=== PATIENT | female | born 1940 | race Caucasian/White ===

== ENCOUNTER 2017-01-02 08:35 | Emergency (ER) | payer MEDICARE, OTHER, BC ==
[~2017-01-02] VITALS: Ht 154.9 cm; Wt 72.0 kg
[~2017-01-02 08:35] MED LIST: CYCL1PAK PO; HYDR-3129 PO; HYDR-3580 PO; LETR2.5T PO; MIRA25TA PO; PRAV40TA PO
[2017-01-02 08:36] VITALS: BP 166/81; PULSE 115; RESP 18; TEMP 99.5; O2SAT 95
[2017-01-02] MEDS ORDERED: NORC5TAB PO ×2 (09:41→09:44)
[2017-01-02] MEDS ORDERED: CYCL1TAB29 PO ×2 (09:41→09:44)
--- NOTE | 2017-01-02 09:42 | PD ---
HPI Chief Complaint: Pain: Acute or Chronic Time Seen by Provider: 09:27 Travel History International Travel<30 days: No Contact w/Intl Traveler<30days: No Traveled to known affect area: No History of Present Illness HPI Patient is a 76-year-old female with history of breast cancer who presents emergency Department with complaint of neck pain. Patient states that for the last 2 days she has had pain in her left shoulder blade region that radiates up into the posterior neck. This is throbbing, achy and made worse with movement, lifting above the head. She takes Clayton chronically for chronic back pain. Took 3 of these yesterday with some improvement. This morning, patient ran out of her Flexeril, which also typically helps, prompting her ER visit. She has not had any chest pain, shortness of breath, palpitations and denies any history of cardiac disease. No pleuritic symptoms, history of DVT or PE. PFSH Past Medical History Arthritis: No Asthma: No Autoimmune Disease: No Blood Disorders: No Anxiety: No Depression: No Heart Rhythm Problems: No Cancer: Yes (right breast) Cardiovascular Problems: No High Cholesterol: Yes Chemotherapy: Yes Chest Pain: No Congestive Heart Failure: No COPD: No Cerebrovascular Accident: No Diabetes: No Diminished Hearing: No Endocrine: No GERD: No Genitourinary: No Hepatitis: No Hiatal Hernia: No Hypertension: No Immune Disorder: No Implanted Vascular Access Dvce: Yes (LEFT SUBCL. INFUSAPORT INSERTED 09/2012) Kidney Stones: No Musculoskeletal: Yes (BACK PAIN ) Neurologic: No Psychiatric: No Reproductive: No Respiratory: No Immunizations Current: No Migraines: No Radiation Therapy: Yes (last year) Renal Failure: No Seizures: No Sickle Cell Disease: No Sleep Apnea: No Thyroid Disease: No Ulcer: No ?: Not Menopausal: Yes : 2 Para: 2 Past Surgical History Abdominal Surgery: No AICD: No Arteriovenous Shunt: No Cardiac Surgery: No Ear Surgery: No Endocrine Surgery: No Eye Surgery: No Genitourinary Surgery: No Gynecologic Surgery: No Insulin Pump: No Joint Replacement: No Mastectomy: Yes (RIGHT BREAST 09/27/12) Oral Surgery: No Pacemaker: No Thoracic Surgery: Yes (right breast mastectomy right breast bx) Other Surgery: Yes (PORT REMOVED 10/2013) Social History Alcohol Use: No Tobacco Use: No Substance Use: No Allergies-Medications (Allergen,Severity, Reaction): Coded Allergies: Codeine (Verified Allergy, Severe, palpitations, 11/13/14) Reported Meds & Prescriptions Reported Meds & Active Scripts Active Hydrocodone/Acetaminophen 7.5 mg/325 mg 1 Tab Tab 1 Tab PO Q6H PRN Clayton 10/325 (Hydrocodone-Acetaminophen 10/325) Acetaminophen 325/10 Hydrocodone Tab 1 Tab PO TID PRN Reported Myrbetriq (Mirabegron) 25 Mg Tab 25 Mg PO DAILY Letrozole 2.5 Mg Tab 2.5 Mg PO DAILY Pravachol 40 Mg Tab 40 Mg PO EVERY OTHER DAY Cyclobenzaprine Hcl (Cyclobenzaprine HCl) 10 Mg Tab 10 Mg PO HSPRN Review of Systems Except as stated in HPI: all other systems reviewed are Neg Physical Exam Narrative GENERAL: Well-appearing elderly female in no acute distress SKIN: Warm and dry. HEAD: Normocephalic. EYES: No scleral icterus. No injection or drainage. ENT: Mucous membranes pink and moist. NECK: Supple. Patient is holding herself tense in the neck and prefers not to move. She has reproducible tenderness to palpation in the left paracervical muscles extending down into the left scapular region with palpable spasm. CARDIOVASCULAR: Initially tachycardic, normalized upon recheck. No murmur appreciated. RESPIRATORY: No accessory muscle use. Clear to auscultation. Breath sounds equal bilaterally. MUSCULOSKELETAL: Good distal sensation and pulses. Normal gait. Range of motion of the left shoulder with greater than 90 abduction reproduces patient' s pain. NEUROLOGICAL: Awake and alert. Normal speech. PSYCHIATRIC: Appropriate mood and affect; insight and judgment normal. Data Data Last Documented VS Vital Signs Date Time Temp Pulse Resp B/P Pulse Ox O2 Delivery O2 Flow Rate FiO2 01/02/17 08:36 99.5 115 18 166/81 95 Room Air Orders Electrocardiogram (01/02/17 ) MDM Medical Decision Making Medical Screen Exam Complete: Yes Emergency Medical Condition: Yes Medical Record Reviewed: Yes Differential Diagnosis 76-year-old female with history of breast cancer here with 2 days of left-sided neck/scapular pain worse with movement. Exam is consistent with very musculoskeletal, reproducible pain. She does not have any symptoms of chest pain, shortness of breath or pleuritic pain to suggest PE, ACS. Narrative Course Patient placed on monitor. Twelve-lead EKG shows sinus tachycardia with right bundle-branch block, rate 109. Patient's heart rate was rechecked, and has normalized. Patient's symptoms are very muscular, similar to her previous history of back pain. She typically responds to hydrocodone and Flexeril but ran out of the Flexeril. We'll refill both of these until she can follow-up with her PCP. Diagnosis Primary Impression: Trapezius muscle spasm Additional Impression: Cervical radiculopathy Referrals: Primary Care Physician as needed Patient Instructions: Cervical Radiculopathy (ED), General Instructions, Muscle Spasm (ED) Additional Instructions: Ice the affected area 20 minutes at a time 3-4 times daily. Alternate with heat. Hydrocodone, Flexeril as needed for pain, muscle spasm. Follow-up with primary care provider if symptoms persist and return to the ER for the warning signs discussed. Med/Other Pt SpecificInfo: Prescription(s) given Scripts Cyclobenzaprine (Flexeril)10 Mg Tab10 Mg PO TID #21 TAB Ref 0 Prov:Chanel Shell MD 01/02/17 Hydrocodone-Acetaminophen (Clayton)5-325 mg Tab1-2 Tab PO Q6H PRN (PAIN) #15 TAB Ref 0 Prov:Chanel Shell MD 01/02/17 Disposition: 01 DISCHARGE HOME Condition: Stable Chanel Shell MD Jan 02, 2017 09:42
[2017-01-02 09:43] VITALS: PULSE 99
--- NOTE | 2017-01-02 18:09 | EKG ---
Date Performed: 01/02/2017 Time Performed: 08:49:00 PTAGE: 76 years EKG: SINUS TACHYCARDIA LEFT ATRIAL ENLARGEMENT RIGHT BUNDLE BRANCH BLOCK IS NEW SINCE THE PRIOR TRACING LEFT ANTERIOR FASCICULAR BLOCK ABNORMAL ECG PREVIOUS TRACING : 11/13/2014 23.59 DOCTOR: Avinash Portillo Interpretating Date/Time 01/02/2017 18:07:48
[2017-01-03] MEDS ORDERED: NORC5TAB PO (13:01)
== END 2017-01-02 10:30 | disposition home or self-care (01) ==
LOC: NETRI 08:35
DX: M62.838 Other muscle spasm (principal); M54.12 Radiculopathy, cervical region; R94.31 Abnormal electrocardiogram [ECG] [EKG]; Z85.3 Personal history of malignant neoplasm of breast
CPT/HCPCS: 93005

== ENCOUNTER 2017-08-11 12:14 | Inpatient (IN) | payer MEDICARE, BC, OTHER ==
[~2017-08-11] VITALS: Ht 160 cm; Wt 63.5 kg
[2017-08-11] VITALS (7 sets, daily range): BP systolic 168–239; BP diastolic 86–116; PULSE 106–120; RESP 17–24; TEMP 97.6–99; O2SAT 94–99
[~2017-08-11 12:14] MED LIST changes: +CYCL1TAB29 PO; +NORC5TAB PO
--- NOTE | 2017-08-11 12:38 | PD ---
Physical Exam Date Seen by Provider: Aug 11, 2017 Time Seen by Provider: 12:29 Narrative 76-year-old female resents to the emergency Department with fall approximately one week ago with 3 subsequent falls since then according to the daughter. Patient is complaining of dizziness, disorientation. Patient was recently put on an anti-anxiety medication with secondary lethargy according to the daughter. Her first fall was when she was in the shower and she had "cream on the bottom of her foot which caused her to slip and fall lifestyle consultant. She is having increased difficulty concentrating, but denies headache. Recently was placed on Paxil 10 mg daily approximately one week ago. Patient now has bilateral knee pain. She has nausea and vomiting last evening his diarrhea this morning. He is complaining of lower abdominal discomfort. Vital signs are stable. Patient is awaiting med bed placement Data Data Last Documented VS Vital Signs Date Time Temp Pulse Resp B/P (MAP) Pulse Ox O2 Delivery O2 Flow Rate FiO2 08/11/17 12:16 99.0 120 20 239/116 (157) 95 Room Air [facility] Medical Record Reviewed: Yes Supervised Visit with DOMINGO: Yes Condition: Stable Rivas Denis Aug 11, 2017 12:38
[2017-08-11] MEDS ORDERED: HYDR-3583 PO (13:03)
[2017-08-11] MEDS ORDERED: PRAV40TA2 PO (13:03)
[2017-08-11] MEDS ORDERED: CITA10TA4 PO (13:03)
[2017-08-11] MEDS ORDERED: LETR2.5T PO (13:03)
[2017-08-11] MEDS ORDERED: LOSA50TA PO (13:03)
[2017-08-11] MEDS ORDERED: hydrALAZINE HCL 20 MG/ML VIAL IV PUSH ONE (13:15)
[2017-08-11] MEDS ORDERED: SODIUM CHLORIDE 0.9% FLUSH 10 ML FLUSH IVF PRN (13:15)
--- NOTE | 2017-08-11 14:01 | RADRPT ---
EXAM DATE/TIME: 08/11/2017 13:15 [place] COMPARISON: CHEST SINGLE AP, November 13, 2014, 23:28. INDICATIONS : Chest pain from falling in shower. MEDICAL HISTORY : None. SURGICAL HISTORY : None. ENCOUNTER: Initial ACUITY: 1 day PAIN SCORE: 5/10 LOCATION: Chest, midline. FINDINGS: Portable AP view of the chest demonstrates a normal-sized cardiac silhouette. No effusion, consolidat ion, or pneumothorax is visualized. The bones and soft tissues demonstrate no acute abnormality. EKG lines overlie the patient. CONCLUSION: No acute cardiopulmonary abnormality is identified. Nelson Dutta MD on August 11, 2017 at 13:59 Board Certified Radiologist. This report was verified electronically.
[2017-08-11 14:03] LABS: AUTOMATED NEUTROPHIL # 8.6 TH/MM3 (1.8-7.7); BASOPHIL # 0.1 TH/MM3 (0-0.2); BASOPHIL % 0.9 % (0.0-2.0); EOSINOPHIL # 0.1 TH/MM3 (0-0.4); EOSINOPHIL % 0.6 % (0.0-4.0); HEMATOCRIT 33.7 % (35.0-46.0); HEMO FLAGS DIFF FINAL; LYMPH % 8.6 % (9.0-44.0); LYMPHOCYTE # 0.9 TH/MM3 (1.0-4.8); MEAN CELL VOLUME 84.9 FL (80.0-100.0); MEAN CORPUSCULAR HEMOGLOBIN 28.2 PG (27.0-34.0); MEAN CORPUSCULAR HGB CONC 33.2 % (32.0-36.0); MONO % 9.8 % (0.0-8.0); NEUT % 80.1 % (16.0-70.0); PLATELET COUNT 342 TH/MM3 (150-450); RED BLOOD COUNT 3.97 MIL/MM3 (4.00-5.30); RED CELL DISTRIBUTION WIDTH 14.3 % (11.6-17.2); WHITE BLOOD COUNT 10.8 TH/MM3 (4.0-11.0)
[2017-08-11 14:44] LABS: BICARBONATE 27.8 MEQ/L (21.0-32.0); POTASSIUM 4.5 MEQ/L (3.5-5.1); TOTAL BILIRUBIN ADULT 0.3 MG/DL (0.2-1.0)
[2017-08-11 14:47] LABS: CALCIUM-PROTEIN CORRECTED 14.6 MG/DL (8.5-10.1)
--- NOTE | 2017-08-11 14:48 | PD ---
HPI Chief Complaint: Fall Time Seen by Provider: 12:48 Travel History International Travel<30 days: No Contact w/Intl Traveler<30days: No Traveled to known affect area: No History of Present Illness HPI Patient is a 76-year-old female who presents to emergency room with complaints of frequent falls. Patient reports that for the past week, she has fallen multiple times. Reports that she initially fell in the bathtub last week when she slipped on soap. Reports that over the past few days, she has fallen multiple times. Reports "i don't know why I keep falling." Daughter reports that over the past month, patient was diagnosed with hypertension and was recently started on losartan 50mg. Reports "i think that this is making me fall." Patient reports that she has had headaches the past couple days, reports that she has difficulty concentrating, reports that she saw her primary care doctor a week ago and was started on Paxil as she had a flight of ideas during her evaluation. Patient at this time complains of lower abdominal pain. Patient reports that she has had lower abdominal pain for the past few days, denies any fevers or chills, denies any nausea or vomiting. No other complaints at this time. PFSH Past Medical History Arthritis: No Asthma: No Autoimmune Disease: No Blood Disorders: No Anxiety: No Depression: No Heart Rhythm Problems: No Cancer: Yes (right breast) Cardiovascular Problems: No High Cholesterol: Yes Chemotherapy: Yes (approx 5 years ago.) Chest Pain: No Congestive Heart Failure: No COPD: No Cerebrovascular Accident: No Diabetes: No Diminished Hearing: No Endocrine: No GERD: No Genitourinary: No Hepatitis: No Hiatal Hernia: No Hypertension: No Immune Disorder: No Implanted Vascular Access Dvce: Yes (LEFT SUBCL. INFUSAPORT INSERTED 09/2012) Kidney Stones: No Medical other: Yes (Spinal stenosis macular degenerative) Musculoskeletal: Yes (BACK PAIN ) Neurologic: No Psychiatric: No Reproductive: No Respiratory: No Immunizations Current: No Migraines: No Radiation Therapy: Yes (approx 5 years ago) Renal Failure: No Seizures: No Sickle Cell Disease: No Sleep Apnea: No Thyroid Disease: No Ulcer: No Menopausal: Yes : 2 Para: 2 Past Surgical History Abdominal Surgery: No AICD: No Arteriovenous Shunt: No Cardiac Surgery: No Ear Surgery: No Endocrine Surgery: No Eye Surgery: No Genitourinary Surgery: No Gynecologic Surgery: No Insulin Pump: No Joint Replacement: No Mastectomy: Yes (RIGHT BREAST 09/27/12) Oral Surgery: No Pacemaker: No Thoracic Surgery: Yes (right breast mastectomy right breast bx) Other Surgery: Yes (PORT REMOVED 10/2013) Social History Alcohol Use: No Tobacco Use: No Substance Use: No Allergies-Medications (Allergen,Severity, Reaction): Coded Allergies: codeine (Unverified Allergy, Severe, palpitations, 08/11/17) Reported Meds & Prescriptions Reported Meds & Active Scripts Active Flexeril (Cyclobenzaprine HCl) 10 Mg Tab 10 Mg PO TID Reported Pravastatin 40 Mg Tab 40 Mg PO DAILY Losartan (Losartan Potassium) 50 Mg Tab 50 Mg PO DAILY Letrozole 2.5 Mg Tab 1 Tab PO DAILY Citalopram (Citalopram Hydrobromide) 10 Mg Tab 10 Mg PO DAILY Hydrocodone-Acetaminophen 10-325 mg Tab 1 Tab PO PRN Review of Systems General / Constitutional: No: Fever Eyes: No: Visual changes HENT: Positive: Headaches, Vertigo, Lightheadedness Cardiovascular: No: Chest Pain or Discomfort Respiratory: No: Shortness of Breath Gastrointestinal: Positive: Abdominal Pain Genitourinary: No: Dysuria Musculoskeletal: No: Pain Skin: No Rash Neurologic: Positive: Dizziness, Headache, No: Weakness Psychiatric: No: Depression Endocrine: No: Polydipsia Hematologic/Lymphatic: No: Easy Bruising Physical Exam Narrative GENERAL: moderate distress SKIN: Focused skin assessment warm/dry. HEAD: Atraumatic. Normocephalic. EYES: Pupils equal and round. No scleral icterus. No injection or drainage. ENT: No nasal bleeding or discharge. Mucous membranes pink and moist. NECK: Trachea midline. No JVD. CARDIOVASCULAR: Regular rate and rhythm. No murmur appreciated. RESPIRATORY: No accessory muscle use. Clear to auscultation. Breath sounds equal bilaterally. GASTROINTESTINAL: Abdomen soft, non-tender, nondistended. Hepatic and splenic margins not palpable. MUSCULOSKELETAL: No obvious deformities. No clubbing. Bruising to b/l knees. No edema. NEUROLOGICAL: Awake and alert. No obvious cranial nerve deficits. Motor grossly within normal limits. Normal speech. PSYCHIATRIC: Appropriate mood and affect; insight and judgment normal. Data Data Last Documented VS Vital Signs Date Time Temp Pulse Resp B/P (MAP) Pulse Ox O2 Delivery O2 Flow Rate FiO2 08/11/17 14:42 18 96 Room Air 08/11/17 14:30 114 08/11/17 12:16 99.0 Orders Orders Electrocardiogram (08/11/17 13:12) Prothrombin Time / Inr (Pt) (08/11/17 13:12) Act Partial Throm Time (Ptt) (08/11/17 13:12) Complete Blood Count With Diff (08/11/17 13:12) Comprehensive Metabolic Panel (08/11/17 13:12) Creatine Kinase (Cpk) (08/11/17 13:12) Troponin I (08/11/17 13:12) Urinalysis - C+S If Indicated (08/11/17 13:12) Ct Brain W/O Iv Contrast(Rout) (08/11/17 13:12) Chest, Single Ap (08/11/17 13:12) Ecg Monitoring (08/11/17 13:12) Iv Access Insert/Monitor (08/11/17 13:12) Oximetry (08/11/17 13:12) Blood Glucose (08/11/17 13:12) Sodium Chloride 0.9% Flush (Ns Flush) (08/11/17 13:15) Hydralazine Inj (Apresoline Inj) (08/11/17 13:15) Ct Abd/Pel W/O Iv Contrast (08/11/17 15:10) Ondansetron Inj (Zofran Inj) (08/11/17 15:30) Sodium Chlor 0.9% 1000 Ml Inj (Ns 1000 M (08/11/17 16:15) Urinary Catheter Insert/Apply (08/11/17 17:19) Citalopram (Celexa) (08/12/17 09:00) Cyclobenzaprine (Flexeril) (08/11/17 18:00) Pravastatin (Pravachol) (08/12/17 09:00) Patient Own Medication (08/12/17 09:00) Admit Order (Ed Use Only) (08/11/17 17:24) Labs Laboratory Tests Test 08/11/17 12:58 08/11/17 17:15 White Blood Count 10.8 TH/MM3 Red Blood Count 3.97 MIL/MM3 Hemoglobin 11.2 GM/DL Hematocrit 33.7 % Mean Corpuscular Volume 84.9 FL Mean Corpuscular Hemoglobin 28.2 PG Mean Corpuscular Hemoglobin Concent 33.2 % Red Cell Distribution Width 14.3 % Platelet Count 342 TH/MM3 Mean Platelet Volume 9.4 FL Neutrophils (%) (Auto) 80.1 % Lymphocytes (%) (Auto) 8.6 % Monocytes (%) (Auto) 9.8 % Eosinophils (%) (Auto) 0.6 % Basophils (%) (Auto) 0.9 % Neutrophils # (Auto) 8.6 TH/MM3 Lymphocytes # (Auto) 0.9 TH/MM3 Monocytes # (Auto) 1.1 TH/MM3 Eosinophils # (Auto) 0.1 TH/MM3 Basophils # (Auto) 0.1 TH/MM3 CBC Comment DIFF FINAL Differential Comment Prothrombin Time 11.0 SEC Prothromb Time International Ratio 1.0 RATIO Activated Partial Thromboplast Time 22.0 SEC Blood Urea Nitrogen 56 MG/DL Creatinine 5.20 MG/DL Random Glucose 110 MG/DL Total Protein 8.2 GM/DL Albumin 3.6 GM/DL Calcium Level 15.5 MG/DL Alkaline Phosphatase 76 U/L Aspartate Amino Transf (AST/SGOT) 22 U/L Alanine Aminotransferase (ALT/SGPT) 19 U/L Total Bilirubin 0.3 MG/DL Sodium Level 133 MEQ/L Potassium Level 4.5 MEQ/L Chloride Level 97 MEQ/L Carbon Dioxide Level 27.8 MEQ/L Anion Gap 8 MEQ/L Estimat Glomerular Filtration Rate 8 ML/MIN Protein Corrected Calcium 14.6 MG/DL Total Creatine Kinase 59 U/L Troponin I 0.03 NG/ML Urine Color STRAW Urine Turbidity SLIGHT Urine pH 6.5 Urine Specific [place] 1.010 Urine Protein 100 mg/dL Urine Glucose (UA) NEG mg/dL Urine Ketones NEG mg/dL Urine Occult Blood TRACE Urine Nitrite NEG Urine Bilirubin NEGATIVE Urine Urobilinogen 0.2 MG/DL Urine Leukocyte Esterase MOD Urine WBC 0-2 /hpf Urine Squamous Epithelial Cells 0-5 /hpf Microscopic Urinalysis Comment CATH-CULT NOT IND MDM Medical Decision Making Medical Screen Exam Complete: Yes Emergency Medical Condition: Yes Medical Record Reviewed: Yes Interpretation(s) EKG at 1350: Sinus tach at 108bpm, qt/qtc: 330/393, rbbb Vital Signs Date Time Temp Pulse Resp B/P (MAP) Pulse Ox O2 Delivery O2 Flow Rate FiO2 08/11/17 12:46 109 18 Room Air 08/11/17 12:38 119 204/106 (138) 08/11/17 12:29 08/11/17 12:16 99.0 120 20 239/116 (157) 95 Room Air Laboratory Tests Test 08/11/17 12:58 White Blood Count 10.8 TH/MM3 (4.0-11.0) Red Blood Count 3.97 MIL/MM3 (4.00-5.30) Hemoglobin 11.2 GM/DL (11.6-15.3) Hematocrit 33.7 % (35.0-46.0) Mean Corpuscular Volume 84.9 FL (80.0-100.0) Mean Corpuscular Hemoglobin 28.2 PG (27.0-34.0) Mean Corpuscular Hemoglobin Concent 33.2 % (32.0-36.0) Red Cell Distribution Width 14.3 % (11.6-17.2) Platelet Count 342 TH/MM3 (150-450) Mean Platelet Volume 9.4 FL (7.0-11.0) Neutrophils (%) (Auto) 80.1 % (16.0-70.0) Lymphocytes (%) (Auto) 8.6 % (9.0-44.0) Monocytes (%) (Auto) 9.8 % (0.0-8.0) Eosinophils (%) (Auto) 0.6 % (0.0-4.0) Basophils (%) (Auto) 0.9 % (0.0-2.0) Neutrophils # (Auto) 8.6 TH/MM3 (1.8-7.7) Lymphocytes # (Auto) 0.9 TH/MM3 (1.0-4.8) Monocytes # (Auto) 1.1 TH/MM3 (0-0.9) Eosinophils # (Auto) 0.1 TH/MM3 (0-0.4) Basophils # (Auto) 0.1 TH/MM3 (0-0.2) CBC Comment DIFF FINAL Differential Comment Prothrombin Time 11.0 SEC (9.8-11.6) Prothromb Time International Ratio 1.0 RATIO Activated Partial Thromboplast Time 22.0 SEC (24.3-30.1) Differential Diagnosis Differential includes hypertensive urgency, ICH, TIA, electrolyte abnormality, colitis, uti Narrative Course Patient is a 76-year-old female who presents to emergency room from home for evaluation of falls. Patient reports that she has had multiple falls over the past week, reports that her blood pressure has been out of control and she recently started losartan 1 month ago. Patient denies loss of consciousness with her falls, reports concerns as symptoms have been progressively worsening and patient has increased confusion. Labs as well as ct studies ordered. patient was placed on a cardiac monitor technician - will continue to monitor Vital Signs Date Time Temp Pulse Resp B/P (MAP) Pulse Ox O2 Delivery O2 Flow Rate FiO2 08/11/17 14:42 18 96 Room Air 08/11/17 14:30 114 24 168/88 (114) 98 Room Air 08/11/17 13:44 106 18 189/96 (127) 99 Room Air 08/11/17 12:50 112 18 197/109 (138) 96 Room Air 08/11/17 12:46 109 18 Room Air 08/11/17 12:38 119 204/106 (138) 08/11/17 12:29 08/11/17 12:16 99.0 120 20 239/116 (157) 95 Room Air Laboratory Tests Test 08/11/17 12:58 White Blood Count 10.8 TH/MM3 (4.0-11.0) Red Blood Count 3.97 MIL/MM3 (4.00-5.30) Hemoglobin 11.2 GM/DL (11.6-15.3) Hematocrit 33.7 % (35.0-46.0) Mean Corpuscular Volume 84.9 FL (80.0-100.0) Mean Corpuscular Hemoglobin 28.2 PG (27.0-34.0) Mean Corpuscular Hemoglobin Concent 33.2 % (32.0-36.0) Red Cell Distribution Width 14.3 % (11.6-17.2) Platelet Count 342 TH/MM3 (150-450) Mean Platelet Volume 9.4 FL (7.0-11.0) Neutrophils (%) (Auto) 80.1 % (16.0-70.0) Lymphocytes (%) (Auto) 8.6 % (9.0-44.0) Monocytes (%) (Auto) 9.8 % (0.0-8.0) Eosinophils (%) (Auto) 0.6 % (0.0-4.0) Basophils (%) (Auto) 0.9 % (0.0-2.0) Neutrophils # (Auto) 8.6 TH/MM3 (1.8-7.7) Lymphocytes # (Auto) 0.9 TH/MM3 (1.0-4.8) Monocytes # (Auto) 1.1 TH/MM3 (0-0.9) Eosinophils # (Auto) 0.1 TH/MM3 (0-0.4) Basophils # (Auto) 0.1 TH/MM3 (0-0.2) CBC Comment DIFF FINAL Differential Comment Prothrombin Time 11.0 SEC (9.8-11.6) Prothromb Time International Ratio 1.0 RATIO Activated Partial Thromboplast Time 22.0 SEC (24.3-30.1) Blood Urea Nitrogen 56 MG/DL (7-18) Creatinine 5.20 MG/DL (0.50-1.00) Random Glucose 110 MG/DL (74-106) Total Protein 8.2 GM/DL (6.4-8.2) Albumin 3.6 GM/DL (3.4-5.0) Calcium Level 15.5 MG/DL (8.5-10.1) Alkaline Phosphatase 76 U/L (45-117) Aspartate Amino Transf (AST/SGOT) 22 U/L (15-37) Alanine Aminotransferase (ALT/SGPT) 19 U/L (10-53) Total Bilirubin 0.3 MG/DL (0.2-1.0) Sodium Level 133 MEQ/L (136-145) Potassium Level 4.5 MEQ/L (3.5-5.1) Chloride Level 97 MEQ/L (98-107) Carbon Dioxide Level 27.8 MEQ/L (21.0-32.0) Anion Gap 8 MEQ/L (5-15) Estimat Glomerular Filtration Rate 8 ML/MIN (>89) Protein Corrected Calcium 14.6 MG/DL (8.5-10.1) Total Creatine Kinase 59 U/L (26-192) Troponin I 0.03 NG/ML (0.02-0.05) Last Impressions Abdomen/Pelvis CT 08/11/17 1510 Signed Impressions: Service Date/Time: Friday, August 11, 2017 15:39 - CONCLUSION: 1. Multiple new ill-defined low-attenuation lesions in the liver characteristic of metastatic disease. There is new ascitic fluid as well. 2. Multiple subtle scattered lytic osseous lesions most characteristic of metastatic disease. 3. The uterus is more prominent than on the prior study with ill-defined masslike areas along the posterior aspect. The uterus is not well defined from the surrounding bowel secondary to lack of contrast. 4. Bilateral moderate to severe hydronephrosis. There is dilatation of both ureters. 5. Bladder wall thickening involving the posterior and superior aspects of the bladder which is new from the prior study. This is nonspecific but of concern for possible tumor given the bilateral hydronephrosis. Marshal Ayala MD Head CT [id number]/11/[id number] Signed Impressions: Service Date/Time: Friday, August 11, 2017 15:32 - CONCLUSION: Negative trauma CT Marshal Ayala MD Chest X-Ray [id number]/11/[id number] Signed Impressions: Service Date/Time: Friday, August 11, 2017 13:15 - CONCLUSION: No acute cardiopulmonary abnormality is identified. Nelson Dutta MD patient with cr of 5.2, patient with bilateral hydronephrosis, will require admission case reviewed with Dr. Mejias who accepts pt to service Diagnosis Primary Impression: Renal failure Qualified Codes: N17.9 - Acute kidney failure, unspecified Additional Impression: Hydronephrosis Qualified Codes: N13.2 - Hydronephrosis with renal and ureteral calculous obstruction Admitting Information Admitting Physician Requests: Admit Condition: Stable ZacariasEmber Verenice REAVES Aug 11, 2017 14:48
[2017-08-11] MEDS ORDERED: ONDANSETRON HCL 4 MG/2 ML VIAL IV PUSH ONE (15:30)
[2017-08-11] MEDS ORDERED: SODIUM CHLOR 0.9% 1000 ML INJ 1,000 ML IV ONE (16:15)
--- NOTE | 2017-08-11 16:16 | RADRPT ---
EXAM DATE/TIME: 08/11/2017 15:39 [facility] COMPARISON: CT ABDOMEN & PELVIS W/O CONTRAST, June 12, 2014, 22:39. INDICATIONS : Lower abdomen pain and nausea today. ORAL CONTRAST: No oral contrast ingested. RADIATION DOSE: 9.89 CTDIvol (mGy) MEDICAL HISTORY : Breast carcinoma SURGICAL HISTORY : None. ENCOUNTER: Initial ACUITY: 1 day PAIN SCALE: 7/10 LOCATION: Bilateral lower quadrant TECHNIQUE: Volumetric scanning of the abdomen and pelvis was performed. Using automated exposure control and ad justment of the mA and/or kV according to patient size, radiation dose was kept as low as reasonably achievable to obtain optimal diagnostic quality images. DICOM format image data is available electro nically for review and comparison. FINDINGS: LOWER LUNGS: The visualized lower lungs are clear. LIVER: Liver remains normal in size and shape. There are multiple new ill-defined low-attenuation lesions in the right and left lobe of the liver. The largest is in the right lobe and measures up to 3 cm. Ther e is no ductal dilatation. The gallbladder is unremarkable. There is a small to moderate amount of as citic fluid. SPLEEN: Normal size without lesion. PANCREAS: Within normal limits. KIDNEYS: Normal in size and shape. A moderate-sized cyst is again noted extending off the upper pole of the ri ght kidney. There is bilateral moderate severe hydronephrosis now noted with dilatation of both urete rs. There are no renal calculi. ADRENAL GLANDS: Within normal limits. VASCULAR: There is no aortic aneurysm. BOWEL/MESENTERY: The stomach, small bowel, and colon demonstrate no acute abnormality. There is no free intraperitone al air or fluid. There is a large amount of stool now noted in the distal colon. Ascites is present. ABDOMINAL WALL: Within normal limits. RETROPERITONEUM: There is no lymphadenopathy. BLADDER: Is mild bladder wall thickening involving the posterior and upper portions of the bladder wall. REPRODUCTIVE: The uterus is more prominent on the current study and is not well-defined. There are ill-defined mass like structures in the posterior aspect of the uterus INGUINAL: There is no lymphadenopathy or hernia. MUSCULOSKELETAL: There are multiple scattered subtle lucent lesions involving the vertebral column several ribs as wel l as the pelvic bones. CONCLUSION: 1. Multiple new ill-defined low-attenuation lesions in the liver characteristic of metastatic disease . There is new ascitic fluid as well. 2. Multiple subtle scattered lytic osseous lesions most characteristic of metastatic disease. 3. The uterus is more prominent than on the prior study with ill-defined masslike areas along the pos terior aspect. The uterus is not well defined from the surrounding bowel secondary to lack of contras t. 4. Bilateral moderate to severe hydronephrosis. There is dilatation of both ureters. 5. Bladder wall thickening involving the posterior and superior aspects of the bladder which is new f rom the prior study. This is nonspecific but of concern for possible tumor given the bilateral hydron ephrosis. Marshal Ayala MD on August 11, 2017 at 16:06 Board Certified Radiologist. This report was verified electronically.
--- NOTE | 2017-08-11 16:19 | RADRPT ---
EXAM DATE/TIME: 08/11/2017 15:32 [facility] COMPARISON: CT BRAIN W/O CONTRAST, December 15, 2012, 10:26. INDICATIONS : Trauma, fall onto head three days ago. RADIATION DOSE: 48.90 CTDIvol (mGy) MEDICAL HISTORY : Carcinoma, breast. SURGICAL HISTORY : None. ENCOUNTER: Initial ACUITY: 1 day PAIN SCALE: 5/10 LOCATION: Bilateral head TECHNIQUE: Multiple contiguous axial images were obtained of the head. Using automated exposure control and adj ustment of the mA and/or kV according to patient size, radiation dose was kept as low as reasonably a chievable to obtain optimal diagnostic quality images. DICOM format image data is available electro nically for review and comparison. FINDINGS: CEREBRUM: The ventricles are normal for age. No evidence of midline shift, mass lesion, hemorrhage or acute in farction. No extra-axial fluid collections are seen. POSTERIOR FOSSA: The cerebellum and brainstem are intact. The 4th ventricle is midline. The cerebellopontine angle i s unremarkable. EXTRACRANIAL: The visualized portion of the orbits is intact. SKULL: The calvaria is intact. No evidence of skull fracture. CONCLUSION: Negative trauma CT Marshal Ayala MD on August 11, 2017 at 16:15 Board Certified Radiologist. This report was verified electronically.
[2017-08-11] MEDS ORDERED: MAGNESIUM HYDROXIDE SUSP 30 ML CUP PO PRN (17:30)
[2017-08-11] MEDS ORDERED: LACTULOSE SYRUP 20 GM/30 ML CUP PO PRN (17:30)
[2017-08-11] MEDS ORDERED: SODIUM CHLORIDE 0.9% FLUSH 10 ML FLUSH IV FLUSH PRN (17:30)
[2017-08-11] MEDS ORDERED: SENNOSIDES 8.6 MG TAB PO PRN (17:30)
[2017-08-11] MEDS ORDERED: BISACODYL 10 MG SUPP RECTAL PRN (17:30)
[2017-08-11] MEDS ORDERED: NALOXONE HCL 0.4 MG/ML AMP IV PUSH PRN (17:30)
[2017-08-11] MEDS ORDERED: DILTIAZEM INJ 125 MG in SODIUM CHLORIDE 0.9% INJ 100 ML IV PRN (18:00)
[2017-08-11] MEDS ORDERED: DILTIAZEM HCL 25 MG/5 ML VIAL IV PUSH ONE (18:00)
[2017-08-11] MEDS ORDERED: MORPHINE SULFATE 4 MG/ML INJ IV PUSH PRN (18:00)
[2017-08-11 18:07] LABS: BLOOD, URINE TRACE (NEG); GLUCOSE,URINE NEG (NEG); KETONE, URINE NEG (NEG); NITRITE,URINE NEG (NEG); PH, URINE 6.5 (5.0-8.5); URINE COLOR STRAW (YELLW/STRAW); WBC, URINE 0-2 /hpf (0-5)
[2017-08-11 18:08] LABS: CULTURE IF INDICATED CATH CULTURE NOT IND; SQUAMOUS EPITHELIAL CELL URINE 0-5 /hpf (0-5)
[2017-08-11 18:09] LABS: COMMENT (UR) CATH-CULT NOT IND
--- NOTE | 2017-08-11 18:22 | HHI.HP ---
[facility] Service [facility] Primary Care Physician Kam Lara MD Admission Diagnosis Acute renal failure Diagnoses: (1) Accelerated essential hypertension Diagnosis: Principal (2) Serum calcium elevated Diagnosis: Principal (3) UTI (lower urinary tract infection) Diagnosis: Principal (4) Renal failure Diagnosis: Principal (5) Hydronephrosis Diagnosis: Principal (6) Breast cancer Diagnosis: Secondary (7) Anemia Diagnosis: Principal Chief Complaint: 76-year-old white female came in the hospital with frequent falls over the past week. Patient states daughter says she has fell 3 times at least, but patient doesn't remember. Has recently been placed on BP medicine by her PCP, still has elevated blood pressure, 204/106 on admission to ER, heart rate tachycardic, appears to be sinus tach around 110, high noted 119. Patient also is complaining of abdominal pain, left and right lower quadrants pain has been associated with nausea and decreased appetite for approximately one month. States approximately 8 pound weight loss over the past month, appetite decrease even more over the past 5 days. Patient notes polyuria, but no dysuria. Denies chest pain, no shortness of breath, occasional headache but none now (Geovanna Roy) Travel History International Travel<30 Days: No Contact w/Intl Traveler <30 Da: No Traveled to Known Affected Are: No (Geovanna Roy) History of Present Illness HTN uncontrolled, recent new meds taken Has been falling at least 3 times in 1 week per daughter lower abd. pain X 1 monthwith decreased wt. loss, tachycardia on adm. (Geovanna Roy) Review of Systems ROS Limitations: Poor Historian Constitutional: COMPLAINS OF: Fatigue, Weight loss, Dizziness, Change in appetite Gastrointestinal: COMPLAINS OF: Abdominal pain, Nausea, Vomiting (X1) Musculoskeletal: COMPLAINS OF: Joint pain, Muscle aches Neurologic: COMPLAINS OF: Poor Balance Psychiatric: COMPLAINS OF: Anxiety (Geovanna Roy) Past Family Social History Past Medical History History of right breast cancer received chemotherapy approximately 5 years ago hyperlipidemia urinary frequency over the past month hypertension spinal stenosis macular degeneration degenerative disc disease back pain Past Surgical History Chemotherapy [id number] 2011 Mastectomy right breast Reported Medications Flexeril Pravastatin Losartan Hydrocodone acetaminophen Letrozole Citalopram (Geovanna Roy) Allergies: Coded Allergies: codeine (Unverified Allergy, Severe, palpitations, 08/11/17) Social History Patient currently and lives with her no tobacco alcohol or illicit drug use (Geovanna Roy) Physical Exam Vital Signs Vital Signs Date Time Temp Pulse Resp B/P (MAP) Pulse Ox O2 Delivery O2 Flow Rate FiO2 08/11/17 14:42 18 96 Room Air 08/11/17 14:30 114 24 168/88 (114) 98 Room Air 08/11/17 13:44 106 18 189/96 (127) 99 Room Air 08/11/17 12:50 112 18 197/109 (138) 96 Room Air 08/11/17 12:46 109 18 Room Air 08/11/17 12:38 119 204/106 (138) 08/11/17 12:29 08/11/17 12:16 99.0 120 20 239/116 (157) 95 Room Air Physical Exam GENERAL: This is a elderly patient, resting on stretcher, awake fair historian to current events otherwise poor historian, SKIN: No rashes Cool and dry. HEAD: Normocephalic. Small knot/abrasion secondary to fall, right occipital area EYES: Pupils equal round and reactive. Extraocular motions intact. ENT: Nose without bleeding, purulent drainage or septal hematoma. Uvula midline. Airway patent. NECK: Trachea midline. Supple, nontender, CARDIOVASCULAR: Tachycardic rate and rhythm no audible murmurs rubs or gallops RESPIRATORY: Clear to auscultation. No acute shortness of breath GASTROINTESTINAL: Abdomen soft, taut, non-tender, nondistended. No pain to light palpation MUSCULOSKELETAL: Extremities with trace lower extremity edema bilaterl NEUROLOGICAL: Awake, answers most questions appropriately but is forgetful about recent events Normal speech. Laboratory Laboratory Tests Test 08/11/17 12:58 08/11/17 17:15 White Blood Count 10.8 Red Blood Count 3.97 Hemoglobin 11.2 Hematocrit 33.7 Mean Corpuscular Volume 84.9 Mean Corpuscular Hemoglobin 28.2 Mean Corpuscular Hemoglobin Concent 33.2 Red Cell Distribution Width 14.3 Platelet Count 342 Mean Platelet Volume 9.4 Neutrophils (%) (Auto) 80.1 Lymphocytes (%) (Auto) 8.6 Monocytes (%) (Auto) 9.8 Eosinophils (%) (Auto) 0.6 Basophils (%) (Auto) 0.9 Neutrophils # (Auto) 8.6 Lymphocytes # (Auto) 0.9 Monocytes # (Auto) 1.1 Eosinophils # (Auto) 0.1 Basophils # (Auto) 0.1 CBC Comment DIFF FINAL Differential Comment Prothrombin Time 11.0 Prothromb Time International Ratio 1.0 Activated Partial Thromboplast Time 22.0 Blood Urea Nitrogen 56 Creatinine 5.20 Random Glucose 110 Total Protein 8.2 Albumin 3.6 Calcium Level 15.5 Alkaline Phosphatase 76 Aspartate Amino Transf (AST/SGOT) 22 Alanine Aminotransferase (ALT/SGPT) 19 Total Bilirubin 0.3 Sodium Level 133 Potassium Level 4.5 Chloride Level 97 Carbon Dioxide Level 27.8 Anion Gap 8 Estimat Glomerular Filtration Rate 8 Protein Corrected Calcium 14.6 Total Creatine Kinase 59 Troponin I 0.03 (Geovanna Roy) Result Diagram: 08/11/17 1258 08/11/17 1258 Imaging Last Impressions Abdomen/Pelvis CT 08/11/17 1510 Signed Impressions: Service Date/Time: Friday, August 11, 2017 15:39 - CONCLUSION: 1. Multiple new ill-defined low-attenuation lesions in the liver characteristic of metastatic disease. There is new ascitic fluid as well. 2. Multiple subtle scattered lytic osseous lesions most characteristic of metastatic disease. 3. The uterus is more prominent than on the prior study with ill-defined masslike areas along the posterior aspect. The uterus is not well defined from the surrounding bowel secondary to lack of contrast. 4. Bilateral moderate to severe hydronephrosis. There is dilatation of both ureters. 5. Bladder wall thickening involving the posterior and superior aspects of the bladder which is new from the prior study. This is nonspecific but of concern for possible tumor given the bilateral hydronephrosis. Marshal Ayala MD Head CT 08/11/17 1312 Signed Impressions: Service Date/Time: Friday, August 11, 2017 15:32 - CONCLUSION: Negative trauma CT Marshal Ayala MD Chest X-Ray 08/11/17 1312 Signed Impressions: Service Date/Time: Friday, August 11, 2017 13:15 - CONCLUSION: No acute cardiopulmonary abnormality is identified. Nelson Dutta MD (Geovanna Roy) Septic Shock Reassessment Heart: Other (tachycardia) Lungs: Clear Skin: Warm, Dry Peripheral Pulses: Bounding Right Radial Bounding Left Radial Bounding Right Popliteal Bounding Left Popliteal Bounding Right Dorsalis Pedis Bounding Left Dorsalis Pedis Bounding Right Posterior Tibial Bounding Left Posterior Tibial Capillary Refill: Brisk (Geovanna Roy) Caprini VTE Risk Assessment Caprini VTE Risk Assessment: No/Low Risk (score <= 1) Caprini Risk Assessment Model Point Value = 1 Point Value = 2 Point Value = 3 Point Value = 5 Age 41-60 Minor surgery BMI > 25 kg/m2 Swollen legs Varicose veins or History of unexplained or recurrent spontaneous Oral contraceptives or hormone replacement Sepsis (< 1 month) Serious lung disease, including pneumonia (< 1 month) Abnormal pulmonary function Acute myocardial infarction Congestive heart failure (< 1 month) History of inflammatory bowel disease Medical patient at bed rest Age 61-74 Arthroscopic surgery Major open surgery (> 45 min) Laparoscopic surgery (> 45 min) Malignancy Confined to bed (> 72 hours) Immobilizing plaster cast Central venous access Age >= 75 History of VTE Family history of VTE Factor V Leiden Prothrombin [id number] Lupus anticoagulant Anticardiolipin antibodies Elevated serum homocysteine Heparin-induced thrombocytopenia Other congenital or acquired thrombophilia Stroke (< 1 month) Elective arthroplasty Hip, pelvis, or leg fracture Acute spinal cord injury (< 1 month) Prophylaxis Regimen Total Risk Factor Score Risk Level Prophylaxis Regimen 0-1 Low Early ambulation 2 Moderate Order ONE of the following: *Sequential Compression Device (SCD) *Heparin 5000 units SQ BID 3-4 Higher Order ONE of the following medications: *Heparin 5000 units SQ TID *Enoxaparin/Lovenox 40 mg SQ daily (WT < 150 kg, CrCl > 30 mL/min) *Enoxaparin/Lovenox 30 mg SQ daily (WT < 150 kg, CrCl > 10-29 mL/min) *Enoxaparin/Lovenox 30 mg SQ BID (WT < 150 kg, CrCl > 30 mL/min) AND/OR *Sequential Compression Device (SCD) 5 or more Highest Order ONE of the following medications: *Heparin 5000 units SQ TID (Preferred with Epidurals) *Enoxaparin/Lovenox 40 mg SQ daily (WT < 150 kg, CrCl > 30 mL/min) *Enoxaparin/Lovenox 30 mg SQ daily (WT < 150 kg, CrCl > 10-29 mL/min) *Enoxaparin/Lovenox 30 mg SQ BID (WT < 150 kg, CrCl > 30 mL/min) AND *Sequential Compression Device (SCD) (Geovanna Roy) Assessment and Plan Problem List: (1) Hydronephrosis ICD Codes: N13.30 - Unspecified hydronephrosis Status: Acute (2) Renal failure ICD Codes: N19 - Unspecified kidney failure Status: Acute (3) Accelerated essential hypertension ICD Codes: I10 - Essential (primary) hypertension (4) Serum calcium elevated ICD Codes: E83.52 - Hypercalcemia (5) Breast cancer ICD Codes: C50.919 - Breast cancer Status: Acute (6) Anemia ICD Codes: D64.9 - Anemia Status: Acute Assessment and Plan Abdominal pain, left and right lower quadrant, CT scan noted with possible metastasis, liver lesions, hydronephrosis bilateral, hypercalcemia, hematology consult for their expert opinion and plan a care Vital signs monitored every 4hrs, labs to be drawn in the morning, consider pain management if needed Monitor bowel regimen, states normal BM this a.m. Hydronephrosis with renal and ureteral calculus obstruction, nephrology consult , assist with plan of care Acute kidney failure, , monitor vital signs, appreciate nephrology input Hypertension uncontrolled, medical management reconcile medications, will add hydralazine IV PO for plan of 160/90 Hypercalcemia severe, probable secondary to #1 Tachycardia, without history of heart disease, possible secondary to uncontrolled hypertension, fall, stressors, ECG monitoring and or continue telemetry Patient does have positive trace of pedal edema bilateral, Lasix 20 g IV twice a day, I&O, urinary catheter ordered in the emergency room, possible urethral calculus obstruction DVT prophylaxis heparin PUD prophylaxis, Pepcid Discussed With: Nurse, Family (patient), Other (Dr. Mejias, seen on his behalf) (Geovanna Roy) Assessment and Plan seen, examined by myself, Dr Mejias, today Discussed with patient Discussed with emergency physician Admitted with frequent falls Acute renal failure Bilateral hydronephrosis Possible liver metastases Sinus tachycardia Severe hypertension Severe hypercalcemia Rule out complications of metastatic malignancy, versus possible multiple myeloma Consult oncology Consult urology Consult nephrology Prognosis guarded Give high flow IV fluids Pain control Cardizem transferred for controlling both tachycardia and hypertension As needed hydralazine IV Lasix to hopefully bring the calcium level down Check sedimentation rate Check serum protein electrophoresis Discussed with mid level provider The exam, history, and the medical decision-making described in the above note were completed with the assistance of the mid-level provider. I reviewed the findings presented. I attest that I had a [id number] encounter with the patient on the same day, and personally performed and documented my assessment and findings in the medical record. (Anthony Mejias MD) Physician Certification Order for Inpatient Services The services are ordered in accordance with Medicare regulations or non- Medicare payer requirements, as applicable. In the case of services not specified as inpatient-only, they are appropriately provided as inpatient services in accordance with the 2-midnight benchmark. days is the estimated time the patient will need to remain in the hospital, assuming treatment plan goals are met and no additional complications. (Geovanna Roy) 2 Midnight Certification Type: Admission for Inpatient Services Estimated LOS (days): 4 Post-Hospital Plan: Not yet determined (Anthony Mejias MD) Problem Qualifiers (1) Renal failure: Qualified Codes: N17.9 - Acute kidney failure, unspecified (2) Hydronephrosis: Qualified Codes: N13.2 - Hydronephrosis with renal and ureteral calculous obstruction (3) Breast cancer: Geovanna Roy Aug 11, 2017 18:22 Anthony Mjeias MD Aug 11, 2017 19:25
[2017-08-11] MEDS: FUROSEMIDE 20 MG/2 ML VIAL IV PUSH SCH (18:33)
[2017-08-11] MEDS: CYCLOBENZAPRINE HCL 10 MG TAB PO SCH (18:34)
[2017-08-11] MEDS: SODIUM CHLOR 0.9% 1000 ML INJ 1,000 ML IV SCH ×2 (18:34→20:32)
[2017-08-11] MEDS: HEPARIN SODIUM - SQ 10,000 UNITS/ML VIAL SQ SCH (20:37)
[2017-08-11] MEDS: DOCUSATE SODIUM 50 MG/SENNA 8.6 MG TAB PO SCH (20:37)
[2017-08-11] MEDS: SODIUM CHLORIDE 0.9% FLUSH 10 ML FLUSH IV FLUSH SCH (20:37)
[2017-08-12] VITALS (12 sets, daily range): BP systolic 120–190; BP diastolic 58–92; PULSE 64–110; RESP 16–19; TEMP 95.6–98.1; O2SAT 92–100
[2017-08-12] MEDS ORDERED: SODIUM CHLORID 0.9% 500 ML IV PRN (00:30)
[2017-08-12] MEDS ORDERED: LACTATED RINGER'S 1000 ML IV PRN (00:30)
[2017-08-12] MEDS ORDERED: POVIDONE IODINE 5% (ANTISEPSIS KIT) 4 APPLICATIONS EACH NARE PRN (00:30)
[2017-08-12] MEDS ORDERED: CHLORHEXIDINE GLUCONATE 2 % 1 PACK (2 CLOTHS) TOPICAL PRN (00:30)
[2017-08-12 07:41] LABS: AUTOMATED NEUTROPHIL # 8.6 TH/MM3 (1.8-7.7); BASOPHIL # 0.1 TH/MM3 (0-0.2); BASOPHIL % 0.5 % (0.0-2.0); EOSINOPHIL % 0.1 % (0.0-4.0); HEMATOCRIT 30.4 % (35.0-46.0); HEMO FLAGS DIFF FINAL; LYMPH % 6.1 % (9.0-44.0); LYMPHOCYTE # 0.6 TH/MM3 (1.0-4.8); MEAN CELL VOLUME 84.6 FL (80.0-100.0); MEAN CORPUSCULAR HEMOGLOBIN 28.2 PG (27.0-34.0); MEAN CORPUSCULAR HGB CONC 33.3 % (32.0-36.0); MONO % 10.7 % (0.0-8.0); NEUT % 82.6 % (16.0-70.0); PLATELET COUNT 295 TH/MM3 (150-450); RED BLOOD COUNT 3.59 MIL/MM3 (4.00-5.30); RED CELL DISTRIBUTION WIDTH 14.3 % (11.6-17.2); WHITE BLOOD COUNT 10.4 TH/MM3 (4.0-11.0)
[2017-08-12] MEDS: HEPARIN SODIUM - SQ 10,000 UNITS/ML VIAL SQ SCH ×2 (08:00→20:00)
[2017-08-12] MEDS: SODIUM CHLOR 0.9% 1000 ML INJ 1,000 ML IV SCH ×2 (08:10→13:53)
[2017-08-12] MEDS: SODIUM CHLORIDE 0.9% FLUSH 10 ML FLUSH IV FLUSH SCH ×2 (08:15→21:49)
[2017-08-12] MEDS: CYCLOBENZAPRINE HCL 10 MG TAB PO SCH ×3 (08:16→18:06)
[2017-08-12] MEDS: CITALOPRAM HYDROBROMIDE 20 MG TAB PO SCH (08:17)
[2017-08-12] MEDS: hydrALAZINE HCL 50 MG TAB PO PRN ×2 (08:18→23:51)
[2017-08-12] MEDS: PRAVASTATIN SOD 40 MG TAB PO SCH (08:19)
[2017-08-12] MEDS: FUROSEMIDE 20 MG/2 ML VIAL IV PUSH SCH ×2 (08:20→18:07)
[2017-08-12] MEDS: DOCUSATE SODIUM 50 MG/SENNA 8.6 MG TAB PO SCH ×2 (08:20→21:49)
[2017-08-12 08:22] LABS: TOTAL PROTEIN SPE 6.6 GM/DL (6.0-7.6)
--- NOTE | 2017-08-12 08:29 | PD.CONS ---
[facility] Service Urology Consult Requested By Primary Care Physician Kam Lara MD Diagnosis: (1) Hydronephrosis ICD Code: N13.30 - Unspecified hydronephrosis (2) Renal failure ICD Code: N19 - Unspecified kidney failure (3) UTI (lower urinary tract infection) ICD Code: N39.0 - UTI (lower urinary tract infection) History of Present Illness 76 yo female presented to ER with frequent falls over past 3 days. She also c/o lower abdominal pain, bilateral flank pain, left > right, nausea, general malaise for almost 1 month. During workup, she was found to have Creatinine 5.2. CT A/P without Contrast showed bilateral hydroureteronephrosis with questionable mass in bladder. She c/o urinary frequency, but denies urgency, hematuria, dysuria, fevers, chills. She also has lost about 8 lbs over the month and not much of an appetite. Denies h/o kidney stones but has occasional UTI. She has a h/o Breast Cancer. CT also showed liver lesion, sclerotic bone lesions c/w metastatic disease. Review of Systems Constitutional: COMPLAINS OF: Weight loss, Change in appetite, DENIES: Diaphoretic episodes, Fatigue, Fever, Weight gain, Chills, Dizziness, Night Sweats Endocrine: DENIES: Abnorml menstrual pattern, Heat/cold intolerance, Polydipsia , Polyuria, Polyphagia Eyes: DENIES: Blurred vision, Diplopia, Eye inflammation, Eye pain, Vision loss , Photosensitivity, Double Vision Ears, nose, mouth, throat: DENIES: Tinnitus, Hearing loss, Vertigo, Nasal discharge, Oral lesions, Throat pain, Hoarseness, Ear Pain, Running Nose, Epistaxis, Sinus Pain, Toothache, Odynophagia Respiratory: DENIES: Apneas, Cough, Snoring, Wheezing, Hemoptysis, Sputum production, Shortness of breath Cardiovascular: DENIES: Chest pain, Palpitations, Syncope, Dyspnea on Exertion , PND, Lower Extremity Edema, Orthopnea, Claudication Gastrointestinal: COMPLAINS OF: Abdominal pain, Nausea, DENIES: Black stools, Bloody stools, Constipation, Diarrhea, Vomiting, Difficulty Swallowing, Anorexia Genitourinary: DENIES: Abnormal vaginal bleeding, Dysmenorrhea, Dyspareunia, Sexual dysfunction, Urinary frequency, Urinary incontinence, Urgency, Hematuria , Dysuria, Nocturia, Vaginal discharge Musculoskeletal: DENIES: Joint pain, Muscle aches, Stiffness, Joint Swelling, Back pain, Neck pain Integumentary: DENIES: Abnormal pigmentation, Pruritus, Rash, Nail changes, Breast masses, Breast skin changes, Nipple discharge Hematologic/lymphatic: DENIES: Bruising, Lymphadenopathy Immunologic/allergic: DENIES: Eczema, Urticaria Neurologic: DENIES: Abnormal gait, Headache, Localized weakness, Paresthesias, Seizures, Speech Problems, Tremor, Poor Balance Psychiatric: DENIES: Anxiety, Confusion, Mood changes, Depression, Hallucinations, Agitation, Suicidal Ideation, Homicidal Ideation, Delusions Except as stated in HPI: all other systems reviewed are Neg Past Family Social History Past Medical History HTN, hyperlipidemia, back pain, Breast Cancer Past Surgical History Right Mastectomy Allergies: Coded Allergies: codeine (Unverified Allergy, Severe, palpitations, 08/11/17) Active Ordered Medications Current Medications Medications (Trade) Dose Ordered Sig/Joshua Route Start Time Stop Time Status Last Admin (CeleXA) 10 mg DAILY PO 08/12/17 09:00 (Flexeril) 10 mg TID PO 08/11/17 18:00 08/11/17 18:34 (Pravachol) 40 mg DAILY PO 08/12/17 09:00 Sodium Chloride 1,000 ml @ 150 mls/hr Q6H40M IV 08/11/17 17:23 08/11/17 20:32 (NS Flush) 2 ml UNSCH PRN IV FLUSH 08/11/17 17:30 (NS Flush) 2 ml BID IV FLUSH 08/11/17 21:00 08/11/17 20:37 (Heparin Inj) 5,000 units Q12H SQ 08/11/17 20:00 08/11/17 20:37 (Narcan Inj) 0.4 mg UNSCH PRN IV PUSH 08/11/17 17:30 (Gisselle-Colace) 1 tab BID PO 08/11/17 21:00 08/11/17 20:37 (Milk Of Magnesia Liq) 30 ml Q12H PRN PO 08/11/17 17:30 (Senokot) 17.2 mg Q12H PRN PO 08/11/17 17:30 (Dulcolax Supp) 10 mg DAILY PRN RECTAL 08/11/17 17:30 (Lactulose Liq) 30 ml DAILY PRN PO 08/11/17 17:30 (Lasix Inj) 20 mg BID@09,18 IV PUSH 08/11/17 18:00 08/11/17 18:33 (Apresoline) 50 mg Q4HR PRN PO 08/11/17 17:30 Diltiazem HCl 125 mg/Sodium Chloride 125 ml @ 5 mls/hr TITRATE PRN IV 08/11/17 18:00 Patient Own Medication PT OWN MED: (Letroz... DAILY PO 08/12/17 09:00 Future Hold (Morphine Inj) 3 mg Q3H PRN IV PUSH 08/11/17 18:00 Lactated Ringer's 1,000 ml @ 30 mls/hr Q24H PRN IV 08/12/17 00:30 08/15/17 00:29 Sodium Chloride 500 ml @ 30 mls/hr [id number] PRN IV 08/12/17 00:30 08/15/17 00:29 (Betadine 5% Antisepsis Kit) 1 applic CHARACTER ACTRESS PRN EACH NARE 08/12/17 00:30 08/15/17 00:29 (Chlorhexidine 2% Cloth) 3 pack CHARACTER ACTRESS PRN TOPICAL 08/12/17 00:30 08/15/17 00:29 Family History Denies urolithiasis, malignancies Social History Denies tobacco, EtOH, illicit drugs. Physical Exam Vital Signs Date Time Temp Pulse Resp B/P (MAP) Pulse Ox O2 Delivery O2 Flow Rate FiO2 08/12/17 04:59 106 08/12/17 04:32 96.0 110 18 166/90 (115) 96 08/12/17 00:21 96.3 102 17 146/84 (104) 96 08/11/17 20:17 97.6 107 17 184/86 (118) 94 08/11/17 19:03 08/11/17 14:42 18 96 Room Air 08/11/17 14:30 114 24 168/88 (114) 98 Room Air 08/11/17 13:44 106 18 189/96 (127) 99 Room Air 08/11/17 12:50 112 18 197/109 (138) 96 Room Air 08/11/17 12:46 109 18 Room Air 08/11/17 12:38 119 204/106 (138) 08/11/17 12:29 08/11/17 12:16 99.0 120 20 239/116 (157) 95 Room Air Physical Exam GENERAL: This is a thin, well-developed patient, in no apparent distress. SKIN: No rashes, ecchymoses or lesions. Cool and dry. HEAD: Atraumatic. Normocephalic. No temporal or scalp tenderness. EYES: Pupils equal round and reactive. Extraocular motions intact. No scleral icterus. No injection or drainage. ENT: Nose without bleeding, purulent drainage or septal hematoma. Throat without erythema, tonsillar hypertrophy or exudate. Uvula midline. Airway patent. NECK: Trachea midline. No JVD or lymphadenopathy. Supple, nontender, no meningeal signs. CARDIOVASCULAR: Regular rate and rhythm without murmurs, gallops, or rubs. RESPIRATORY: Clear to auscultation. Breath sounds equal bilaterally. No wheezes , rales, or rhonchi. GASTROINTESTINAL: Abdomen soft, non-tender, nondistended. No hepato-splenomegaly , or palpable masses. No guarding. GENITOURINARY: No CVA tenderness. Pelvic Exam deferred. MUSCULOSKELETAL: Extremities without clubbing, cyanosis, or edema. No joint tenderness, effusion, or edema noted. No calf tenderness. Negative Homans sign bilaterally. NEUROLOGICAL: Awake and alert. Cranial nerves II through XII intact. Motor and sensory grossly within normal limits. Five out of 5 muscle strength in all muscle groups. Normal speech. Lab results reviewed: Yes Laboratory Tests Test 08/11/17 12:58 08/11/17 17:15 08/12/17 06:57 White Blood Count 10.8 10.4 Red Blood Count 3.97 3.59 Hemoglobin 11.2 10.1 Hematocrit 33.7 30.4 Mean Corpuscular Volume 84.9 84.6 Mean Corpuscular Hemoglobin 28.2 28.2 Mean Corpuscular Hemoglobin Concent 33.2 33.3 Red Cell Distribution Width 14.3 14.3 Platelet Count 342 295 Mean Platelet Volume 9.4 9.1 Neutrophils (%) (Auto) 80.1 82.6 Lymphocytes (%) (Auto) 8.6 6.1 Monocytes (%) (Auto) 9.8 10.7 Eosinophils (%) (Auto) 0.6 0.1 Basophils (%) (Auto) 0.9 0.5 Neutrophils # (Auto) 8.6 8.6 Lymphocytes # (Auto) 0.9 0.6 Monocytes # (Auto) 1.1 1.1 Eosinophils # (Auto) 0.1 0.0 Basophils # (Auto) 0.1 0.1 CBC Comment DIFF FINAL DIFF FINAL Differential Comment Erythrocyte Sedimentation Rate 44 Prothrombin Time 11.0 Prothromb Time International Ratio 1.0 Activated Partial Thromboplast Time 22.0 Blood Urea Nitrogen 56 Creatinine 5.20 Random Glucose 110 Total Protein 8.2 Albumin 3.6 Calcium Level 15.5 Alkaline Phosphatase 76 Aspartate Amino Transf (AST/SGOT) 22 Alanine Aminotransferase (ALT/SGPT) 19 Total Bilirubin 0.3 Sodium Level 133 Potassium Level 4.5 Chloride Level 97 Carbon Dioxide Level 27.8 Anion Gap 8 Estimat Glomerular Filtration Rate 8 Uric Acid 7.6 Protein Corrected Calcium 14.6 Total Creatine Kinase 59 Troponin I 0.03 Urine Color STRAW Urine Turbidity SLIGHT Urine pH 6.5 Urine Specific [place] 1.010 Urine Protein 100 Urine Glucose (UA) NEG Urine Ketones NEG Urine Occult Blood TRACE Urine Nitrite NEG Urine Bilirubin NEGATIVE Urine Urobilinogen 0.2 Urine Leukocyte Esterase MOD Urine WBC 0-2 Urine Squamous Epithelial Cells 0-5 Microscopic Urinalysis Comment CATH-CULT NOT IND Result Diagram: 08/12/17 0657 08/11/17 1258 Personally reviewed images: Yes (Bilateral hydroureteronephrosis with possible bladder mass. ) Imaging Last Impressions Abdomen/Pelvis CT 08/11/17 1510 Signed Impressions: Service Date/Time: Friday, August 11, 2017 15:39 - CONCLUSION: 1. Multiple new ill-defined low-attenuation lesions in the liver characteristic of metastatic disease. There is new ascitic fluid as well. 2. Multiple subtle scattered lytic osseous lesions most characteristic of metastatic disease. 3. The uterus is more prominent than on the prior study with ill-defined masslike areas along the posterior aspect. The uterus is not well defined from the surrounding bowel secondary to lack of contrast. 4. Bilateral moderate to severe hydronephrosis. There is dilatation of both ureters. 5. Bladder wall thickening involving the posterior and superior aspects of the bladder which is new from the prior study. This is nonspecific but of concern for possible tumor given the bilateral hydronephrosis. Marshal Ayala MD Head CT 9/23/17 1312 Signed Impressions: Service Date/Time: Friday, August 11, 2017 15:32 - CONCLUSION: Negative trauma CT Marshal Ayala MD Chest X-Ray 08/11/17 1312 Signed Impressions: Service Date/Time: Friday, August 11, 2017 13:15 - CONCLUSION: No acute cardiopulmonary abnormality is identified. Nelson Dutta MD Assessment and Plan Problem List: (1) Hydronephrosis ICD Code: N13.30 - Unspecified hydronephrosis Status: Acute (2) Renal failure ICD Code: N19 - Unspecified kidney failure Status: Acute Assessment and Plan Keep NPO To OR this morning for cystoscopy, bilateral retrograde pyelogram, bilateral ureteral stent insertion. I discussed the risks, benefits, alternatives of the procedure with her, including pain, bleeding, infection, anesthesia risks, inability to insert stents, need for nephrostomy tubes, among tohers. She understood these risks. All questions were answered. Informed consent was obtained. Problem Qualifiers (1) Hydronephrosis: Qualified Codes: N13.2 - Hydronephrosis with renal and ureteral calculous obstruction (2) Renal failure: Qualified Codes: N17.9 - Acute kidney failure, unspecified Rock Herring MD Aug 12, 2017 08:29
[2017-08-12 08:49] LABS: BICARBONATE 28.6 MEQ/L (21.0-32.0); POTASSIUM 4.2 MEQ/L (3.5-5.1)
[2017-08-12] MEDS ORDERED: LETROZOLE 2.5 MG PO SCH (09:00)
[2017-08-12] MEDS ORDERED: LETROZOLE PO SCH (09:00)
[2017-08-12] MEDS ORDERED: ACETAMINOPHEN 1000 MG/100 ML 100 ML IV ONE (09:07)
[2017-08-12] MEDS ORDERED: ceFAZolin INJ 1,000 MG VIAL ONE (09:14)
[2017-08-12] MEDS ORDERED: DILTIAZEM HCL 25 MG/5 ML VIAL ONE (09:14)
[2017-08-12 09:49] LABS: CALCIUM-PROTEIN CORRECTED 15.2 MG/DL (8.5-10.1)
--- NOTE | 2017-08-12 10:05 | PD.OP ---
Operative Report Date of Surgery: Aug 12, 2017 Preoperative Diagnosis: 1. Bilateral Hydronephrosis 2. ARF Postoperative Diagnosis: same Procedure: cystoscopy, bilateral retrograde pyelogram, bilateral ureteral stent insertion Surgeon: Rock Herring Batch Or Continuous Still Operator(s): N/A Operation and Findings: Bilateral Hydronephrosis secondary to extrinsic compression, likely from Uterus Bladder appeared chronically inflamed, trigone was distorted but no obvious mass in bladder. Stents good for up to 3 months. Monitor for post obstructive diuresis Rock Herring MD Aug 12, 2017 10:05
[2017-08-12] MEDS ORDERED: DO NOT ADM ANY ANTICOAGULANT DRUGS PRN (10:20)
--- NOTE | 2017-08-12 11:03 | HHI.PR ---
Subjective Subjective Remarks surgery this am (Geovanna Roy) Vitals/Results Intake & Output 08/12/17 08/12/17 08/13/17 15:00 23:00 07:00 Intake Total 700 ml Output Total 0 ml Balance 700 ml Other 700 ml Estimated Blood Loss 0 ml Vital Signs Vital Signs Date Time Temp Pulse Resp B/P (MAP) Pulse Ox O2 Delivery O2 Flow Rate FiO2 08/12/17 10:58 97.6 08/12/17 10:45 101 18 154/77 (102) 97 Nasal Cannula 3 08/12/17 10:20 96.0 103 18 168/85 (112) 97 Nasal Cannula 3 08/12/17 10:20 96.0 08/12/17 08:00 97.2 96 19 190/91 (124) 92 08/12/17 04:59 106 08/12/17 04:32 96.0 110 18 166/90 (115) 96 08/12/17 00:21 96.3 102 17 146/84 (104) 96 08/11/17 20:17 97.6 107 17 184/86 (118) 94 08/11/17 19:03 08/11/17 14:42 18 96 Room Air 08/11/17 14:30 114 24 168/88 (114) 98 Room Air 08/11/17 13:44 106 18 189/96 (127) 99 Room Air 08/11/17 12:50 112 18 197/109 (138) 96 Room Air 08/11/17 12:46 109 18 Room Air 08/11/17 12:38 119 204/106 (138) 08/11/17 12:29 08/11/17 12:16 99.0 120 20 239/116 (157) 95 Room Air (Geovanna Roy) CBC/BMP: 08/12/17 0657 08/12/17 0657 Lab Results Laboratory Tests Test 08/11/17 12:58 08/11/17 17:15 08/12/17 06:57 White Blood Count 10.8 TH/MM3 10.4 TH/MM3 Red Blood Count 3.97 MIL/MM3 3.59 MIL/MM3 Hemoglobin 11.2 GM/DL 10.1 GM/DL Hematocrit 33.7 % 30.4 % Mean Corpuscular Volume 84.9 FL 84.6 FL Mean Corpuscular Hemoglobin 28.2 PG 28.2 PG Mean Corpuscular Hemoglobin Concent 33.2 % 33.3 % Red Cell Distribution Width 14.3 % 14.3 % Platelet Count 342 TH/MM3 295 TH/MM3 Mean Platelet Volume 9.4 FL 9.1 FL Neutrophils (%) (Auto) 80.1 % 82.6 % Lymphocytes (%) (Auto) 8.6 % 6.1 % Monocytes (%) (Auto) 9.8 % 10.7 % Eosinophils (%) (Auto) 0.6 % 0.1 % Basophils (%) (Auto) 0.9 % 0.5 % Neutrophils # (Auto) 8.6 TH/MM3 8.6 TH/MM3 Lymphocytes # (Auto) 0.9 TH/MM3 0.6 TH/MM3 Monocytes # (Auto) 1.1 TH/MM3 1.1 TH/MM3 Eosinophils # (Auto) 0.1 TH/MM3 0.0 TH/MM3 Basophils # (Auto) 0.1 TH/MM3 0.1 TH/MM3 CBC Comment DIFF FINAL DIFF FINAL Differential Comment Erythrocyte Sedimentation Rate 44 mm/hr Prothrombin Time 11.0 SEC Prothromb Time International Ratio 1.0 RATIO Activated Partial Thromboplast Time 22.0 SEC Blood Urea Nitrogen 56 MG/DL 60 MG/DL Creatinine 5.20 MG/DL 5.42 MG/DL Random Glucose 110 MG/DL 100 MG/DL Total Protein 8.2 GM/DL 7.0 GM/DL Albumin 3.6 GM/DL Calcium Level 15.5 MG/DL 15.0 MG/DL Alkaline Phosphatase 76 U/L Aspartate Amino Transf (AST/SGOT) 22 U/L Alanine Aminotransferase (ALT/SGPT) 19 U/L Total Bilirubin 0.3 MG/DL Sodium Level 133 MEQ/L 136 MEQ/L Potassium Level 4.5 MEQ/L 4.2 MEQ/L Chloride Level 97 MEQ/L 99 MEQ/L Carbon Dioxide Level 27.8 MEQ/L 28.6 MEQ/L Anion Gap 8 MEQ/L 8 MEQ/L Estimat Glomerular Filtration Rate 8 ML/MIN 8 ML/MIN Uric Acid 7.6 MG/DL Protein Corrected Calcium 14.6 MG/DL 15.2 MG/DL Total Creatine Kinase 59 U/L Troponin I 0.03 NG/ML Urine Color STRAW Urine Turbidity SLIGHT Urine pH 6.5 Urine Specific [place] 1.010 Urine Protein 100 mg/dL Urine Glucose (UA) NEG mg/dL Urine Ketones NEG mg/dL Urine Occult Blood TRACE Urine Nitrite NEG Urine Bilirubin NEGATIVE Urine Urobilinogen 0.2 MG/DL Urine Leukocyte Esterase MOD Urine WBC 0-2 /hpf Urine Squamous Epithelial Cells 0-5 /hpf Microscopic Urinalysis Comment CATH-CULT NOT IND Imaging Remarks Last Impressions Abdomen/Pelvis CT 08/11/17 1510 Signed Impressions: Service Date/Time: Friday, August 11, 2017 15:39 - CONCLUSION: 1. Multiple new ill-defined low-attenuation lesions in the liver characteristic of metastatic disease. There is new ascitic fluid as well. 2. Multiple subtle scattered lytic osseous lesions most characteristic of metastatic disease. 3. The uterus is more prominent than on the prior study with ill-defined masslike areas along the posterior aspect. The uterus is not well defined from the surrounding bowel secondary to lack of contrast. 4. Bilateral moderate to severe hydronephrosis. There is dilatation of both ureters. 5. Bladder wall thickening involving the posterior and superior aspects of the bladder which is new from the prior study. This is nonspecific but of concern for possible tumor given the bilateral hydronephrosis. Marshal Ayala MD Head CT 08/11/17 1312 Signed Impressions: Service Date/Time: Friday, August 11, 2017 15:32 - CONCLUSION: Negative trauma CT Marshal Ayala MD Chest X-Ray 08/11/17 1312 Signed Impressions: Service Date/Time: Friday, August 11, 2017 13:15 - CONCLUSION: No acute cardiopulmonary abnormality is identified. Nelson Dutta MD Current Medications Administered Medications Medications (Trade) Dose Ordered Sig/Joshua Route PRN Reason Start Time Stop Time Status Last Admin Dose Admin Citalopram Hydrobromide (CeleXA) 10 mg DAILY PO 08/12/17 09:00 08/12/17 08:17 Cyclobenzaprine HCl (Flexeril) 10 mg TID PO 08/11/17 18:00 08/12/17 08:16 Pravastatin Sodium (Pravachol) 40 mg DAILY PO 08/12/17 09:00 08/12/17 08:19 Sodium Chloride 1,000 ml @ 150 mls/hr Q6H40M IV 08/11/17 17:23 08/12/17 08:10 Sodium Chloride (NS Flush) 2 ml BID IV FLUSH 08/11/17 21:00 08/12/17 08:15 Heparin Sodium (Porcine) (Heparin Inj) 5,000 units Q12H SQ 08/11/17 20:00 08/11/17 20:37 Senna/Docusate Sodium (Gisselle-Colace) 1 tab BID PO 08/11/17 21:00 08/11/17 20:37 Furosemide (Lasix Inj) 20 mg BID@,18 IV PUSH 08/11/17 18:00 08/12/17 08:20 Hydralazine HCl (Apresoline) 50 mg Q4HR PRN PO SBP>160, DBP>90 08/11/17 17:30 08/12/17 08:18 (Geovanna Roy) Assessment/Plan Problem List: (1) Hydronephrosis ICD Codes: N13.30 - Unspecified hydronephrosis Status: Acute (2) Renal failure ICD Codes: N19 - Unspecified kidney failure Status: Acute (3) UTI (lower urinary tract infection) ICD Codes: N39.0 - UTI (lower urinary tract infection) Status: Acute Assessment/Plan Abdominal pain, left and right lower quadrant, CT scan noted with possible metastasis, liver lesions, hydronephrosis bilateral, hypercalcemia, hematology consult for their expert opinion and plan a care Vital signs monitored every 4hrs, labs to be drawn in the morning, consider pain management if needed Monitor bowel regimen, states normal BM this a.m. Hydronephrosis with renal and ureteral calculus obstruction, nephrology consult , assist with plan of care Acute kidney failure, , monitor vital signs, appreciate urology input OR this am, cystoscopy, bilateral retrograde pyelogram, bilateral ureteral stent insertion. Bilateral Hydronephrosis compression likely from Uterus Bladder appeared chronically inflamed, but no obvious mass in bladder. Stents good for up to 3 months. Monitor for post obstructive diuresis Hypertension uncontrolled, medical management reconcile medications, will add hydralazine IV PO for plan of 160/90 Hypercalcemia severe, probable secondary to #1 Tachycardia, without history of heart disease, possible secondary to uncontrolled hypertension, fall, stressors, ECG monitoring and or continue telemetry Patient does have positive trace of pedal edema bilateral, Lasix 20 g IV twice a day, I&O, urinary catheter ordered in the emergency room, possible urethral calculus obstruction DVT prophylaxis heparin PUD prophylaxis, Pepcid D/W Dr. Mejias, seen on his behalf (Geovanna Roy) Assessment/Plan seen, examined by myself, Dr Mejias, today Discussed with patient Status post cystoscopy, bilateral retrograde pyelogram, bilateral ureteral stent insertion 08/12/17 Discussed with nurse Discussed with oncologist Due to have pamidronate given tomorrow This is not given today because of the poor renal function Continue IV fluids Workup in progress to rule out metastatic malignancy Discussed with mid level provider The exam, history, and the medical decision-making described in the above note were completed with the assistance of the mid-level provider. I reviewed the findings presented. I attest that I had a [id number] encounter with the patient on the same day, and personally performed and documented my assessment and findings in the medical record. (Anthony Mejias MD) Problem Qualifiers (1) Hydronephrosis: Qualified Codes: N13.2 - Hydronephrosis with renal and ureteral calculous obstruction (2) Renal failure: Qualified Codes: N17.9 - Acute kidney failure, unspecified Geovanna Roy Aug 12, 2017 11:03 Anthony Mejias MD Aug 12, 2017 18:03
[2017-08-12] MEDS ORDERED: LIDOCAINE HCL 1% PF 5 ML AMPULE OTHER ONE (12:00)
[2017-08-12] MEDS ORDERED: MIDAZOLAM HCL 2 MG/2 ML VIAL IV ONE (12:00)
[2017-08-12] MEDS ORDERED: ONDANSETRON HCL 4 MG/2 ML VIAL IV PUSH ONE (12:00)
[2017-08-12] MEDS ORDERED: SUCCINYLCHOLINE CHLORIDE 100 MG/5 ML SYRINGE IV PUSH ONE (12:00)
[2017-08-12] MEDS ORDERED: hydrALAZINE HCL 20 MG/ML VIAL IV ONE (12:00)
[2017-08-12] MEDS ORDERED: ceFAZolin INJ 1,000 MG VIAL IV ONE (12:00)
[2017-08-12] MEDS ORDERED: PROPOFOL 200 MG/20 ML AMP IV ONE (12:00)
[2017-08-12] MEDS ORDERED: SODIUM CHLORIDE 0.9% 20 ML VIAL IV ONE (12:00)
--- NOTE | 2017-08-12 13:37 | EKG ---
Date Performed: 08/11/2017 Time Performed: 13:50:30 PTAGE: 76 years EKG: SINUS TACHYCARDIA POSSIBLE LEFT ATRIAL ENLARGEMENT RIGHT BUNDLE BRANCH BLOCK LEFT ANTERIOR FASCICULAR BLOCK ABNORMAL ECG PREVIOUS TRACING : 01/02/2017 08.49 Since previous tracing, no significant change. DOCTOR: Ricky Cardenas Interpretating Date/Time 08/12/2017 13:36:16
[2017-08-12] MEDS ORDERED: SODIUM CHLOR 0.9% 1000 ML INJ 1,000 ML IV ONE (14:30)
--- NOTE | 2017-08-12 14:44 | MB ---
cc: GEOVANNA ROY,HAYLIE Pickett M.D. DATE OF CONSULTATION: 08/12/[address] Geovanna Roy. CHIEF COMPLAINT Dr. Roy requested consultation on Mrs. Kwok with suspected metastatic disease due to new findings of liver lesions. HISTORY OF PRESENT ILLNESS Mrs. Kwok is a 76-year-old woman, previous patient of Dr. Korey Purdy. She had a high-risk breast cancer at the time of her diagnosis. She presented with locally advanced stage III, T2N2M0 right breast cancer, invasive ductal carcinoma which was estrogen receptor positive 72%, progesterone receptor positive 57% HER2/arslan negative. She received adjuvant systemic chemotherapy after a right mastectomy. She had dose dense AC plus ___ could only tolerate 7 out of 12 weeks of Taxol. She was placed on adjuvant hormonal therapy with Arimidex and switched to letrozole subsequently. She was last seen by Dr. Curiel on March 08, 2017. She was advised to continue on letrozole. She was pending bone mineral density. Her last bone mineral density from 2014 was normal. She saw Yancy Liu our nurse practitioner for followup. At the in May she was seeing Dr. Sorto for urinary frequency. Apparently she has seen Dr. Sorto for a long time. A stent was placed recently. Unfortunately she missed a follow-up appointment with Dr. Sorto. Clinical exam was negative for breast cancer. She had a fall at home. Her daughter's noted that she has not recovered completely since that event. She was brought in because she was feeling weak and tired. She had some dizziness, disorientation, unintentional weight loss. Her daughters thought that she was lethargic. She had some rib pain, nausea and vomiting and diarrhea. Laboratory evaluation was concerning for normocytic anemia, calcium of 15, BUN of 56, creatinine 1.2. She has evidence of acute renal failure and hypercalcemia. Her previous calcium in October was normal. She was seen by urologist Dr. Herring. She had hydronephrosis and renal failure. Dr. Herring took her for a cystoscopy, bilateral retrograde pyelogram, bilateral ureteral stent insertion. She was seen after the procedure feeling weak and tired but accompanied by her daughter. Her urine is blood tinged. She still feels mildly nauseous. The rest of her review of systems is negative. We discussed the CT scan results. CT scan from August 11, 2017 shows multiple new ill-defined low-attenuation lesions in the liver characteristic of metastatic disease. She has multiple subtle scattered lytic osseous lesions. Seen on the CT is a moderate to severe hydronephrosis. There is dilatation both ureters, the bladder wall thickening involving the posterior and superior aspect of the bladder is new. Possible tumor is considered. Hematology/Oncology is consulted for a history of breast cancer and new findings of liver lesion and possible bladder pathology. PAST MEDICAL HISTORY 1. History of locally advanced right breast cancer status post mastectomy. 2. Urinary frequency. 3. Bilateral hydronephrosis. 4. Acute renal failure. 5. Hyperlipidemia. 6. Hypertension. 7. Spinal stenosis. 8. Macular degeneration. 9. Degenerative disk disease. 10. Chronic back pain. PAST SURGICAL HISTORY 1. Hzkawi-[id number]-[id number] placement. 2. Mastectomy right breast. 3. Right axillary dissection. SOCIAL HISTORY , lives with her . Denies any tobacco, alcohol or illicit drug use. ALLERGIES CODEINE. MEDICATION Medications from home: 1. Flexeril. 2. Pravastatin. 3. Losartan. 4. Hydrocodone. 5. Letrozole. 6. Paxil. FAMILY HISTORY Daughter has autoimmune condition. Son has autoimmune condition. Mother is at age 44 after fall and skull fracture. Father is diseased at age 68 with diabetes and first brother has prostate cancer. One daughter has lupus. PHYSICAL EXAMINATION VITAL SIGNS: Temperature 97.6, heart rate 102, respiratory rate 17, blood pressure 160/78, saturation 97%. GENERAL: Mrs. Kwok is a well-developed, well-nourished woman who looks anxious. She has some pallor. HEENT: Pupils are round, reactive to light and accommodation. Oropharynx is clear. NECK: Neck is supple. LUNGS: Lungs are clear. CARDIOVASCULAR: Exam reveals some mild tachycardia. ABDOMEN: Abdomen is benign. No organomegaly. EXTREMITIES: Lower extremities with no edema. BREASTS: No supraclavicular, intraclavicular, or axillary adenopathy. The left breast is negative and no mass, no skin changes. The right chest wall mastectomy site is clear, there is no evidence of local recurrence. ASSESSMENT/PLAN Mrs. Kwok is a 76-year-old woman who presented with locally advanced breast cancer diagnosed in 2011. She is almost completing 5 years of adjuvant hormonal therapy for an ER positive, [place] positive, HER2/arslan negative breast cancer. I had a lengthy discussion with Mrs. Kwok and her daughter present at the consultation, the concern for recurrent or metastatic breast cancer. We discussed the risk and benefit of a CT-guided biopsy to determine the nature of the metastatic lesions in the liver. Further recommendations depending on the results of the biopsy. Her acute problems related to her hydronephrosis, acute renal failure. She has hypercalcemia which is the etiology of the nausea. We will obtain MRI of the brain to rule out VETERINARY PARASITOLOGIST metastatic disease. There is a question whether there is a second primary lesion in the bladder. CT scan suggests there is. We will await final report from Dr. Herring' cystoscopic evaluation and biopsy. Stents were placed to alleviate the hydronephrosis. I am hopeful that her nausea would improve. It is difficult to offer bisphosphonate therapy in light of the acute renal failure. We will see that her renal function improves before using the ____. Some nephrologists and personal discussion suggests that it would be alright to use the bisphosphonate therapy even so. For the next 24 hours will hydrate judiciously and see if the diuresis and correction of the hydronephrosis would allow her calcium to go down. Ultimately, she will need followup on outpatient basis and staging evaluation. Pending on the results of the biopsy, recommendations for treatment will be coordinated by Dr. Curiel who has taken over her care after Dr. Purdy. Dr. Curiel will return to see her tomorrow. Haylie Leal MD RAD/TLL /12:44 PM /1:54 PM
[2017-08-12] MEDS ORDERED: ACETAMINOPHEN 325 MG TAB PO PRN (16:00)
--- NOTE | 2017-08-12 16:05 | MB ---
cc: MADIE VELAZQUEZ MD DATE OF CONSULTATION: 08/12/2017. REASON FOR CONSULTATION: Elevated BUN and creatinine for evaluation. HISTORY OF PRESENT ILLNESS: This is a 76-year-old female with past medical history of hypertension, hyperlipidemia, spinal stenosis, macular degeneration, and breast cancer who came to the hospital with complaint of recurrent falls and generalized weakness. I was called to see the patient because of elevated BUN and creatinine. The patient just came from the OR. She was seen by urology and was found to have hydronephrosis with urinary calculus and she underwent cystoscopy, bilateral retrograde pyelogram and bilateral ureteral stent placement. The patient now has bloody urine. She denies any previous history of renal disease. She also found to have very high calcium level of 15.5. She was seen by the oncologist. The patient at home did not have any decreased urine output or dysuria or hematuria. She has been losing weight. She has lost about 8 pounds over the last month. Her appetite has decreased. She is feeling weak and tired and has been feeling dizzy. She denies taking any nonsteroidal anti-inflammatory drugs. PAST MEDICAL HISTORY: 1. Hypertension. 2. Hyperlipidemia. 3. Breast cancer. 4. Chronic back pain. 5. Increased urinary frequency. 6. History of chemotherapy. PAST SURGICAL HISTORY: Mastectomy of the right breast. REVIEW OF SYSTEMS: The patient has weakness, feeling tired and decreased appetite. She has lost weight as mentioned above. There is a feeling of dizziness and generalized weakness. She denies any nausea or vomiting. There is no history of diarrhea. No shortness of breath or chest pain but the patient has increased frequency but there was no dysuria or hematuria. Denies taking any nonsteroidal anti-inflammatory drugs. SOCIAL HISTORY: The patient is and lives with her . There is no history of smoking or alcoholism. FAMILY HISTORY: Family history noncontributory. ALLERGIES: CODEINE. MEDICATIONS: Currently she is on: 1. IV fluids with normal saline at 42 mL/hour. 2. Celexa 10 milligrams once a day. 3. Pravachol 40 milligrams once a day. 4. Furosemide 20 milligrams IV twice a day. 5. Gisselle-Colace one tablet twice a day. 6. she is getting 30 milligrams. 7. Heparin 5000 units subcutaneous q. 12 hours. 8. Flexeril 10 milligrams three times a day. 9. Narcan PRN. PHYSICAL EXAMINATION: GENERAL: On examination, the patient is awake and alert and she is not in acute distress. VITAL SIGNS: Her blood pressure is 173/84, temperature 96.2, oxygen saturation is 97% to 98%. Her blood pressure has been on the higher side and the highest recorded on admission was 239/116. Oxygen saturation on two liters nasal cannula was 97% to 98%. HEAD, EYES, EARS, NOSE, THROAT: The pupils are mid-constricted. Nonicteric sclearae. Conjunctivae are pale. NECK: The neck is supple. JVD is not elevated. LUNGS: The patient has bilateral decreased air entry with occasional wheezing. HEART: S1 and S2 regular rhythm. ABDOMEN: Abdomen distended, soft and lax. There is no definite tenderness. Bowel sounds positive. EXTREMITIES: There is no pedal edema. INVESTIGATIONS: White blood cell count is 10.4, hemoglobin 10.1, platelet count of 295,000, neutrophils 82.6%. Sodium 133, potassium 4.2, chloride 99, bicarbonate 28.6, BUN 60, creatinine 5.4, calcium is 15.0 with corrected calcium of 15.2, AST and ALT are normal. Total protein is 8.2 with albumin of 3.6. INR is 1.0. Urinalysis showing protein of 100. IMAGING STUDIES: The patient had a CT scan of the abdomen and pelvis done showing multiple new ill-defined low attenuation lesions in the liver characteristic of metastatic disease. New ascitic fluid as well. Multiple scattered lytic osseous lesions characteristic of metastatic disease. Bilateral mild to moderate to severe hydronephrosis with bladder wall thickening. ASSESSMENT: 1. Acute kidney injury. 2. Hypercalcemia. 3. Possible metastatic disease with history of weight loss. 4. Obstructive uropathy. 5. Anemia. The patient was seen by oncology and she is getting Calcitonin for high calcium level. There is a possibility of metastatic breast cancer and the marker has been sent by the oncologist. I agree with continuing IV fluids. She is also on Lasix to promote more calcium excretion. Follow the urine output and the BUN and creatinine. Thank you for the consultation and I will follow the patient while she is in the hospital. MD JEANNINE Rincon/FRANCISCO JAVIER /3:02 PM /3:52 PM [facility]ITALSantos
[2017-08-12] MEDS: ACETAMINOPHEN/HYDROcodone 325 MG/5 MG TAB PO PRN (18:05)
[2017-08-12] MEDS: DILTIAZEM HCL 30 MG TAB PO SCH ×2 (18:34→21:49)
--- NOTE | 2017-08-12 18:44 | MP ---
cc: ZARI LO MD DATE OF SURGERY 08/12/2017 PREOPERATIVE DIAGNOSES 1. Bilateral hydroureter nephrosis. 2. Acute renal failure. POSTOPERATIVE DIAGNOSES 1. Bilateral hydroureter nephrosis. 2. Acute renal failure. PROCEDURE PERFORMED 1. Cystourethroscopy. 2. Bilateral retrograde pyelogram. 3. Insertion of bilateral ureteral stents. SURGEON Nevaeh. ANESTHESIA General COMPLICATIONS None. PREOPERATIVE ANTIBIOTICS Ancef one gram IV. DRAINS 1. Bilateral 6 x 24 double-J ureteral stents, long-term. 2. ____ Israeli Cardona catheter gravity drainage. SPECIMEN None. BLOOD LOSS Minimal. DISPOSITION To recovery. INDICATIONS The patient is a 76-year-old with a female history of breast cancer status post right mastectomy who presented to the ER last night with complaints of nausea and vomiting, lower abdominal pain and general malaise for several days. In the ER she had workup done in which found to have elevated creatinine of 5.2 and calcium of 15. CT abdomen and pelvis without contrast was performed which showed bilateral hydroureter nephrosis down to the bladder which appeared to be the result of her acute renal failure. She had a catheter placed at the time urology was consulted. Overnight she continued to have pain more so on her left side than right. This morning her creatinine despite having a Cardona catheter in place, elise up to 5.4 with her calcium continued to be at 15. Due to these findings the patient was then set up for emergent cystoscopy, bilateral retrograde and stent insertion. After risks, benefits and alternatives were explained to the patient, the patient elected to proceed. Informed consent was obtained. DETAILS OF THE PROCEDURE The patient was appropriately identified, brought back to the cystoscopy suite where she was laid supine on the cystoscopy table. A proper time-out was performed. Under the direction of anesthesiology the patient was then immediately induced under general anesthetic. Antibiotics in the form of Ancef 1 gram IV was given one hour prior to start of procedure. The patient then placed in dorsolithotomy position, prepped, draped in normal sterile surgical fashion. A rigid cystoscope was carefully passed into her bladder per urethra without any difficulty. Her bladder was carefully examined. It did appear to be chronically fine and the trigone was significantly distorted likely from extrinsic compression possibly from her uterus. There is no obvious bladder mass seen. Both orifices were identified and appeared to be on the posterior aspect of her trigone from the distortion. Starting on the left side I inserted a 5-Israeli ureteral catheter. A retrograde pyelogram was performed which showed a massively dilated ureter all the up to the left renal pelvis. No obvious filling defect was seen. At this time through the ureteral catheter I passed a wire up into the left kidney and the ureteral catheter was then removed. A 6 x 24 stent was then passed along the wire up into the left kidney without difficulty. Fluoroscopy confirmed proper position of the left ureteral stent. I then followed the trigone to the right side where I identified the ureteral orifice which appeared to be on the backside of this distortion of the trigone. The same 5-Israeli ureteral catheter was inserted inside her right ureteral orifice and a right retrograde pyelogram was performed which did meet some resistance about group home up her ureter in the mid ureter but did appear to be significantly dilated. Not much contrast was seen going into the right renal pelvis. I then passed a wire through the open ended ureteral catheter and again met some resistance at about the half way point up the ureter but then was able to bypass it into the right kidney. This was confirmed by fluoroscopy. The ureteral catheter was then removed. A 6 x 24 double-J stent was then passed over the wire up into the right kidney. It did meet some significant resistance about two thirds up the ureter itself. At this point the wire was removed. Fluoroscopy confirmed the proper positioning of the right proximal portion of the stent in the lower pole. At this point the rigid cystoscope was removed. A 6-Israeli Cardona catheter was then placed to gravity drainage. This concluded the procedure. The patient was extubated and sent to recovery in stable condition. She will be transferred back to the floor for routine postoperative care. MD STUART Chi/BENNY /10:06 AM /6:17 PM
[2017-08-12] MEDS: METOPROLOL TARTRATE 25 MG TAB PO SCH (21:49)
[2017-08-13] VITALS (27 sets, daily range): BP systolic 152–174; BP diastolic 87–95; PULSE 62–98; RESP 18; TEMP 97.7–98.2; O2SAT 95–96
[2017-08-13] MEDS: ACETAMINOPHEN/HYDROcodone 325 MG/5 MG TAB PO PRN ×3 (01:46→21:57)
[2017-08-13] MEDS ORDERED: ONDANSETRON HCL 4 MG/2 ML VIAL IV PUSH PRN (05:45)
[2017-08-13] MEDS: HEPARIN SODIUM - SQ 10,000 UNITS/ML VIAL SQ SCH ×2 (07:41→21:50)
[2017-08-13 07:53] LABS: BICARBONATE 27.1 MEQ/L (21.0-32.0); POTASSIUM 3.6 MEQ/L (3.5-5.1)
[2017-08-13 08:10] LABS: CALCIUM-PROTEIN CORRECTED 13.1 MG/DL (8.5-10.1)
[2017-08-13] MEDS: FUROSEMIDE 20 MG/2 ML VIAL IV PUSH SCH ×2 (08:12→17:54)
[2017-08-13] MEDS: DILTIAZEM HCL 30 MG TAB PO SCH ×4 (08:12→21:50)
[2017-08-13] MEDS: DOCUSATE SODIUM 50 MG/SENNA 8.6 MG TAB PO SCH ×2 (08:12→21:50)
[2017-08-13] MEDS: CITALOPRAM HYDROBROMIDE 20 MG TAB PO SCH (08:12)
[2017-08-13] MEDS: CYCLOBENZAPRINE HCL 10 MG TAB PO SCH ×3 (08:13→17:54)
[2017-08-13] MEDS: SODIUM CHLORIDE 0.9% FLUSH 10 ML FLUSH IV FLUSH SCH ×2 (08:13→21:50)
[2017-08-13] MEDS: METOPROLOL TARTRATE 25 MG TAB PO SCH ×2 (08:13→21:50)
[2017-08-13] MEDS: PRAVASTATIN SOD 40 MG TAB PO SCH (08:13)
--- NOTE | 2017-08-13 08:42 | PD.ONC.PN ---
Subjective Subjective Remarks Afebrile overnight. Patient feeling nauseated. She had an episode of vomiting this morning. No abdominal pain. Feeling better. Objective Data Date Time Temp Pulse Resp B/P (MAP) Pulse Ox O2 Delivery O2 Flow Rate FiO2 08/13/17 05:00 98 08/13/17 04:00 92 08/13/17 03:00 89 08/13/17 03:00 97.8 94 18 159/87 (111) 96 08/13/17 02:00 86 08/13/17 01:00 94 08/13/17 00:00 88 08/12/17 23:00 97.7 89 18 148/88 (108) 96 08/12/17 23:00 88 08/12/17 22:00 90 08/12/17 21:00 98 08/12/17 20:00 98.1 100 18 169/87 (114) 97 08/12/17 20:00 102 08/12/17 19:46 98 08/12/17 16:00 95.6 98 19 186/92 (123) 100 08/12/17 12:00 96.2 102 18 173/84 (113) 98 08/12/17 11:00 97.6 102 17 160/78 (105) 97 Nasal Cannula 2 08/12/17 10:58 97.6 08/12/17 10:45 101 18 154/77 (102) 97 Nasal Cannula 3 08/12/17 10:20 96.0 103 18 168/85 (112) 97 Nasal Cannula 3 08/12/17 10:20 96.0 08/13/17 08/13/17 08/13/17 07:00 15:00 23:00 Intake Total 200 ml Output Total 2175 ml Balance -1975 ml Result Diagram: 08/12/17 0657 08/13/17 0500 Laboratory Results Laboratory Tests Test 08/13/17 05:00 Blood Urea Nitrogen 54 MG/DL Creatinine 4.39 MG/DL Random Glucose 99 MG/DL Total Protein 7.2 GM/DL Calcium Level 13.1 MG/DL Sodium Level 138 MEQ/L Potassium Level 3.6 MEQ/L Chloride Level 101 MEQ/L Carbon Dioxide Level 27.1 MEQ/L Anion Gap 10 MEQ/L Estimat Glomerular Filtration Rate 10 ML/MIN Protein Corrected Calcium 13.1 MG/DL Administered Medications Medications (Trade) Dose Ordered Sig/Joshua Route PRN Reason Start Time Stop Time Status Last Admin Dose Admin Citalopram Hydrobromide (CeleXA) 10 mg DAILY PO 08/12/17 09:00 08/13/17 08:12 Cyclobenzaprine HCl (Flexeril) 10 mg TID PO 08/11/17 18:00 08/13/17 08:13 Pravastatin Sodium (Pravachol) 40 mg DAILY PO 08/12/17 09:00 08/13/17 08:13 Sodium Chloride (NS Flush) 2 ml BID IV FLUSH 08/11/17 21:00 08/13/17 08:13 Heparin Sodium (Porcine) (Heparin Inj) 5,000 units Q12H SQ 08/11/17 20:00 08/13/17 07:41 Senna/Docusate Sodium (Gisselle-Colace) 1 tab BID PO 08/11/17 21:00 08/13/17 08:12 Furosemide (Lasix Inj) 20 mg BID@09,18 IV PUSH 08/11/17 18:00 08/13/17 08:12 Hydralazine HCl (Apresoline) 50 mg Q4HR PRN PO SBP>160, DBP>90 08/11/17 17:30 08/12/17 23:51 Morphine Sulfate (Morphine Inj) 3 mg Q3H PRN IV PUSH pain 3-10 08/11/17 18:00 08/12/17 23:51 Sodium Chloride 1,000 ml @ 42 mls/hr [id number] IV 08/12/17 13:00 08/12/17 13:53 Pamidronate Disodium 30 mg/ Sodium Chloride 500 ml @ 80 mls/hr ONCE ONCE IV 08/13/17 09:00 08/13/17 15:14 08/13/17 08:11 Acetaminophen/ Hydrocodone Bitart (Worth 5-325 Mg) 1 tab Q4H PRN PO PAIN SCALE 5 TO 10 08/12/17 16:00 08/13/17 01:46 Diltiazem HCl (Cardizem) 30 mg QID PO 08/12/17 18:15 08/13/17 08:12 Metoprolol Tartrate (Lopressor) 12.5 mg Q12HR PO 08/12/17 21:00 08/13/17 08:13 Ondansetron HCl (Zofran Inj) 4 mg Q4H PRN IV PUSH NAUSEA 08/13/17 05:45 08/13/17 07:37 Objective Remarks GENERAL: Frail elderly female supine in bed, resting. SKIN: Warm and dry. HEAD: Normocephalic. +dry lips EYES: No injection or drainage. NECK: Supple, trachea midline CARDIOVASCULAR: Regular rate and rhythm RESPIRATORY: anterior ingram clear. GASTROINTESTINAL: Abdomen soft, non-tender, nondistended. EXTREMITIES: No cyanosis NEUROLOGICAL: awake and alert, normal speech. Assessment/Plan Problem List: (1) Breast cancer ICD Codes: C50.919 - Breast cancer Status: Acute Plan: plan for biopsy of one of liver lesions when clinically able --had a high-risk breast cancer at the time of her diagnosis. --presented with locally advanced stage III, T2N2M0 right breast cancer, invasive ductal carcinoma which was estrogen receptor positive 72%, progesterone receptor positive 57% HER2/arslan negative. --received adjuvant systemic chemotherapy after a right mastectomy could only tolerate 7 out of 12 weeks of Taxol. placed on adjuvant hormonal therapy with Arimidex and switched to letrozole subsequently. --last seen by Dr. Curiel on March 08, 2017. She was advised to continue on letrozole. --CT abdomen, 08/11 shows multiple new ill-defined low-attenuation lesions in the liver characteristic of metastatic disease. has multiple subtle scattered lytic osseous lesions. (2) Hydronephrosis ICD Codes: N13.30 - Unspecified hydronephrosis Status: Acute Plan: --CT abdomen showed moderate to severe hydronephrosis. There is dilatation both ureters, the bladder wall thickening involving the posterior and superior aspect of the bladder is new. Possible tumor is considered. --cystoscopy on 08/12 showed no bladder mass. (3) Hypercalcemia ICD Codes: E83.52 - Hypercalcemia Plan: --receiving IVF --s/p pamidronate 08/13 (4) Renal failure ICD Codes: N19 - Unspecified kidney failure Status: Acute Assessment 76y/o female with h/o breast cancer, admitted with weakness and dizziness. Oncology consulted for suspected metastatic disease due to new findings of liver lesions. h/o locally advanced right breast cancer status post mastectomy. Urinary frequency. Bilateral hydronephrosis. Acute renal failure. Hypertension. Spinal stenosis. Macular degeneration. Degenerative disk disease. Chronic back pain Plan 1. continue IVF 2. will need biopsy of liver lesion once stable--will hold for today d/t vomiting. Attending Statement The exam, history, and the medical decision-making described in the above note were completed with the assistance of the mid-level provider. I reviewed and agree with the findings presented. I attest that I had a [id number] encounter with the patient on the same day, and personally performed and documented my assessment and findings in the medical record. +nausea. No abdominal pain. Review CT findings with patient. The liver and bone lesions are suspicious for mets breast cancer. Cystoscopy did not show any bladder mass. Will consult radiology for biopsy of the liver lesion. Problem Qualifiers (1) Breast cancer: (2) Hydronephrosis: Qualified Codes: N13.2 - Hydronephrosis with renal and ureteral calculous obstruction (3) Renal failure: Qualified Codes: N17.9 - Acute kidney failure, unspecified Amy Toledo Aug 13, 2017 08:42 Jonnie Curiel MD Aug 13, 2017 17:08
[2017-08-13] MEDS ORDERED: SODIUM CHLORID 0.9% IV ONE (09:00)
[2017-08-13] MEDS ORDERED: PAMIDRONATE IV ONE (09:00)
[2017-08-13 10:11] LABS: ALBUMIN SPE 3.76 GM/DL (3.50-5.00); ALPHA 1 GLOBULIN 0.25 GM/DL (0.11-0.29); ALPHA 2 GLOBULIN 0.86 GM/DL (0.22-1.00); BETA GLOBULINS (SPE) 0.68 GM/DL (0.53-1.03)
[2017-08-13] MEDS: SODIUM CHLOR 0.9% 1000 ML INJ 1,000 ML IV SCH (12:49)
--- NOTE | 2017-08-13 13:14 | HHI.PR ---
Subjective Subjective Remarks Resting in bed Appears weakened, decreased appetite, decreased by mouth intake Daughter states that she partially does this so she does not have to urinate so much Nausea, hold liver biopsy until patient's feeling better possible tomorrow per oncology note Color pale, mild icterus (Geovanna Roy) Review of Systems Constitutional Constitutional: Fatigue, Weight Change (weight loss), Weakness Constitutional Remarks 10 point ROS done positives noted (Geovanna Roy) GI/Abdomen GI/Abdominal Exam: Nausea, Vomiting (Geovanna Roy) Musculoskeletal MS: Weakness (Geovanna Roy) Integumentary Skin Remarks Dry, pale (Geovanna Roy) Neurologic Neurologic Remarks Drowsy but responds to verbal stimuli (Geovanna Roy) Psychiatric Psychiatric: Normal Mood (Geovanna Roy) Vitals/Results Vital Signs Vital Signs Date Time Temp Pulse Resp B/P (MAP) Pulse Ox O2 Delivery O2 Flow Rate FiO2 08/13/17 12:39 97.7 97 18 168/91 (116) 95 08/13/17 09:08 167/87 (113) 08/13/17 08:00 97.7 97 18 174/95 (121) 96 08/13/17 05:00 98 08/13/17 04:00 92 08/13/17 03:00 89 08/13/17 03:00 97.8 94 18 159/87 (111) 96 08/13/17 02:00 86 08/13/17 01:00 94 08/13/17 00:00 88 08/12/17 23:00 97.7 89 18 148/88 (108) 96 08/12/17 23:00 88 08/12/17 22:00 90 08/12/17 21:00 98 08/12/17 20:00 98.1 100 18 169/87 (114) 97 08/12/17 20:00 102 08/12/17 19:46 98 08/12/17 16:00 95.6 98 19 186/92 (123) 100 (Geovanna Roy) CBC/BMP: 08/12/17 0657 08/13/17 0500 Lab Results Laboratory Tests Test 08/13/17 05:00 Blood Urea Nitrogen 54 MG/DL Creatinine 4.39 MG/DL Random Glucose 99 MG/DL Total Protein 7.2 GM/DL Calcium Level 13.1 MG/DL Sodium Level 138 MEQ/L Potassium Level 3.6 MEQ/L Chloride Level 101 MEQ/L Carbon Dioxide Level 27.1 MEQ/L Anion Gap 10 MEQ/L Estimat Glomerular Filtration Rate 10 ML/MIN Protein Corrected Calcium 13.1 MG/DL Imaging Remarks Last Impressions Abdomen/Pelvis CT 08/11/17 1510 Signed Impressions: Service Date/Time: Friday, August 11, 2017 15:39 - CONCLUSION: 1. Multiple new ill-defined low-attenuation lesions in the liver characteristic of metastatic disease. There is new ascitic fluid as well. 2. Multiple subtle scattered lytic osseous lesions most characteristic of metastatic disease. 3. The uterus is more prominent than on the prior study with ill-defined masslike areas along the posterior aspect. The uterus is not well defined from the surrounding bowel secondary to lack of contrast. 4. Bilateral moderate to severe hydronephrosis. There is dilatation of both ureters. 5. Bladder wall thickening involving the posterior and superior aspects of the bladder which is new from the prior study. This is nonspecific but of concern for possible tumor given the bilateral hydronephrosis. Marshal Ayala MD Head CT 08/11/17 1312 Signed Impressions: Service Date/Time: Friday, August 11, 2017 15:32 - CONCLUSION: Negative trauma CT Marshal Ayala MD Chest X-Ray 08/11/17 1312 Signed Impressions: Service Date/Time: Friday, August 11, 2017 13:15 - CONCLUSION: No acute cardiopulmonary abnormality is identified. Nelson Dutta MD Current Medications Administered Medications Medications (Trade) Dose Ordered Sig/Joshua Route PRN Reason Start Time Stop Time Status Last Admin Dose Admin Citalopram Hydrobromide (CeleXA) 10 mg DAILY PO 08/12/17 09:00 08/13/17 08:12 Cyclobenzaprine HCl (Flexeril) 10 mg TID PO 08/11/17 18:00 08/13/17 08:13 Pravastatin Sodium (Pravachol) 40 mg DAILY PO 08/12/17 09:00 08/13/17 08:13 Sodium Chloride (NS Flush) 2 ml BID IV FLUSH 08/11/17 21:00 08/13/17 08:13 Heparin Sodium (Porcine) (Heparin Inj) 5,000 units Q12H SQ 08/11/17 20:00 08/13/17 07:41 Senna/Docusate Sodium (Gisselle-Colace) 1 tab BID PO 08/11/17 21:00 08/13/17 08:12 Furosemide (Lasix Inj) 20 mg BID@09,18 IV PUSH 08/11/17 18:00 08/13/17 08:12 Hydralazine HCl (Apresoline) 50 mg Q4HR PRN PO SBP>160, DBP>90 08/11/17 17:30 08/12/17 23:51 Morphine Sulfate (Morphine Inj) 3 mg Q3H PRN IV PUSH pain 3-10 08/11/17 18:00 08/12/17 23:51 Sodium Chloride 1,000 ml @ 42 mls/hr [id number] IV 08/12/17 13:00 08/12/17 13:53 Pamidronate Disodium 30 mg/ Sodium Chloride 500 ml @ 80 mls/hr ONCE ONCE IV 08/13/17 09:00 08/13/17 15:14 08/13/17 08:11 Acetaminophen/ Hydrocodone Bitart ([place] 5-325 Mg) 1 tab Q4H PRN PO PAIN SCALE 5 TO 10 08/12/17 16:00 08/13/17 01:46 Diltiazem HCl (Cardizem) 30 mg QID PO 08/12/17 18:15 08/13/17 08:12 Metoprolol Tartrate (Lopressor) 12.5 mg Q12HR PO 08/12/17 21:00 08/13/17 08:13 Ondansetron HCl (Zofran Inj) 4 mg Q4H PRN IV PUSH NAUSEA 08/13/17 05:45 08/13/17 07:37 (Geovanna Roy) Physical Exam General General Appearance: Pale, Anxious (mild) Appearance Remarks Weak, nausea, decreased appetite (Geovanna Roy) Eyes Eye Exam: Pupils Reactive (Geovanna Roy) Ears & Nose Ears & Nose Exam: Nasal Mucosa [place] (Geovanna Roy) Throat Throat Exam: Oral Mucosa [place] & Moist (pale) (Geovanna Roy) Neck Neck Exam: Neck Supple, Trachea Midline (Geovanna Roy) Pulmonary Resp Exam: Breath Sounds Equal, Diminished Breath Sounds (mild) (Geovanna Roy) Cardiology CV Exam: Tachycardia (on admission, normal range now, 97) (Geovanna Roy) Gastrointestinal/Abdomen GI Exam: Soft, Non-Tender, Mass Present GI Remarks Soft taut, nontender, (Geovanna Roy) Genitourinary Remarks Monitor for INR patient has had decreased urine output, as given IV Lasix (Geovanna Roy) Musculoskeletal MS Remarks Turgor turgor thing in, (Geovanna Roy) Assessment/Plan Problem List: (1) Hydronephrosis ICD Codes: N13.30 - Unspecified hydronephrosis Status: Acute (2) Renal failure ICD Codes: N19 - Unspecified kidney failure Status: Acute (3) UTI (lower urinary tract infection) ICD Codes: N39.0 - UTI (lower urinary tract infection) Status: Acute Assessment/Plan Possible cancer with metastasis, questionable origin, she has history of breast cancer Abdominal pain, left and right lower quadrant, CT scan noted with possible metastasis, liver lesions, hydronephrosis bilateral, hypercalcemia, hematology consult for their expert opinion and plan a care pain management if needed, nausea meds, and continue IV hydration, Monitor bowel regimen, states normal BM this a.m. Hydronephrosis with renal and ureteral calculus obstruction, nephrology consult , assist with plan of care, patient had cystoscopy, bilateral retrograde pyelogram, bilateral ureteral stent insertion. Continue IV hydration, monitor labs Acute kidney failure, , monitor vital signs, appreciate nephrology input, agrees with IV hydration Hypertension uncontrolled, medical management reconcile medications, hydralazine when necessary, Hypercalcemia severe, probable secondary to #1, IV hydration monitor labs, planned for liver biopsy to evaluate possible metastases. According to the note this was explained to daughter and patient and patient's about possible metastasis. Daughter is still asking questions about elevated calcium level and what can be done to get that down, never mentioned cancer. We discussed plan of care to get biopsy done as soon as possible, so patient and family will no what her options are. After receiving IV hydration and Lasix, calcium level has decreased to 13.1 from 15. Tachycardia, without history of heart disease, possible secondary to uncontrolled HTN, Lasix IV, diuresis, pulse in the 90s, monitor for any further tachycardia, medical management Check labs in the morning DVT prophylaxis heparin PUD prophylaxis, Pepcid Discussed With: Nurse, Family (patient), Other (Dr. Mejias, seen on his behalf) (Geovanna Roy) Assessment/Plan seen, examined by myself, Dr Mejias, today Discussed with patient , discussed with nurse Patient has a complaint of pain below her left breast This was examined in the presence of her nurse Pain appears to be emanating from the left ribs, tender on palpation rib cage Waiting for biopsy, liver versus bone Oncology following, report noted and appreciated Discussed with mid level provider The exam, history, and the medical decision-making described in the above note were completed with the assistance of the mid-level provider. I reviewed the findings presented. I attest that I had a [id number] encounter with the patient on the same day, and personally performed and documented my assessment and findings in the medical record. (Anthony Mejias MD) Problem Qualifiers (1) Hydronephrosis: Qualified Codes: N13.2 - Hydronephrosis with renal and ureteral calculous obstruction (2) Renal failure: Qualified Codes: N17.9 - Acute kidney failure, unspecified Geovanna Roy Aug 13, 2017 13:14 Anthony Mejias MD Aug 13, 2017 15:52
--- NOTE | 2017-08-13 16:51 | HHI.NPPN ---
Subjective History of Present Illness 76-year-old female with past medical history of hypertension, hyperlipidemia, spinal stenosis, macular degeneration, and breast cancer who came to the hospital with complaint of recurrent falls and generalized weakness. I was called to see the patient because of elevated BUN and creatinine. Additional Remarks Patient is alert, no SOB, eating better. Objective Data Data Vital Signs Date Time Temp Pulse Resp B/P (MAP) Pulse Ox O2 Delivery O2 Flow Rate FiO2 08/13/17 15:32 95 08/13/17 14:00 81 08/13/17 13:00 86 08/13/17 12:39 97.7 97 18 168/91 (116) 95 08/13/17 12:00 84 08/13/17 11:00 94 08/13/17 10:00 90 08/13/17 09:08 167/87 (113) 08/13/17 09:00 96 08/13/17 08:00 92 08/13/17 08:00 97.7 97 18 174/95 (121) 96 08/13/17 07:00 88 08/13/17 05:00 98 08/13/17 04:00 92 08/13/17 03:00 89 08/13/17 03:00 97.8 94 18 159/87 (111) 96 08/13/17 02:00 86 08/13/17 01:00 94 08/13/17 00:00 88 08/12/17 23:00 97.7 89 18 148/88 (108) 96 08/12/17 23:00 88 08/12/17 22:00 90 08/12/17 21:00 98 08/12/17 20:00 98.1 100 18 169/87 (114) 97 08/12/17 20:00 102 08/12/17 19:46 98 -: 08/12/17 0657 08/13/17 0500 Physical Exam General Appearance: No Acute Distress, Comfortable, Pale Eyes Eye Exam: Pupils Reactive Ears & Nose Ears & Nose Exam: Nasal Mucosa [place] Throat Throat Exam: Oral Mucosa [place] & Moist (pale) Neck Neck Exam: Neck Supple, Trachea Midline Pulmonary Resp Exam: Breath Sounds Equal, Diminished Breath Sounds (mild) Cardiology CV Exam: Tachycardia (on admission, normal range now, 97) Gastrointestinal/Abdomen GI Exam: Soft, Non-Tender, Mass Present Extremeties Extremities Exam: Trace Edema Neurologic Neuro Exam: Alert, Awake, Oriented Psychiatric Psych Exam: Appropriate Responses Assessment/Plan Assessment Summary: PRATIK/Acute Renal Failure Electrolyte Assessment: Hypercalcemia Problem List: (1) Hydronephrosis ICD Codes: N13.30 - Unspecified hydronephrosis Status: Acute (2) Breast cancer ICD Codes: C50.919 - Breast cancer Status: Chronic (3) Serum calcium elevated ICD Codes: E83.52 - Hypercalcemia Status: Acute (4) Anemia ICD Codes: D64.9 - Anemia Status: Acute (5) UTI (lower urinary tract infection) ICD Codes: N39.0 - UTI (lower urinary tract infection) Status: Acute (6) Renal failure ICD Codes: N19 - Unspecified kidney failure Status: Acute Plan Patient has cystoscopy and bilateral stent done. Has hematuria. BUN and Creatinine improving. Continue IVF and encourage oral fluid intake. Avoid Nephrotoxins and follow the urine out put and BMP. Problem Qualifiers (1) Hydronephrosis: Qualified Codes: N13.2 - Hydronephrosis with renal and ureteral calculous obstruction (2) Breast cancer: (3) Anemia: Qualified Codes: D64.9 - Anemia, unspecified (4) Renal failure: Qualified Codes: N17.9 - Acute kidney failure, unspecified Aly Rich MD Aug 13, 2017 16:51
[2017-08-14] VITALS (24 sets, daily range): BP systolic 125–159; BP diastolic 72–88; PULSE 64–108; RESP 16–20; TEMP 97.5–100.6; O2SAT 91–97
[2017-08-14] MEDS: ACETAMINOPHEN/HYDROcodone 325 MG/5 MG TAB PO PRN (04:09)
[2017-08-14] MEDS: SODIUM CHLOR 0.9% 1000 ML INJ 1,000 ML IV SCH ×2 (04:10→12:38)
[2017-08-14 06:26] LABS: HEMATOCRIT 32.2 % (35.0-46.0); MEAN CELL VOLUME 84.8 FL (80.0-100.0); MEAN CORPUSCULAR HEMOGLOBIN 28.5 PG (27.0-34.0); MEAN CORPUSCULAR HGB CONC 33.6 % (32.0-36.0); PLATELET COUNT 299 TH/MM3 (150-450); RED CELL DISTRIBUTION WIDTH 14.4 % (11.6-17.2); REVIEW FLAG FINAL; WHITE BLOOD COUNT 12.9 TH/MM3 (4.0-11.0)
[2017-08-14 07:06] LABS: BICARBONATE 28.6 MEQ/L (21.0-32.0); POTASSIUM 3.2 MEQ/L (3.5-5.1); TOTAL BILIRUBIN ADULT 0.3 MG/DL (0.2-1.0)
[2017-08-14 07:44] LABS: CALCIUM-PROTEIN CORRECTED 11.8 MG/DL (8.5-10.1)
[2017-08-14] MEDS: HEPARIN SODIUM - SQ 10,000 UNITS/ML VIAL SQ SCH ×2 (08:52→20:42)
[2017-08-14] MEDS ORDERED: POTASSIUM CHLORIDE 25 MEQ EFFERVESCENT TAB PO ONE (09:00)
--- NOTE | 2017-08-14 09:13 | PD.ONC.PN ---
Subjective Subjective Remarks Afebrile overnight. slept ok last night. still some nausea. no abdominal pain. Objective Data Date Time Temp Pulse Resp B/P (MAP) Pulse Ox O2 Delivery O2 Flow Rate FiO2 08/14/17 07:00 97.8 85 18 146/82 (103) 96 08/14/17 06:00 84 08/14/17 05:00 85 08/14/17 04:00 81 08/14/17 03:00 98.0 81 18 159/80 (106) 96 08/14/17 03:00 66 08/14/17 02:00 64 08/14/17 01:00 77 08/14/17 00:00 79 08/14/17 00:00 97.8 79 18 148/88 (108) 97 08/13/17 23:00 73 08/13/17 22:00 74 08/13/17 21:00 74 08/13/17 20:00 77 08/13/17 19:00 78 08/13/17 19:00 98.0 78 18 152/90 (110) 95 08/13/17 18:00 88 08/13/17 17:00 94 08/13/17 16:52 98.2 92 18 161/87 (111) 95 08/13/17 16:00 88 08/13/17 15:32 95 08/13/17 15:00 81 08/13/17 14:00 81 08/13/17 13:00 86 08/13/17 12:39 97.7 97 18 168/91 (116) 95 08/13/17 12:00 84 08/13/17 11:00 94 08/13/17 10:00 90 08/14/17 08/14/17 08/14/17 07:00 15:00 23:00 Intake Total 1720 ml Output Total 1250 ml Balance 470 ml Result Diagram: 08/14/17 0440 08/14/17 0440 Laboratory Results Laboratory Tests Test 08/13/17 12:55 08/14/17 04:40 CA 15-3 Antigen 39.1 U/ML White Blood Count 12.9 TH/MM3 Red Blood Count 3.80 MIL/MM3 Hemoglobin 10.8 GM/DL Hematocrit 32.2 % Mean Corpuscular Volume 84.8 FL Mean Corpuscular Hemoglobin 28.5 PG Mean Corpuscular Hemoglobin Concent 33.6 % Red Cell Distribution Width 14.4 % Platelet Count 299 TH/MM3 Mean Platelet Volume 9.4 FL Blood Urea Nitrogen 52 MG/DL Creatinine 4.02 MG/DL Random Glucose 79 MG/DL Total Protein 6.9 GM/DL Albumin 3.1 GM/DL Calcium Level 11.6 MG/DL Alkaline Phosphatase 78 U/L Aspartate Amino Transf (AST/SGOT) 18 U/L Alanine Aminotransferase (ALT/SGPT) 11 U/L Total Bilirubin 0.3 MG/DL Sodium Level 133 MEQ/L Potassium Level 3.2 MEQ/L Chloride Level 96 MEQ/L Carbon Dioxide Level 28.6 MEQ/L Anion Gap 8 MEQ/L Estimat Glomerular Filtration Rate 11 ML/MIN Protein Corrected Calcium 11.8 MG/DL Administered Medications Medications (Trade) Dose Ordered Sig/Joshua Route PRN Reason Start Time Stop Time Status Last Admin Dose Admin Citalopram Hydrobromide (CeleXA) 10 mg DAILY PO 08/12/17 09:00 08/13/17 08:12 Cyclobenzaprine HCl (Flexeril) 10 mg TID PO 08/11/17 18:00 08/13/17 17:54 Pravastatin Sodium (Pravachol) 40 mg DAILY PO 08/12/17 09:00 08/13/17 08:13 Sodium Chloride (NS Flush) 2 ml BID IV FLUSH 08/11/17 21:00 08/13/17 21:50 Heparin Sodium (Porcine) (Heparin Inj) 5,000 units Q12H SQ 08/11/17 20:00 08/13/17 21:50 Senna/Docusate Sodium (Gisselle-Colace) 1 tab BID PO 08/11/17 21:00 08/13/17 21:50 Furosemide (Lasix Inj) 20 mg BID@09,18 IV PUSH 08/11/17 18:00 08/13/17 17:54 Hydralazine HCl (Apresoline) 50 mg Q4HR PRN PO SBP>160, DBP>90 08/11/17 17:30 08/12/17 23:51 Morphine Sulfate (Morphine Inj) 3 mg Q3H PRN IV PUSH pain 3-10 08/11/17 18:00 08/12/17 23:51 Sodium Chloride 1,000 ml @ 42 mls/hr [id number] IV 08/12/17 13:00 08/14/17 04:10 Acetaminophen/ Hydrocodone Bitart ([place] 5-325 Mg) 1 tab Q4H PRN PO PAIN SCALE 5 TO 10 08/12/17 16:00 08/14/17 04:09 Diltiazem HCl (Cardizem) 30 mg QID PO 08/12/17 18:15 08/13/17 21:50 Metoprolol Tartrate (Lopressor) 12.5 mg Q12HR PO 08/12/17 21:00 08/13/17 21:50 Ondansetron HCl (Zofran Inj) 4 mg Q4H PRN IV PUSH NAUSEA 08/13/17 05:45 08/13/17 07:37 Objective Remarks GENERAL: Frail elderly female lying in bed in nad. SKIN: Warm and dry. HEAD: Normocephalic. +dry lips EYES: No injection or drainage. NECK: Supple, trachea midline CARDIOVASCULAR: +S1/S2 RESPIRATORY: anterior [place] clear. GASTROINTESTINAL: Abdomen soft, non-tender, nondistended. EXTREMITIES: No cyanosis NEUROLOGICAL: awake and alert, normal speech. Assessment/Plan Problem List: (1) Breast cancer ICD Codes: C50.919 - Breast cancer Status: Chronic Plan: plan for biopsy of one of liver lesions when clinically able --had a high-risk breast cancer at the time of her diagnosis. --presented with locally advanced stage III, T2N2M0 right breast cancer, invasive ductal carcinoma which was estrogen receptor positive 72%, progesterone receptor positive 57% HER2/arslan negative. --received adjuvant systemic chemotherapy after a right mastectomy could only tolerate 7 out of 12 weeks of Taxol. placed on adjuvant hormonal therapy with Arimidex and switched to letrozole subsequently. --last seen by Dr. Curiel on March 08, 2017. She was advised to continue on letrozole. --CT abdomen, 08/11 shows multiple new ill-defined low-attenuation lesions in the liver characteristic of metastatic disease. has multiple subtle scattered lytic osseous lesions. (2) Hydronephrosis ICD Codes: N13.30 - Unspecified hydronephrosis Status: Acute Plan: --CT abdomen showed moderate to severe hydronephrosis. There is dilatation both ureters, the bladder wall thickening involving the posterior and superior aspect of the bladder is new. Possible tumor is considered. --cystoscopy on 08/12 showed no bladder mass. (3) Hypercalcemia ICD Codes: E83.52 - Hypercalcemia Status: Acute Plan: --receiving IVF --s/p pamidronate 08/13 (4) Renal failure ICD Codes: N19 - Unspecified kidney failure Status: Acute Assessment 76y/o female with h/o breast cancer, admitted with weakness and dizziness. Oncology consulted for suspected metastatic disease due to new findings of liver lesions. h/o locally advanced right breast cancer status post mastectomy. Urinary frequency. Bilateral hydronephrosis. Acute renal failure. Hypertension. Spinal stenosis. Macular degeneration. Degenerative disk disease. Chronic back pain Plan 1. CT guided liver biopsy or iliac crest biopsy today 2. continue IVF 3. monitor calcium. Attending Statement The exam, history, and the medical decision-making described in the above note were completed with the assistance of the mid-level provider. I reviewed and agree with the findings presented. I attest that I had a [id number] encounter with the patient on the same day, and personally performed and documented my assessment and findings in the medical record. Slightly better. Hypercalcemia improved, renal function improved. Ca15-3 slightly elevated. Await biopsy of liver mass for tissue diagnosis. Discussed withradiology at tumor board. Problem Qualifiers (1) Breast cancer: (2) Hydronephrosis: Qualified Codes: N13.2 - Hydronephrosis with renal and ureteral calculous obstruction (3) Renal failure: Qualified Codes: N17.9 - Acute kidney failure, unspecified Amy Toledo Aug 14, 2017 09:13 Jonnie Curiel MD Aug 14, 2017 17:07
--- NOTE | 2017-08-14 09:18 | HHI.PR ---
Subjective Subjective Remarks C/O left sided chest wall pain, points to area under left breast no sob weak oriented x 3 no fever NPO, going for bx man with blood tinged urien Review of Systems Constitutional Constitutional Remarks 12 point ros completed, unreliable Vitals/Results Vital Signs Vital Signs Date Time Temp Pulse Resp B/P (MAP) Pulse Ox O2 Delivery O2 Flow Rate FiO2 08/14/17 07:00 97.8 85 18 146/82 (103) 96 08/14/17 06:00 84 08/14/17 05:00 85 08/14/17 04:00 81 08/14/17 03:00 98.0 81 18 159/80 (106) 96 08/14/17 03:00 66 08/14/17 02:00 64 08/14/17 01:00 77 08/14/17 00:00 79 08/14/17 00:00 97.8 79 18 148/88 (108) 97 08/13/17 23:00 73 08/13/17 22:00 74 08/13/17 21:00 74 08/13/17 20:00 77 08/13/17 19:00 78 08/13/17 19:00 98.0 78 18 152/90 (110) 95 08/13/17 18:00 88 08/13/17 17:00 94 08/13/17 16:52 98.2 92 18 161/87 (111) 95 08/13/17 16:00 88 08/13/17 15:32 95 08/13/17 15:00 81 08/13/17 14:00 81 08/13/17 13:00 86 08/13/17 12:39 97.7 97 18 168/91 (116) 95 08/13/17 12:00 84 08/13/17 11:00 94 08/13/17 10:00 90 CBC/BMP: 08/14/17 0440 08/14/17 0440 Lab Results Laboratory Tests Test 08/13/17 12:55 08/14/17 04:40 CA 15-3 Antigen 39.1 U/ML White Blood Count 12.9 TH/MM3 Red Blood Count 3.80 MIL/MM3 Hemoglobin 10.8 GM/DL Hematocrit 32.2 % Mean Corpuscular Volume 84.8 FL Mean Corpuscular Hemoglobin 28.5 PG Mean Corpuscular Hemoglobin Concent 33.6 % Red Cell Distribution Width 14.4 % Platelet Count 299 TH/MM3 Mean Platelet Volume 9.4 FL Blood Urea Nitrogen 52 MG/DL Creatinine 4.02 MG/DL Random Glucose 79 MG/DL Total Protein 6.9 GM/DL Albumin 3.1 GM/DL Calcium Level 11.6 MG/DL Alkaline Phosphatase 78 U/L Aspartate Amino Transf (AST/SGOT) 18 U/L Alanine Aminotransferase (ALT/SGPT) 11 U/L Total Bilirubin 0.3 MG/DL Sodium Level 133 MEQ/L Potassium Level 3.2 MEQ/L Chloride Level 96 MEQ/L Carbon Dioxide Level 28.6 MEQ/L Anion Gap 8 MEQ/L Estimat Glomerular Filtration Rate 11 ML/MIN Protein Corrected Calcium 11.8 MG/DL Physical Exam General General Appearance: Well Developed, No Acute Distress, Pale Eyes Eye Exam: Pupils Equal, Pupils Reactive Ears & Nose Ears & Nose Exam: Nasal Mucosa [place] Throat Throat Exam: Oral Mucosa [place] & Moist Neck Neck Exam: Neck Supple, Trachea Midline Pulmonary Resp Exam: Breath Sounds Equal, Diminished Breath Sounds Cardiology CV Exam: Regular, Good Perfusion Gastrointestinal/Abdomen GI Exam: Soft, Non-Tender, Bowel Sounds Present, Non-Distended Genitourinary Remarks man with hematuria Musculoskeletal MS Exam: Joints Intact Integumentary Skin Exam: Warm, Dry Extremeties Extremities Exam: No Edema, Pedal Pulses Palpable Neurologic Neuro Exam: Alert, Awake, Speech Clear, Moving All Extremities, No Focal Deficits VTE Prophylaxis VTE Prophylaxis Device: SCDs VTE Prophylaxis Meds: Heparin Assessment/Plan Problem List: (1) Hydronephrosis ICD Codes: N13.30 - Unspecified hydronephrosis Status: Acute (2) Renal failure ICD Codes: N19 - Unspecified kidney failure Status: Acute (3) UTI (lower urinary tract infection) ICD Codes: N39.0 - UTI (lower urinary tract infection) Status: Acute (4) Serum calcium elevated ICD Codes: E83.52 - Hypercalcemia Status: Acute (5) Breast cancer ICD Codes: C50.919 - Breast cancer Status: Chronic (6) Hypercalcemia ICD Codes: E83.52 - Hypercalcemia Status: Acute (7) metastatic liver lesions Status: Acute (8) Anemia ICD Codes: D64.9 - Anemia Status: Acute (9) Sinus tachycardia ICD Codes: R00.0 - Tachycardia, unspecified Status: Acute (10) Accelerated essential hypertension ICD Codes: I10 - Essential (primary) hypertension Status: Acute Assessment/Plan 76 year presented with falls, weakness. Bilat hydronephrosis 08/12 s/p cystoscopy, bilateral retrograde pyelogram, bilateral ureteral stent insertion -appreciate urology input -continue with man, monitor I/O Hypercalcemia PRATIK Hypokalemia -continue with Lasix -calcium trending down slowly -creat slowly trending down -avoid nephrotoxic agents -continue IVF -replace electrolytes Hx of breast cancer CT abdomen, 08/11 shows multiple new ill-defined low-attenuation lesions in the liver characteristic of metastatic disease. has multiple subtle scattered lytic osseous lesions. -oncology following -Ca 15-3 --39.1 -for bx today liver vs bone -keep NPO Hypertension uncontrolled Tachycardia -improved -continue with home meds -Hydralazine PRN -continue CCB and BB -HR and BP improved Physical debility -PT for evaluation and treatment DVT prophylaxis heparin PUD prophylaxis, Pepcid Condition guarded Labs in am f/u after bx D/W RN D/W Dr. John D/W pt This pt. was seen by myself and Dr. john, this note is written on his behalf. Problem Qualifiers (1) Hydronephrosis: Qualified Codes: N13.2 - Hydronephrosis with renal and ureteral calculous obstruction (2) Renal failure: Qualified Codes: N17.9 - Acute kidney failure, unspecified (3) Breast cancer: (4) Anemia: Qualified Codes: D64.9 - Anemia, unspecified Jada Taylor Aug 14, 2017 09:18
[2017-08-14] MEDS: FUROSEMIDE 20 MG/2 ML VIAL IV PUSH SCH ×2 (09:42→18:50)
[2017-08-14] MEDS: METOPROLOL TARTRATE 25 MG TAB PO SCH ×2 (09:42→20:40)
[2017-08-14] MEDS: CITALOPRAM HYDROBROMIDE 20 MG TAB PO SCH (09:42)
[2017-08-14] MEDS: DOCUSATE SODIUM 50 MG/SENNA 8.6 MG TAB PO SCH ×2 (09:42→20:41)
[2017-08-14] MEDS: DILTIAZEM HCL 30 MG TAB PO SCH ×4 (09:42→20:40)
[2017-08-14] MEDS: PRAVASTATIN SOD 40 MG TAB PO SCH (09:42)
[2017-08-14] MEDS: SODIUM CHLORIDE 0.9% FLUSH 10 ML FLUSH IV FLUSH SCH ×2 (09:43→20:41)
[2017-08-14] MEDS: CYCLOBENZAPRINE HCL 10 MG TAB PO SCH ×3 (09:43→18:47)
[2017-08-14] MEDS ORDERED: MIDAZOLAM HCL 2 MG/2 ML VIAL ONE (10:55)
--- NOTE | 2017-08-14 11:40 | PD.RAD ---
Post CT Procedure Prog Note Pre Procedure Diagnosis: (1) Breast cancer (2) metastatic liver lesions Post Procedure Diagnosis: (1) Breast cancer (2) metastatic liver lesions Procedure Date: Aug 14, 2017 Supervising Radiologist: Maverick Pichardo Estimated blood loss: <10 ml Plan of Activity Patient to Unit: Nursing Unit Patient Condition: Good Additional Comments: 4 x 18 cores of right liver mass See PACS Report for procedural detail/treatment Maverick Pichardo MD Aug 14, 2017 11:40 am
--- NOTE | 2017-08-14 13:45 | RADRPT ---
EXAM DATE/TIME: 08/14/2017 11:03 [facility] COMPARISON: No previous studies available for comparison. INDICATIONS : History of breast CA and bladder CA with newly diagnosed diffuse metastatic disease. Liver biopsy has been requested to ensure sufficient soft tissue sampling for HER-2 testing SEDATION TIME: 30 minutes BIOPSY SITE: Liver mass MEDICATION(S): 1.) 1 mg midazolam (Versed) IV 2.) 50 mcg fentanyl (Sublimaze) DEVICE(S): 1.) 18 gauge Temno core biopsy needle 2.) 17 gauge Introducer MEDICAL HISTORY : Hypertension. Carcinoma, breast. SURGICAL HISTORY : Mastectomy. ENCOUNTER: Initial ACUITY: 1 day PAIN SCORE: 3/10 LOCATION: upper quadrant A total of four core specimen(s) were obtained and sent to the laboratory for pathologic evaluation. PROCEDURE: 1. CT guided liver biopsy. 2. Conscious sedation with continuous EKG and oximetry monitoring. 3. EKG and oximetry remained stable throughout the procedure. Prior to the procedure informed consent was obtained. Any appropriate prior imaging studies were rev iewed. Using automated exposure control and adjustment of the mA and/or kV according to patient size, radiat ion dose was kept as low as reasonably achievable to obtain optimal diagnostic quality images. DICOM format image data is available electronically for review and comparison. The site was prepped in a sterile fashion. Full sterile technique was used, including cap, mask, viraj rile gloves and gown and a large sterile sheet. Hand hygiene and 2% chlorhexidine and/or betadine/al cohol prep was utilized per protocol for cutaneous antisepsis. The skin and subcutaneous tissues wer e infiltrated with local anesthetic solution. Ultrasound dilation of the right lobe of the liver was performed. This did not definitely demonstrate a focal mass. CT examination was performed again confirming the mass in the posterior right lobe of the liver. With CT guidance the previously identified target was localized. Biopsy was performed usin g the prescribed needle as above. In total, four 18 gauge core biopsies were obtained. Adequate hemo stasis was obtained with compression at the puncture site. Follow-up CT scan reveals no hemorrhage. The patient tolerated the procedure well and there were no complications. The patient was returned to the Radiology Outpatient Unit in stable condition. CONCLUSION: Uncomplicated CT guided biopsy. Maverick Pichardo MD on August 14, 2017 at 13:39 Board Certified Radiologist. This report was verified electronically.
--- NOTE | 2017-08-14 17:28 | RADRPT ---
EXAM DATE/TIME: 08/14/2017 16:47 [facility] COMPARISON: CHEST SINGLE AP, August 11, 2017, 13:15. INDICATIONS : Short of breath. MEDICAL HISTORY : Carcinoma, breast. SURGICAL HISTORY : None. ENCOUNTER: Initial ACUITY: 1 day PAIN SCORE: 0/10 LOCATION: Bilateral chest FINDINGS: The heart is mildly enlarged. The lungs are clear. The bony structures are grossly intact. The exam i s stable compared to previous. CONCLUSION: 1. Cardiomegaly. No acute abnormality. Rashel Henderson MD on August 14, 2017 at 17:27 Board Certified Radiologist. This report was verified electronically.
--- NOTE | 2017-08-14 22:06 | HHI.NPPN ---
Subjective History of Present Illness 76-year-old female with past medical history of hypertension, hyperlipidemia, spinal stenosis, macular degeneration, and breast cancer who came to the hospital with complaint of recurrent falls and generalized weakness. I was called to see the patient because of elevated BUN and creatinine. Additional Remarks Patient is alert, no SOB, feeling weak and tired. Objective Data Data 08/14/17 08/15/17 19:00 07:00 Intake Total 480 ml Output Total 1350 ml Balance -870 ml Intake Oral 480 ml Output Urine Total 1350 ml Vital Signs Date Time Temp Pulse Resp B/P (MAP) Pulse Ox O2 Delivery O2 Flow Rate FiO2 08/14/17 18:00 88 08/14/17 17:02 85 08/14/17 16:00 100 08/14/17 15:00 102 08/14/17 15:00 98.5 108 20 155/74 (101) 92 08/14/17 14:00 102 08/14/17 13:30 97.5 94 16 152/85 (107) 92 08/14/17 13:00 88 08/14/17 10:00 88 08/14/17 10:00 93 08/14/17 09:00 86 08/14/17 09:00 78 08/14/17 08:00 92 08/14/17 08:00 88 08/14/17 07:04 79 08/14/17 07:00 96 08/14/17 07:00 97.8 85 18 146/82 (103) 96 08/14/17 06:00 84 08/14/17 05:00 85 08/14/17 04:00 81 08/14/17 03:00 98.0 81 18 159/80 (106) 96 08/14/17 03:00 66 08/14/17 02:00 64 08/14/17 01:00 77 08/14/17 00:00 79 08/14/17 00:00 97.8 79 18 148/88 (108) 97 08/13/17 23:00 73 -: 08/14/17 0440 08/14/17 0440 Physical Exam General Appearance: No Acute Distress, Comfortable, Pale Eyes Eye Exam: Pupils Equal, Pupils Reactive Ears & Nose Ears & Nose Exam: Nasal Mucosa [place] Throat Throat Exam: Oral Mucosa [place] & Moist Neck Neck Exam: Neck Supple, Trachea Midline Pulmonary Resp Exam: Breath Sounds Equal, Diminished Breath Sounds Cardiology CV Exam: Regular, Good Perfusion Gastrointestinal/Abdomen GI Exam: Soft, Non-Tender, Bowel Sounds Present, Non-Distended Musculoskeletal MS Exam: Joints Intact Integumentary Skin Exam: Warm, Dry Extremeties Extremities Exam: Trace Edema Neurologic Neuro Exam: Alert, Awake, Oriented Psychiatric Psych Exam: Appropriate Responses VTE Prophylaxis Device: SCDs Assessment/Plan Assessment Summary: PRATIK/Acute Renal Failure Electrolyte Assessment: Hypercalcemia Problem List: (1) Hydronephrosis ICD Codes: N13.30 - Unspecified hydronephrosis Status: Acute (2) Breast cancer ICD Codes: C50.919 - Breast cancer Status: Chronic (3) Serum calcium elevated ICD Codes: E83.52 - Hypercalcemia Status: Acute (4) Anemia ICD Codes: D64.9 - Anemia Status: Acute (5) UTI (lower urinary tract infection) ICD Codes: N39.0 - UTI (lower urinary tract infection) Status: Acute (6) Renal failure ICD Codes: N19 - Unspecified kidney failure Status: Acute Plan Patient has cystoscopy and bilateral stent done. Has hematuria. BUN and Creatinine improving. Urine out put is good. Continue IVF and encourage oral fluid intake. Avoid Nephrotoxins and follow the urine out put and BMP. Creatinine now 4.0, was 1.0 in 2015. Problem Qualifiers (1) Hydronephrosis: Qualified Codes: N13.2 - Hydronephrosis with renal and ureteral calculous obstruction (2) Breast cancer: (3) Anemia: Qualified Codes: D64.9 - Anemia, unspecified (4) Renal failure: Qualified Codes: N17.9 - Acute kidney failure, unspecified Aly Rich MD Aug 14, 2017 22:06
[2017-08-15] VITALS (29 sets, daily range): BP systolic 129–153; BP diastolic 72–92; PULSE 73–116; RESP 16–18; TEMP 98.1–98.5; O2SAT 94–100
[2017-08-15 06:19] LABS: MEAN CELL VOLUME 84.8 FL (80.0-100.0); MEAN CORPUSCULAR HEMOGLOBIN 28.1 PG (27.0-34.0); MEAN CORPUSCULAR HGB CONC 33.1 % (32.0-36.0); PLATELET COUNT 299 TH/MM3 (150-450); RED BLOOD COUNT 3.78 MIL/MM3 (4.00-5.30); RED CELL DISTRIBUTION WIDTH 13.9 % (11.6-17.2); REVIEW FLAG FINAL; WHITE BLOOD COUNT 11.2 TH/MM3 (4.0-11.0)
[2017-08-15 07:55] LABS: ALKALINE PHOSPHATASE 73 U/L (45-117); ALT (GPT) 13 U/L (10-53); ANION GAP 12 MEQ/L (5-15); AST (GOT) 24 U/L (15-37); BICARBONATE 25.7 MEQ/L (21.0-32.0); BLOOD UREA NITROGEN 55 MG/DL (7-18); CHLORIDE 94 MEQ/L (98-107); GLOMERULAR FILTRATION RATE 11 ML/MIN (>89); SODIUM (NA) 132 MEQ/L (136-145); TOTAL BILIRUBIN ADULT 0.4 MG/DL (0.2-1.0)
[2017-08-15] MEDS: CYCLOBENZAPRINE HCL 10 MG TAB PO SCH ×3 (10:24→17:14)
[2017-08-15] MEDS: PRAVASTATIN SOD 40 MG TAB PO SCH (10:25)
[2017-08-15] MEDS: HEPARIN SODIUM - SQ 10,000 UNITS/ML VIAL SQ SCH ×2 (10:26→20:00)
[2017-08-15] MEDS: CITALOPRAM HYDROBROMIDE 20 MG TAB PO SCH (10:26)
[2017-08-15] MEDS: DOCUSATE SODIUM 50 MG/SENNA 8.6 MG TAB PO SCH ×2 (10:26→22:43)
[2017-08-15] MEDS: DILTIAZEM HCL 30 MG TAB PO SCH (10:26)
[2017-08-15] MEDS: SODIUM CHLORIDE 0.9% FLUSH 10 ML FLUSH IV FLUSH SCH ×2 (10:26→21:00)
[2017-08-15] MEDS: METOPROLOL TARTRATE 25 MG TAB PO SCH ×2 (10:26→21:00)
--- NOTE | 2017-08-15 10:32 | HHI.NPPN ---
Subjective History of Present Illness 76-year-old female with past medical history of hypertension, hyperlipidemia, spinal stenosis, macular degeneration, and breast cancer who came to the hospital with complaint of recurrent falls and generalized weakness. I was called to see the patient because of elevated BUN and creatinine. Additional Remarks Patient is alert, no SOB, has weakness in legs, walk some with walker, not in distress. Objective Data Data Vital Signs Date Time Temp Pulse Resp B/P (MAP) Pulse Ox O2 Delivery O2 Flow Rate FiO2 08/15/17 10:00 109 08/15/17 09:00 114 08/15/17 08:00 102 08/15/17 08:00 102 08/15/17 07:05 98 08/15/17 07:00 98.3 97 17 153/92 (112) 99 08/15/17 07:00 98 08/15/17 06:01 78 08/15/17 05:01 79 08/15/17 04:01 77 08/15/17 03:01 98.1 80 18 151/81 (104) 100 08/15/17 03:01 80 08/15/17 02:36 97 08/15/17 02:01 73 08/15/17 01:01 78 08/15/17 00:01 73 08/14/17 23:01 76 08/14/17 23:01 98.8 82 18 125/77 (93) 97 08/14/17 22:01 78 08/14/17 21:01 78 08/14/17 20:01 87 08/14/17 19:01 103 08/14/17 19:01 100.6 103 18 126/72 (90) 91 08/14/17 18:00 88 08/14/17 17:02 85 08/14/17 16:00 100 08/14/17 15:00 102 08/14/17 15:00 98.5 108 20 155/74 (101) 92 08/14/17 14:00 102 08/14/17 13:30 97.5 94 16 152/85 (107) 92 08/14/17 13:00 88 -: 08/15/17 0500 08/15/17 0500 Physical Exam General Appearance: No Acute Distress, Comfortable, Pale Eyes Eye Exam: Pupils Equal, Pupils Reactive Ears & Nose Ears & Nose Exam: Nasal Mucosa [place] Throat Throat Exam: Oral Mucosa [place] & Moist Neck Neck Exam: Neck Supple, Trachea Midline Pulmonary Resp Exam: Breath Sounds Equal, Diminished Breath Sounds Cardiology CV Exam: Regular, Good Perfusion Gastrointestinal/Abdomen GI Exam: Soft, Non-Tender, Bowel Sounds Present, Non-Distended Musculoskeletal MS Exam: Joints Intact Integumentary Skin Exam: Warm, Dry Extremeties Extremities Exam: Trace Edema Neurologic Neuro Exam: Alert, Awake, Oriented Psychiatric Psych Exam: Appropriate Responses VTE Prophylaxis Device: SCDs Assessment/Plan Assessment Summary: PRATIK/Acute Renal Failure Electrolyte Assessment: Hypercalcemia Problem List: (1) Hydronephrosis ICD Codes: N13.30 - Unspecified hydronephrosis Status: Acute (2) Breast cancer ICD Codes: C50.919 - Breast cancer Status: Chronic (3) Serum calcium elevated ICD Codes: E83.52 - Hypercalcemia Status: Acute (4) Anemia ICD Codes: D64.9 - Anemia Status: Acute (5) UTI (lower urinary tract infection) ICD Codes: N39.0 - UTI (lower urinary tract infection) Status: Acute (6) Renal failure ICD Codes: N19 - Unspecified kidney failure Status: Acute Plan Patient has cystoscopy and bilateral stent done. Has hematuria. BUN and Creatinine improving. Urine out put is good. Continue IVF and encourage oral fluid intake. Avoid Nephrotoxins and follow the urine out put and BMP. Creatinine now 4.1, was 1.0 in 2015. May have some permanent damage to renal function. D/W the family, and daughter in detail. Problem Qualifiers (1) Hydronephrosis: Qualified Codes: N13.2 - Hydronephrosis with renal and ureteral calculous obstruction (2) Breast cancer: (3) Anemia: Qualified Codes: D64.9 - Anemia, unspecified (4) Renal failure: Qualified Codes: N17.9 - Acute kidney failure, unspecified Aly Rich MD Aug 15, 2017 10:32
[2017-08-15] MEDS ORDERED: POTASSIUM CHLORIDE 20 MEQ CONTROLLED RELEASE TAB PO ONE (11:30)
[2017-08-15] MEDS: FUROSEMIDE 20 MG/2 ML VIAL IV PUSH SCH ×2 (12:05→17:14)
[2017-08-15] MEDS: SODIUM CHLOR 0.9% 1000 ML INJ 1,000 ML IV SCH (12:27)
--- NOTE | 2017-08-15 12:44 | HHI.PR ---
Subjective Subjective Remarks sitting up in chair appetite fair awake, oriented x 2, forgetful left hip pain wants to go back to bed no fever at bsd. Review of Systems Constitutional Constitutional Remarks 12 point ros completed, unreliable Vitals/Results Vital Signs Vital Signs Date Time Temp Pulse Resp B/P (MAP) Pulse Ox O2 Delivery O2 Flow Rate FiO2 08/15/17 11:00 98.5 116 17 147/86 (106) 94 08/15/17 10:00 109 08/15/17 09:00 114 08/15/17 08:00 102 08/15/17 08:00 102 08/15/17 07:05 98 08/15/17 07:00 98.3 97 17 153/92 (112) 99 08/15/17 07:00 98 08/15/17 06:01 78 08/15/17 05:01 79 08/15/17 04:01 77 08/15/17 03:01 98.1 80 18 151/81 (104) 100 08/15/17 03:01 80 08/15/17 02:36 97 08/15/17 02:01 73 08/15/17 01:01 78 08/15/17 00:01 73 08/14/17 23:01 76 08/14/17 23:01 98.8 82 18 125/77 (93) 97 08/14/17 22:01 78 08/14/17 21:01 78 08/14/17 20:01 87 08/14/17 19:01 103 08/14/17 19:01 100.6 103 18 126/72 (90) 91 08/14/17 18:00 88 08/14/17 17:02 85 08/14/17 16:00 100 08/14/17 15:00 102 08/14/17 15:00 98.5 108 20 155/74 (101) 92 08/14/17 14:00 102 08/14/17 13:30 97.5 94 16 152/85 (107) 92 08/14/17 13:00 88 CBC/BMP: 08/15/17 0500 08/15/17 0500 Lab Results Laboratory Tests Test 08/15/17 05:00 White Blood Count 11.2 TH/MM3 Red Blood Count 3.78 MIL/MM3 Hemoglobin 10.6 GM/DL Hematocrit 32.0 % Mean Corpuscular Volume 84.8 FL Mean Corpuscular Hemoglobin 28.1 PG Mean Corpuscular Hemoglobin Concent 33.1 % Red Cell Distribution Width 13.9 % Platelet Count 299 TH/MM3 Mean Platelet Volume 8.9 FL Blood Urea Nitrogen 55 MG/DL Creatinine 4.10 MG/DL Random Glucose 73 MG/DL Total Protein 7.0 GM/DL Albumin 2.9 GM/DL Calcium Level 10.4 MG/DL Alkaline Phosphatase 73 U/L Aspartate Amino Transf (AST/SGOT) 24 U/L Alanine Aminotransferase (ALT/SGPT) 13 U/L Total Bilirubin 0.4 MG/DL Sodium Level 132 MEQ/L Potassium Level 3.0 MEQ/L Chloride Level 94 MEQ/L Carbon Dioxide Level 25.7 MEQ/L Anion Gap 12 MEQ/L Estimat Glomerular Filtration Rate 11 ML/MIN Physical Exam General General Appearance: No Acute Distress, Comfortable, Pale Eyes Eye Exam: Pupils Equal, Pupils Reactive Ears & Nose Ears & Nose Exam: Nasal Mucosa [place] Throat Throat Exam: Oral Mucosa [place] & Moist Neck Neck Exam: Neck Supple, Trachea Midline Pulmonary Resp Exam: Breath Sounds Equal, Diminished Breath Sounds Cardiology CV Exam: Regular, Good Perfusion Gastrointestinal/Abdomen GI Exam: Soft, Non-Tender, Bowel Sounds Present, Non-Distended Genitourinary Remarks man with hematuria Musculoskeletal MS Exam: Joints Intact Integumentary Skin Exam: Warm, Dry Extremeties Extremities Exam: Trace Edema Neurologic Neuro Exam: Alert, Awake, Oriented Psychiatric Psych Exam: Appropriate Responses VTE Prophylaxis VTE Prophylaxis Device: SCDs VTE Prophylaxis Meds: Heparin Assessment/Plan Problem List: (1) Hydronephrosis ICD Codes: N13.30 - Unspecified hydronephrosis Status: Acute (2) Renal failure ICD Codes: N19 - Unspecified kidney failure Status: Acute (3) UTI (lower urinary tract infection) ICD Codes: N39.0 - UTI (lower urinary tract infection) Status: Acute (4) Serum calcium elevated ICD Codes: E83.52 - Hypercalcemia Status: Acute (5) Breast cancer ICD Codes: C50.919 - Breast cancer Status: Chronic (6) Hypercalcemia ICD Codes: E83.52 - Hypercalcemia Status: Acute (7) metastatic liver lesions Status: Acute (8) Anemia ICD Codes: D64.9 - Anemia Status: Acute (9) Sinus tachycardia ICD Codes: R00.0 - Tachycardia, unspecified Status: Acute (10) Accelerated essential hypertension ICD Codes: I10 - Essential (primary) hypertension Status: Acute Assessment/Plan 76 year presented with falls, weakness. Bilat hydronephrosis Bladder wall thickening per CT findings, poss malignancy 08/12 s/p cystoscopy, bilateral retrograde pyelogram, bilateral ureteral stent insertion -appreciate urology input -continue with man, monitor I/O -remains with some hematuria Hypercalcemia PRATIK Hypokalemia -continue with Lasix IV -calcium trending down slowly -creat remains marginal. -avoid nephrotoxic agents -continue IVF -replace electrolytes as needed -appreciate renal input -likely will have permanent renal damage Hx of breast cancer CT abdomen, 08/11 shows multiple new ill-defined low-attenuation lesions in the liver characteristic of metastatic disease. has multiple subtle scattered lytic osseous lesions. -oncology following -Ca 15-3 --39.1 -s/p liver bx in IR 08/14, results pending Hypertension uncontrolled Tachycardia -continue with home meds -Hydralazine PRN -continue CCB and BB -HR trending up. Inc. Cardizem to 60 mg po QID Physical debility -PT for evaluation and treatment DVT prophylaxis heparin PUD prophylaxis, Pepcid Condition guarded Inc. activity, continue with PT labs in am CM consult for dc planning, C vs SNF D/W RN D/W Dr. John D/W pt and This pt. was seen by myself and Dr. john, this note is written on his behalf. Problem Qualifiers (1) Hydronephrosis: Qualified Codes: N13.2 - Hydronephrosis with renal and ureteral calculous obstruction (2) Renal failure: Qualified Codes: N17.9 - Acute kidney failure, unspecified (3) Breast cancer: (4) Anemia: Qualified Codes: D64.9 - Anemia, unspecified Jada Taylor Aug 15, 2017 12:44
--- NOTE | 2017-08-15 12:48 | HHI.FF ---
Face to Face Verification Diagnosis: (1) Breast cancer (2) metastatic liver lesions (3) Serum calcium elevated (4) Hypercalcemia (5) Sinus tachycardia (6) Anemia Physical Therapy Order: Evaluate and Treat Home Health Nursing Order: Medical education Nursing assessment with vital signs I have seen patient Melody Kwok on 08/15/17. My clinical findings support the need for the requested home health care services because: Deconditioned w/ increased weakness Limited ability to care for self Need for psychosocial assistance Impaired cognition/judgement I certify that my clinical findings support that this patient is homebound because: Impaired cognitive ability/safety Unsteady gait/balance Unsafe to leave home unassisted Need for psychosocial assistance Jada Taylor [facility] Aug 15, 2017 12:48
[2017-08-15] MEDS: DILTIAZEM HCL 60 MG TAB PO SCH ×3 (13:22→22:43)
--- NOTE | 2017-08-15 14:06 | PD.ONC.PN ---
Subjective Subjective Remarks Afebrile Patient complains of being uncomfortable in bed Otherwise pain generally controlled Objective Data Date Time Temp Pulse Resp B/P (MAP) Pulse Ox O2 Delivery O2 Flow Rate FiO2 08/15/17 11:00 98.5 116 17 147/86 (106) 94 08/15/17 10:00 109 08/15/17 09:00 114 08/15/17 08:00 102 08/15/17 08:00 102 08/15/17 07:05 98 08/15/17 07:00 98.3 97 17 153/92 (112) 99 08/15/17 07:00 98 08/15/17 06:01 78 08/15/17 05:01 79 08/15/17 04:01 77 08/15/17 03:01 98.1 80 18 151/81 (104) 100 08/15/17 03:01 80 08/15/17 02:36 97 08/15/17 02:01 73 08/15/17 01:01 78 08/15/17 00:01 73 08/14/17 23:01 76 08/14/17 23:01 98.8 82 18 125/77 (93) 97 08/14/17 22:01 78 08/14/17 21:01 78 08/14/17 20:01 87 08/14/17 19:01 103 08/14/17 19:01 100.6 103 18 126/72 (90) 91 08/14/17 18:00 88 08/14/17 17:02 85 08/14/17 16:00 100 08/14/17 15:00 102 08/14/17 15:00 98.5 108 20 155/74 (101) 92 08/15/17 08/15/17 08/15/17 07:00 15:00 23:00 Intake Total 1180 ml Output Total 650 ml Balance 530 ml Result Diagram: 08/15/17 0500 08/15/17 0500 Laboratory Results Laboratory Tests Test 08/15/17 05:00 White Blood Count 11.2 TH/MM3 Red Blood Count 3.78 MIL/MM3 Hemoglobin 10.6 GM/DL Hematocrit 32.0 % Mean Corpuscular Volume 84.8 FL Mean Corpuscular Hemoglobin 28.1 PG Mean Corpuscular Hemoglobin Concent 33.1 % Red Cell Distribution Width 13.9 % Platelet Count 299 TH/MM3 Mean Platelet Volume 8.9 FL Blood Urea Nitrogen 55 MG/DL Creatinine 4.10 MG/DL Random Glucose 73 MG/DL Total Protein 7.0 GM/DL Albumin 2.9 GM/DL Calcium Level 10.4 MG/DL Alkaline Phosphatase 73 U/L Aspartate Amino Transf (AST/SGOT) 24 U/L Alanine Aminotransferase (ALT/SGPT) 13 U/L Total Bilirubin 0.4 MG/DL Sodium Level 132 MEQ/L Potassium Level 3.0 MEQ/L Chloride Level 94 MEQ/L Carbon Dioxide Level 25.7 MEQ/L Anion Gap 12 MEQ/L Estimat Glomerular Filtration Rate 11 ML/MIN Administered Medications Medications (Trade) Dose Ordered Sig/Joshua Route PRN Reason Start Time Stop Time Status Last Admin Dose Admin Citalopram Hydrobromide (CeleXA) 10 mg DAILY PO 08/12/17 09:00 08/15/17 10:26 Cyclobenzaprine HCl (Flexeril) 10 mg TID PO 08/11/17 18:00 08/15/17 13:22 Pravastatin Sodium (Pravachol) 40 mg DAILY PO 08/12/17 09:00 08/15/17 10:25 Sodium Chloride (NS Flush) 2 ml BID IV FLUSH 08/11/17 21:00 08/14/17 20:41 Heparin Sodium (Porcine) (Heparin Inj) 5,000 units Q12H SQ 08/11/17 20:00 08/15/17 10:26 Senna/Docusate Sodium (Gisselle-Colace) 1 tab BID PO 08/11/17 21:00 08/15/17 10:26 Furosemide (Lasix Inj) 20 mg BID@09,18 IV PUSH 08/11/17 18:00 08/15/17 12:05 Hydralazine HCl (Apresoline) 50 mg Q4HR PRN PO SBP>160, DBP>90 08/11/17 17:30 08/12/17 23:51 Morphine Sulfate (Morphine Inj) 3 mg Q3H PRN IV PUSH pain 3-10 08/11/17 18:00 08/12/17 23:51 Sodium Chloride 1,000 ml @ 42 mls/hr [id number] IV 08/12/17 13:00 08/15/17 12:27 Acetaminophen (Tylenol) 650 mg Q4H PRN PO PAIN SCALE 1 TO 4 08/12/17 16:00 08/14/17 20:40 Acetaminophen/ Hydrocodone Bitart ([place] 5-325 Mg) 1 tab Q4H PRN PO PAIN SCALE 5 TO 10 08/12/17 16:00 08/14/17 04:09 Ondansetron HCl (Zofran Inj) 4 mg Q4H PRN IV PUSH NAUSEA 08/13/17 05:45 08/13/17 07:37 Diltiazem HCl (Cardizem) 60 mg QID PO 08/15/17 13:00 08/15/17 13:22 Objective Remarks GENERAL: Frail elderly female lying in bed in [facility]. SKIN: Warm and dry. HEAD: Normocephalic. +dry lips EYES: No injection or drainage. NECK: Supple, trachea midline CARDIOVASCULAR: +S1/S2 RESPIRATORY: anterior ing[place] clear. GASTROINTESTINAL: Abdomen soft, non-tender, nondistended. EXTREMITIES: No cyanosis NEUROLOGICAL: awake and alert, normal speech. Assessment/Plan Problem List: (1) Breast cancer ICD Codes: C50.919 - Breast cancer Status: Chronic Plan: -- Biopsy of liver lesion done 08/14. --had a high-risk breast cancer at the time of her diagnosis. --presented with locally advanced stage III, T2N2M0 right breast cancer, invasive ductal carcinoma which was estrogen receptor positive 72%, progesterone receptor positive 57% HER2/arslan negative. --received adjuvant systemic chemotherapy after a right mastectomy could only tolerate 7 out of 12 weeks of Taxol. placed on adjuvant hormonal therapy with Arimidex and switched to letrozole subsequently. --last seen by Dr. Curiel on March 08, 2017. She was advised to continue on letrozole. --CT abdomen, 08/11 shows multiple new ill-defined low-attenuation lesions in the liver characteristic of metastatic disease. has multiple subtle scattered lytic osseous lesions. (2) Hydronephrosis ICD Codes: N13.30 - Unspecified hydronephrosis Status: Acute Plan: --CT abdomen showed moderate to severe hydronephrosis. There is dilatation both ureters, the bladder wall thickening involving the posterior and superior aspect of the bladder is new. Possible tumor is considered. --cystoscopy on 08/12 showed no bladder mass. (3) Hypercalcemia ICD Codes: E83.52 - Hypercalcemia Status: Acute Plan: --receiving IVF --s/p pamidronate 08/13 -- Improving (4) Renal failure ICD Codes: N19 - Unspecified kidney failure Status: Acute Assessment 76y/o female with h/o breast cancer, admitted with weakness and dizziness. Oncology consulted for suspected metastatic disease due to new findings of liver lesions. h/o locally advanced right breast cancer status post mastectomy. Urinary frequency. Bilateral hydronephrosis. Acute renal failure. Hypertension. Spinal stenosis. Macular degeneration. Degenerative disk disease. Chronic back pain Plan 1. CT guided liver biopsy yesterday 2. Calcium noted to be decreasing; continue to monitor 3. Continue IV fluids 4. Monitor kidney function Attending Statement The exam, history, and the medical decision-making described in the above note were completed with the assistance of the mid-level provider. I reviewed and agree with the findings presented. I attest that I had a [id number] encounter with the patient on the same day, and personally performed and documented my assessment and findings in the medical record. Feeling better. Ca trended lower. S/p biopsy of liver mass, path pending. Continue supportive care Problem Qualifiers (1) Breast cancer: (2) Hydronephrosis: Qualified Codes: N13.2 - Hydronephrosis with renal and ureteral calculous obstruction (3) Renal failure: Qualified Codes: N17.9 - Acute kidney failure, unspecified Yancy Liu Aug 15, 2017 14:06 Jonnie Curiel MD Aug 15, 2017 15:19
[2017-08-16] VITALS (20 sets, daily range): BP systolic 111–148; BP diastolic 70–84; PULSE 72–102; RESP 16–20; TEMP 97.9–98.4; O2SAT 96–100
[2017-08-16 06:52] LABS: MEAN CELL VOLUME 83.2 FL (80.0-100.0); MEAN CORPUSCULAR HEMOGLOBIN 28.5 PG (27.0-34.0); MEAN CORPUSCULAR HGB CONC 34.3 % (32.0-36.0); PLATELET COUNT 284 TH/MM3 (150-450); RED CELL DISTRIBUTION WIDTH 14.1 % (11.6-17.2); REVIEW FLAG FINAL; WHITE BLOOD COUNT 11.8 TH/MM3 (4.0-11.0)
[2017-08-16 07:08] LABS: BICARBONATE 26.8 MEQ/L (21.0-32.0)
[2017-08-16 07:50] LABS: POTASSIUM 2.8 MEQ/L (3.5-5.1)
[2017-08-16] MEDS ORDERED: POTASSIUM CHLORIDE 20 MEQ CONTROLLED RELEASE TAB PO ONE (08:30)
[2017-08-16] MEDS: POTASSIUM CHLORIDE 20 MEQ CONTROLLED RELEASE TAB PO SCH (09:00)
[2017-08-16] MEDS: CITALOPRAM HYDROBROMIDE 20 MG TAB PO SCH (09:37)
[2017-08-16] MEDS: HEPARIN SODIUM - SQ 10,000 UNITS/ML VIAL SQ SCH ×2 (09:37→20:31)
[2017-08-16] MEDS: SODIUM CHLORIDE 0.9% FLUSH 10 ML FLUSH IV FLUSH SCH ×2 (09:38→20:31)
[2017-08-16] MEDS: POTASSIUM CHLOR 20 MEQ PREMIX 100 ML IV SCH ×2 (09:38→10:30)
[2017-08-16] MEDS: METOPROLOL TARTRATE 25 MG TAB PO SCH ×2 (09:39→20:31)
[2017-08-16] MEDS: PRAVASTATIN SOD 40 MG TAB PO SCH (09:39)
[2017-08-16] MEDS: CYCLOBENZAPRINE HCL 10 MG TAB PO SCH ×3 (09:39→18:41)
[2017-08-16] MEDS: DOCUSATE SODIUM 50 MG/SENNA 8.6 MG TAB PO SCH ×2 (09:39→20:31)
[2017-08-16] MEDS: DILTIAZEM HCL 60 MG TAB PO SCH ×4 (09:39→20:31)
[2017-08-16] MEDS: FUROSEMIDE 20 MG/2 ML VIAL IV PUSH SCH ×2 (09:39→18:41)
--- NOTE | 2017-08-16 11:28 | HHI.PR ---
Subjective Subjective Remarks resting in the bed awake, responsive in decreased appetite (Geovanna Roy) Review of Systems Constitutional Constitutional: Fatigue, Weakness Constitutional Remarks 10 point ROS done positives noted (Geovanna Roy) Integumentary Skin Remarks Dry, pale (Geovanna Roy) Neurologic Neurologic Remarks more awake today (Geovanna Ryo) Psychiatric Psychiatric: Anxiety (mild,knows cancer is back) (Geovanna Roy) Vitals/Results Vital Signs Vital Signs Date Time Temp Pulse Resp B/P (MAP) Pulse Ox O2 Delivery O2 Flow Rate FiO2 08/16/17 07:52 97 18 148/81 (103) 97 08/16/17 06:00 92 08/16/17 05:03 98.1 80 18 142/84 (103) 100 08/16/17 05:00 90 08/16/17 04:00 86 08/16/17 03:00 92 08/16/17 02:00 90 08/16/17 01:00 90 08/16/17 00:00 92 08/15/17 23:00 92 08/15/17 22:43 98.3 84 18 142/79 (100) 100 08/15/17 22:00 92 08/15/17 21:00 94 08/15/17 20:07 98.1 97 18 129/73 (91) 100 08/15/17 20:00 102 08/15/17 19:00 91 08/15/17 18:00 90 08/15/17 17:00 91 08/15/17 16:02 96 08/15/17 15:00 96 08/15/17 15:00 98.4 90 16 130/72 (91) 95 08/15/17 14:10 103 08/15/17 13:00 106 08/15/17 12:00 108 (Geovanna Roy) CBC/BMP: 08/16/17 0456 08/16/17 0456 Lab Results Laboratory Tests Test 08/16/17 04:56 White Blood Count 11.8 TH/MM3 Red Blood Count 3.60 MIL/MM3 Hemoglobin 10.3 GM/DL Hematocrit 30.0 % Mean Corpuscular Volume 83.2 FL Mean Corpuscular Hemoglobin 28.5 PG Mean Corpuscular Hemoglobin Concent 34.3 % Red Cell Distribution Width 14.1 % Platelet Count 284 TH/MM3 Mean Platelet Volume 9.2 FL Blood Urea Nitrogen 56 MG/DL Creatinine 3.52 MG/DL Random Glucose 92 MG/DL Calcium Level 9.5 MG/DL Sodium Level 133 MEQ/L Potassium Level 2.8 MEQ/L Chloride Level 95 MEQ/L Carbon Dioxide Level 26.8 MEQ/L Anion Gap 11 MEQ/L Estimat Glomerular Filtration Rate 13 ML/MIN Imaging Remarks Last Impressions Liver Biopsy CT 08/14/17 0000 Signed Impressions: Service Date/Time: Monday, August 14, 2017 11:03 - CONCLUSION: Uncomplicated CT guided biopsy. Maverick Pichardo MD Chest X-Ray 08/14/17 0000 Signed Impressions: Service Date/Time: Monday, August 14, 2017 16:47 - CONCLUSION: 1. Cardiomegaly. No acute abnormality. Rashel Henderson MD Abdomen/Pelvis CT 08/11/17 1510 Signed Impressions: Service Date/Time: Friday, August 11, 2017 15:39 - CONCLUSION: 1. Multiple new ill-defined low-attenuation lesions in the liver characteristic of metastatic disease. There is new ascitic fluid as well. 2. Multiple subtle scattered lytic osseous lesions most characteristic of metastatic disease. 3. The uterus is more prominent than on the prior study with ill-defined masslike areas along the posterior aspect. The uterus is not well defined from the surrounding bowel secondary to lack of contrast. 4. Bilateral moderate to severe hydronephrosis. There is dilatation of both ureters. 5. Bladder wall thickening involving the posterior and superior aspects of the bladder which is new from the prior study. This is nonspecific but of concern for possible tumor given the bilateral hydronephrosis. Marshal Ayala MD Head CT 08/11/17 1312 Signed Impressions: Service Date/Time: Friday, August 11, 2017 15:32 - CONCLUSION: Negative trauma CT Marshal Ayala MD Current Medications Administered Medications Medications (Trade) Dose Ordered Sig/Joshua Route PRN Reason Start Time Stop Time Status Last Admin Dose Admin Citalopram Hydrobromide (CeleXA) 10 mg DAILY PO 08/12/17 09:00 08/16/17 09:37 Cyclobenzaprine HCl (Flexeril) 10 mg TID PO 08/11/17 18:00 08/16/17 09:39 Pravastatin Sodium (Pravachol) 40 mg DAILY PO 08/12/17 09:00 08/16/17 09:39 Sodium Chloride (NS Flush) 2 ml BID IV FLUSH 08/11/17 21:00 08/16/17 09:38 Heparin Sodium (Porcine) (Heparin Inj) 5,000 units Q12H SQ 08/11/17 20:00 08/16/17 09:37 Senna/Docusate Sodium (Gisselle-Colace) 1 tab BID PO 08/11/17 21:00 08/16/17 09:39 Furosemide (Lasix Inj) 20 mg BID@ IV PUSH 08/11/17 18:00 08/16/17 09:39 Hydralazine HCl (Apresoline) 50 mg Q4HR PRN PO SBP>160, DBP>90 08/11/17 17:30 08/12/17 23:51 Morphine Sulfate (Morphine Inj) 3 mg Q3H PRN IV PUSH pain 3-10 08/11/17 18:00 08/12/17 23:51 Sodium Chloride 1,000 ml @ 42 mls/hr [id number] IV 08/12/17 13:00 08/15/17 12:27 Acetaminophen (Tylenol) 650 mg Q4H PRN PO PAIN SCALE 1 TO 4 08/12/17 16:00 08/14/17 20:40 Acetaminophen/ Hydrocodone Bitart ([place] 5-325 Mg) 1 tab Q4H PRN PO PAIN SCALE 5 TO 10 08/12/17 16:00 08/14/17 04:09 Ondansetron HCl (Zofran Inj) 4 mg Q4H PRN IV PUSH NAUSEA 08/13/17 05:45 08/13/17 07:37 Diltiazem HCl (Cardizem) 60 mg QID PO 08/15/17 13:00 08/16/17 09:39 Metoprolol Tartrate (Lopressor) 25 mg Q12HR PO 08/15/17 21:00 08/16/17 09:39 Potassium Chloride 100 ml @ 50 mls/hr Q2H IV 08/16/17 08:30 08/16/17 12:29 08/16/17 09:38 (Geovanna Roy. ADULT LITERACY INSTRUCTOR) Physical Exam General General Appearance: No Acute Distress, Comfortable, Pale Appearance Remarks Weak, but more alert, decreased appetite (Geovanna Roy M. ADULT LITERACY INSTRUCTOR) Eyes Eye Exam: Pupils Equal, Pupils Reactive (Fiona Royan M. ADULT LITERACY INSTRUCTOR) Ears & Nose Ears & Nose Exam: Nasal Mucosa [place] (Geovanna Roy M. ADULT LITERACY INSTRUCTOR) Throat Throat Exam: Oral Mucosa [place] & Moist (Geovanna Roy M. ADULT LITERACY INSTRUCTOR) Neck Neck Exam: Neck Supple, Trachea Midline (Geovanna Roy M. ADULT LITERACY INSTRUCTOR) Pulmonary Resp Exam: Diminished Breath Sounds (Geovanna Roy M. ADULT LITERACY INSTRUCTOR) Cardiology CV Exam: Regular CV Remarks pulse 90s (Geovanna Roy M. ADULT LITERACY INSTRUCTOR) Gastrointestinal/Abdomen GI Exam: Soft, Non-Tender, Bowel Sounds Present, Non-Distended GI Remarks Soft taut, nontender, (Geovanna Roy M. ADULT LITERACY INSTRUCTOR) Musculoskeletal MS Exam: Joints Intact MS Remarks (Geovanna Roy M. ADULT LITERACY INSTRUCTOR) Integumentary Skin Exam: Warm, Dry (Geovanna Roy M. ADULT LITERACY INSTRUCTOR) Extremeties Extremities Exam: Trace Edema (Geovanna Roy M. ADULT LITERACY INSTRUCTOR) Neurologic Neuro Exam: Alert, Awake, Oriented (Fiona Royan M. ADULT LITERACY INSTRUCTOR) Psychiatric Psych Exam: Appropriate Responses (Geovanna Roy M. ADULT LITERACY INSTRUCTOR) VTE Prophylaxis VTE Prophylaxis Device: SCDs VTE Prophylaxis Meds: Heparin (Geovanna Roy M. ADULT LITERACY INSTRUCTOR) Assessment/Plan Problem List: (1) Hydronephrosis ICD Codes: N13.30 - Unspecified hydronephrosis Status: Acute (2) Renal failure ICD Codes: N19 - Unspecified kidney failure Status: Acute (3) UTI (lower urinary tract infection) ICD Codes: N39.0 - UTI (lower urinary tract infection) Status: Acute (4) Serum calcium elevated ICD Codes: E83.52 - Hypercalcemia Status: Acute (5) Breast cancer ICD Codes: C50.919 - Breast cancer Status: Chronic (6) Hypercalcemia ICD Codes: E83.52 - Hypercalcemia Status: Acute (7) metastatic liver lesions Status: Acute (8) Anemia ICD Codes: D64.9 - Anemia Status: Acute (9) Sinus tachycardia ICD Codes: R00.0 - Tachycardia, unspecified Status: Acute (10) Accelerated essential hypertension ICD Codes: I10 - Essential (primary) hypertension Status: Acute Assessment/Plan Vital signs reviewed, afebrile BP trend 148/81 Labs reviewed, hypokalemia severe, by mouth and IV potassium ordered and will recheck labs around 1400, monitoring her hypercalcemia, acute kidney injury, electrolytes, leukocytosis mild Continue IV hydration, monitoring bowel regimen Bilat hydronephrosis Bladder wall thickening per CT findings, poss malignancy 08/12 s/p cystoscopy, bilateral retrograde pyelogram, bilateral ureteral stent insertion appreciate urology and renal input monitor I/O and encourage PO fluids and food. Hx of breast cancer CT abdomen, 08/11 shows multiple new ill-defined low-attenuation lesions in the liver characteristic of metastatic disease. has multiple subtle scattered lytic osseous lesions. oncology following for plan of care -s/p liver bx in IR 08/14, . Results show mammary carcinoma Hypertension uncontrolled initially, BP now 148/81, hydralazine if needed for blood pressure control Tachycardia resolved heart rate stable in the 90s Physical debility Physical therapy assisting with strengthening, and out of bed daily, patient and considering rehab, SNF level to strengthen. DVT prophylaxis heparin PUD prophylaxis, Pepcid Condition guarded, serious Discharge planning, once final test results and plan a care are initiated for outpatient, case management already involved, could benefit from support of Palliative care in the future. Patient states she is not planning on any other treatment plan from cancer perspective. D/W RN D/W Dr. Mejias, seen on his behalf D/W pt (Geovanna Roy) Assessment/Plan seen, examined by myself, Dr Mejias, today Discussed with patient Discussed with nurse Liver biopsy shows malignancy, likely secondary to metastatic breast cancer Pending hormone receptor status Possible chemotherapy after her renal function and activity status improves Discussed with mid level provider The exam, history, and the medical decision-making described in the above note were completed with the assistance of the mid-level provider. I reviewed the findings presented. I attest that I had a [id number] encounter with the patient on the same day, and personally performed and documented my assessment and findings in the medical record. (Anthony Mejias MD) Problem Qualifiers (1) Hydronephrosis: Qualified Codes: N13.2 - Hydronephrosis with renal and ureteral calculous obstruction (2) Renal failure: Qualified Codes: N17.9 - Acute kidney failure, unspecified (3) Breast cancer: (4) Anemia: Geovanna Roy Aug 16, 2017 11:28 Anthony Mejias MD Aug 16, 2017 16:40
--- NOTE | 2017-08-16 11:38 | PD.ONC.PN ---
Subjective Subjective Remarks Afebrile Pt resting in bed in no acute distress. Pt's and daughter at bedside. Objective Data Date Time Temp Pulse Resp B/P (MAP) Pulse Ox O2 Delivery O2 Flow Rate FiO2 08/16/17 07:52 97 18 148/81 (103) 97 08/16/17 06:00 92 08/16/17 05:03 98.1 80 18 142/84 (103) 100 08/16/17 05:00 90 08/16/17 04:00 86 08/16/17 03:00 92 08/16/17 02:00 90 08/16/17 01:00 90 08/16/17 00:00 92 08/15/17 23:00 92 08/15/17 22:43 98.3 84 18 142/79 (100) 100 08/15/17 22:00 92 08/15/17 21:00 94 08/15/17 20:07 98.1 97 18 129/73 (91) 100 08/15/17 20:00 102 08/15/17 19:00 91 08/15/17 18:00 90 08/15/17 17:00 91 08/15/17 16:02 96 08/15/17 15:00 96 08/15/17 15:00 98.4 90 16 130/72 (91) 95 08/15/17 14:10 103 08/15/17 13:00 106 08/15/17 12:00 108 08/16/17 08/16/17 08/16/17 07:00 15:00 23:00 Intake Total 480 ml Output Total 1700 ml Balance -1220 ml Result Diagram: 08/16/17 0456 08/16/17 0456 Laboratory Results Laboratory Tests Test 08/16/17 04:56 White Blood Count 11.8 TH/MM3 Red Blood Count 3.60 MIL/MM3 Hemoglobin 10.3 GM/DL Hematocrit 30.0 % Mean Corpuscular Volume 83.2 FL Mean Corpuscular Hemoglobin 28.5 PG Mean Corpuscular Hemoglobin Concent 34.3 % Red Cell Distribution Width 14.1 % Platelet Count 284 TH/MM3 Mean Platelet Volume 9.2 FL Blood Urea Nitrogen 56 MG/DL Creatinine 3.52 MG/DL Random Glucose 92 MG/DL Calcium Level 9.5 MG/DL Sodium Level 133 MEQ/L Potassium Level 2.8 MEQ/L Chloride Level 95 MEQ/L Carbon Dioxide Level 26.8 MEQ/L Anion Gap 11 MEQ/L Estimat Glomerular Filtration Rate 13 ML/MIN Administered Medications Medications (Trade) Dose Ordered Sig/Joshua Route PRN Reason Start Time Stop Time Status Last Admin Dose Admin Citalopram Hydrobromide (CeleXA) 10 mg DAILY PO 08/12/17 09:00 08/16/17 09:37 Cyclobenzaprine HCl (Flexeril) 10 mg TID PO 08/11/17 18:00 08/16/17 09:39 Pravastatin Sodium (Pravachol) 40 mg DAILY PO 08/12/17 09:00 08/16/17 09:39 Sodium Chloride (NS Flush) 2 ml BID IV FLUSH 08/11/17 21:00 08/16/17 09:38 Heparin Sodium (Porcine) (Heparin Inj) 5,000 units Q12H SQ 08/11/17 20:00 08/16/17 09:37 Senna/Docusate Sodium (Gisselle-Colace) 1 tab BID PO 08/11/17 21:00 08/16/17 09:39 Furosemide (Lasix Inj) 20 mg BID@09,18 IV PUSH 08/11/17 18:00 08/16/17 09:39 Hydralazine HCl (Apresoline) 50 mg Q4HR PRN PO SBP>160, DBP>90 08/11/17 17:30 08/12/17 23:51 Morphine Sulfate (Morphine Inj) 3 mg Q3H PRN IV PUSH pain 3-10 08/11/17 18:00 08/12/17 23:51 Sodium Chloride 1,000 ml @ 42 mls/hr [id number] IV 08/12/17 13:00 08/15/17 12:27 Acetaminophen (Tylenol) 650 mg Q4H PRN PO PAIN SCALE 1 TO 4 08/12/17 16:00 08/14/17 20:40 Acetaminophen/ Hydrocodone Bitart ([place] 5-325 Mg) 1 tab Q4H PRN PO PAIN SCALE 5 TO 10 08/12/17 16:00 08/14/17 04:09 Ondansetron HCl (Zofran Inj) 4 mg Q4H PRN IV PUSH NAUSEA 08/13/17 05:45 08/13/17 07:37 Diltiazem HCl (Cardizem) 60 mg QID PO 08/15/17 13:00 08/16/17 09:39 Metoprolol Tartrate (Lopressor) 25 mg Q12HR PO 08/15/17 21:00 08/16/17 09:39 Potassium Chloride 100 ml @ 50 mls/hr Q2H IV 08/16/17 08:30 08/16/17 12:29 08/16/17 09:38 Objective Remarks GENERAL: Elderly female lying in bed in no acute distress. SKIN: Warm and dry. HEAD: Normocephalic. EYES: No injection or drainage. NECK: Supple, trachea midline CARDIOVASCULAR: +S1/S2 RESPIRATORY: Clear anteriorly. Breathing unlabored. GASTROINTESTINAL: Abdomen soft, non-tender, nondistended. EXTREMITIES: No cyanosis NEUROLOGICAL: Reports she was hallucinating early this morning but is currently alert and oriented Assessment/Plan Problem List: (1) Breast cancer ICD Codes: C50.919 - Breast cancer Status: Chronic Plan: -- Biopsy of liver lesion done 08/14; results show metastatic non-small cell cancer consistent with breast primary --had a high-risk breast cancer at the time of her diagnosis. --presented with locally advanced stage III, [id number] right breast cancer, invasive ductal carcinoma which was estrogen receptor positive 72%, progesterone receptor positive 57% HER2/arslan negative. --received adjuvant systemic chemotherapy after a right mastectomy could only tolerate 7 out of 12 weeks of Taxol. placed on adjuvant hormonal therapy with Arimidex and switched to letrozole subsequently. --last seen by Dr. Curiel on March 08, 2017. She was advised to continue on letrozole. --CT abdomen, 08/11 shows multiple new ill-defined low-attenuation lesions in the liver characteristic of metastatic disease. has multiple subtle scattered lytic osseous lesions. (2) Hydronephrosis ICD Codes: N13.30 - Unspecified hydronephrosis Status: Acute Plan: --CT abdomen showed moderate to severe hydronephrosis. There is dilatation both ureters, the bladder wall thickening involving the posterior and superior aspect of the bladder is new. Possible tumor is considered. --cystoscopy on 08/12 showed no bladder mass. (3) Hypercalcemia ICD Codes: E83.52 - Hypercalcemia Status: Acute Plan: --receiving IVF --s/p pamidronate 08/13 -- Improving (4) Renal failure ICD Codes: N19 - Unspecified kidney failure Status: Acute Assessment 76y/o female with h/o breast cancer, admitted with weakness and dizziness. Oncology consulted for suspected metastatic disease due to new findings of liver lesions. h/o locally advanced right breast cancer status post mastectomy. Urinary frequency. Bilateral hydronephrosis. Acute renal failure. Hypertension. Spinal stenosis. Macular degeneration. Degenerative disk disease. Chronic back pain Plan 1. Discussed with patient and her family the diagnosis of stage IV breast cancer. 2. We have asked pathology to test the liver sample for hormone markers 3. We will hold off on chemotherapy until the patient's performance status and renal function has improved 4. Supportive care Attending Statement The exam, history, and the medical decision-making described in the above note were completed with the assistance of the mid-level provider. I reviewed and agree with the findings presented. I attest that I had a [id number] encounter with the patient on the same day, and personally performed and documented my assessment and findings in the medical record. Feeling better. Ca trended down to normal. Renal function improved. Extensive discussion with pt regarding the path result which showed mets breast cancer. Will have pathology do ER/MD/HER2 studies. Will consider chemotx vs endocrine therapy depending on the hormone receptors and HER2 studies. Continue supportive cares. Problem Qualifiers (1) Breast cancer: (2) Hydronephrosis: Qualified Codes: N13.2 - Hydronephrosis with renal and ureteral calculous obstruction (3) Renal failure: Qualified Codes: N17.9 - Acute kidney failure, unspecified Yancy Liu Aug 16, 2017 11:38 Jonnie Curiel MD Aug 16, 2017 14:24
[2017-08-16] MEDS: SODIUM CHLOR 0.9% 1000 ML INJ 1,000 ML IV SCH ×2 (12:16→20:28)
--- NOTE | 2017-08-16 18:26 | HHI.NPPN ---
Subjective History of Present Illness 76-year-old female with past medical history of hypertension, hyperlipidemia, spinal stenosis, macular degeneration, and breast cancer who came to the hospital with complaint of recurrent falls and generalized weakness. I was called to see the patient because of elevated BUN and creatinine. Additional Remarks Patient is alert, no SOB, sitting on chair, no SOB. Objective Data Data 08/16/17 08/17/17 19:00 07:00 Intake Total 100 ml Output Total 800 ml Balance -700 ml IV Total 100 ml Output Urine Total 800 ml Vital Signs Date Time Temp Pulse Resp B/P (MAP) Pulse Ox O2 Delivery O2 Flow Rate FiO2 08/16/17 17:03 98.4 97 16 111/79 (90) 96 08/16/17 13:38 83 08/16/17 12:41 88 08/16/17 11:40 98.1 79 18 135/77 (96) 96 08/16/17 09:40 98 08/16/17 07:52 97 18 148/81 (103) 97 08/16/17 06:00 92 08/16/17 05:03 98.1 80 18 142/84 (103) 100 08/16/17 05:00 90 08/16/17 04:00 86 08/16/17 03:00 92 08/16/17 02:00 90 08/16/17 01:00 90 08/16/17 00:00 92 08/15/17 23:00 92 08/15/17 22:43 98.3 84 18 142/79 (100) 100 08/15/17 22:00 92 08/15/17 21:00 94 08/15/17 20:07 98.1 97 18 129/73 (91) 100 08/15/17 20:00 102 08/15/17 19:00 91 -: 08/16/17 0456 08/16/17 1513 Physical Exam General Appearance: No Acute Distress, Comfortable, Pale Eyes Eye Exam: Pupils Equal, Pupils Reactive Ears & Nose Ears & Nose Exam: Nasal Mucosa [place] Throat Throat Exam: Oral Mucosa [place] & Moist Neck Neck Exam: Neck Supple, Trachea Midline Pulmonary Resp Exam: Diminished Breath Sounds Cardiology CV Exam: Regular Gastrointestinal/Abdomen GI Exam: Soft, Non-Tender, Bowel Sounds Present, Non-Distended Musculoskeletal MS Exam: Joints Intact Integumentary Skin Exam: Warm, Dry Extremeties Extremities Exam: Trace Edema Neurologic Neuro Exam: Alert, Awake, Oriented Psychiatric Psych Exam: Appropriate Responses VTE Prophylaxis Device: SCDs Assessment/Plan Assessment Summary: PRATIK/Acute Renal Failure Electrolyte Assessment: Hypercalcemia Problem List: (1) Hydronephrosis ICD Codes: N13.30 - Unspecified hydronephrosis Status: Acute (2) Breast cancer ICD Codes: C50.919 - Breast cancer Status: Chronic (3) Serum calcium elevated ICD Codes: E83.52 - Hypercalcemia Status: Acute (4) Anemia ICD Codes: D64.9 - Anemia Status: Acute (5) UTI (lower urinary tract infection) ICD Codes: N39.0 - UTI (lower urinary tract infection) Status: Acute (6) Renal failure ICD Codes: N19 - Unspecified kidney failure Status: Acute Plan Patient has cystoscopy and bilateral stent done. Has hematuria. BUN and Creatinine improving. Urine out put is good. Continue IVF and encourage oral fluid intake. Avoid Nephrotoxins and follow the urine out put and BMP. Creatinine now 3.5, was 1.0 in 2015. May have some permanent damage to renal function. K was low and replaced. Continue IVF and encourage oral intake. Problem Qualifiers (1) Hydronephrosis: Qualified Codes: N13.2 - Hydronephrosis with renal and ureteral calculous obstruction (2) Breast cancer: (3) Anemia: (4) Renal failure: Qualified Codes: N17.9 - Acute kidney failure, unspecified Aly Rich MD Aug 16, 2017 18:26
[2017-08-17] VITALS (10 sets, daily range): BP systolic 102–139; BP diastolic 52–73; PULSE 66–91; RESP 17–20; TEMP 96.9–100.1; O2SAT 96–99
[2017-08-17] MEDS: SODIUM CHLORIDE 0.9% FLUSH 10 ML FLUSH IV FLUSH SCH ×2 (09:00→21:24)
[2017-08-17] MEDS: DOCUSATE SODIUM 50 MG/SENNA 8.6 MG TAB PO SCH ×2 (09:00→21:23)
[2017-08-17] MEDS: POTASSIUM CHLORIDE 20 MEQ CONTROLLED RELEASE TAB PO SCH (09:02)
[2017-08-17] MEDS: DILTIAZEM HCL 60 MG TAB PO SCH ×3 (09:02→16:35)
[2017-08-17] MEDS: METOPROLOL TARTRATE 25 MG TAB PO SCH ×2 (09:03→21:23)
[2017-08-17] MEDS: PRAVASTATIN SOD 40 MG TAB PO SCH (09:03)
[2017-08-17] MEDS: CITALOPRAM HYDROBROMIDE 20 MG TAB PO SCH (09:03)
[2017-08-17] MEDS: CYCLOBENZAPRINE HCL 10 MG TAB PO SCH ×3 (09:03→16:35)
[2017-08-17] MEDS: FUROSEMIDE 20 MG/2 ML VIAL IV PUSH SCH ×2 (09:03→16:35)
[2017-08-17] MEDS: HEPARIN SODIUM - SQ 10,000 UNITS/ML VIAL SQ SCH ×2 (09:04→21:23)
--- NOTE | 2017-08-17 09:47 | HHI.NPPN ---
Subjective History of Present Illness 76-year-old female with past medical history of hypertension, hyperlipidemia, spinal stenosis, macular degeneration, and breast cancer who came to the hospital with complaint of recurrent falls and generalized weakness. I was called to see the patient because of elevated BUN and creatinine. Additional Remarks Patient is alert, no SOB, eating well, not in distress. Objective Data Data Vital Signs Date Time Temp Pulse Resp B/P (MAP) Pulse Ox O2 Delivery O2 Flow Rate FiO2 08/17/17 06:17 98.1 78 17 120/52 (74) 97 08/17/17 04:00 69 08/17/17 01:33 76 08/17/17 00:50 96.9 76 18 107/53 (71) 96 08/17/17 00:00 66 08/16/17 23:30 97.9 72 20 115/70 (85) 97 08/16/17 23:00 98 08/16/17 22:00 98 08/16/17 21:00 90 08/16/17 20:00 86 08/16/17 20:00 98.1 93 20 127/73 (91) 97 08/16/17 19:00 102 08/16/17 17:03 98.4 97 16 111/79 (90) 96 08/16/17 13:38 83 08/16/17 12:41 88 08/16/17 11:40 98.1 79 18 135/77 (96) 96 -: 08/16/17 0456 08/16/17 1513 Physical Exam General Appearance: No Acute Distress, Comfortable, Pale Eyes Eye Exam: Pupils Equal, Pupils Reactive Ears & Nose Ears & Nose Exam: Nasal Mucosa [place] Throat Throat Exam: Oral Mucosa [place] & Moist Neck Neck Exam: Neck Supple, Trachea Midline Pulmonary Resp Exam: Diminished Breath Sounds Cardiology CV Exam: Regular Gastrointestinal/Abdomen GI Exam: Soft, Non-Tender, Bowel Sounds Present, Non-Distended Musculoskeletal MS Exam: Joints Intact Integumentary Skin Exam: Warm, Dry Extremeties Extremities Exam: Trace Edema Neurologic Neuro Exam: Alert, Awake, Oriented Psychiatric Psych Exam: Appropriate Responses VTE Prophylaxis Device: SCDs Assessment/Plan Assessment Summary: PRATIK/Acute Renal Failure Electrolyte Assessment: Hypercalcemia Problem List: (1) Hydronephrosis ICD Codes: N13.30 - Unspecified hydronephrosis Status: Acute (2) Breast cancer ICD Codes: C50.919 - Breast cancer Status: Chronic (3) Serum calcium elevated ICD Codes: E83.52 - Hypercalcemia Status: Acute (4) Anemia ICD Codes: D64.9 - Anemia Status: Acute (5) UTI (lower urinary tract infection) ICD Codes: N39.0 - UTI (lower urinary tract infection) Status: Acute (6) Renal failure ICD Codes: N19 - Unspecified kidney failure Status: Acute Plan Patient has cystoscopy and bilateral stent done. Has hematuria. BUN and Creatinine improving. Urine out put is good. Continue IVF and encourage oral fluid intake. Avoid Nephrotoxins and follow the urine out put and BMP. Creatinine has been improving, no BMP today. May have some permanent damage to renal function. Continue IVF and encourage oral intake. Oncology following for possible metastatic Breast Cancer. Problem Qualifiers (1) Hydronephrosis: Qualified Codes: N13.2 - Hydronephrosis with renal and ureteral calculous obstruction (2) Breast cancer: (3) Anemia: (4) Renal failure: Qualified Codes: N17.9 - Acute kidney failure, unspecified Aly Rich MD Aug 17, 2017 09:47
--- NOTE | 2017-08-17 12:05 | PD.ONC.PN ---
Subjective Subjective Remarks Afebrile overnight. Patient resting in bed in nad. and at bedside. Objective Data Date Time Temp Pulse Resp B/P (MAP) Pulse Ox O2 Delivery O2 Flow Rate FiO2 08/17/17 06:17 98.1 78 17 120/52 (74) 97 08/17/17 04:00 69 08/17/17 01:33 76 08/17/17 00:50 96.9 76 18 107/53 (71) 96 08/17/17 00:00 66 08/16/17 23:30 97.9 72 20 115/70 (85) 97 08/16/17 23:00 98 08/16/17 22:00 98 08/16/17 21:00 90 08/16/17 20:00 86 08/16/17 20:00 98.1 93 20 127/73 (91) 97 08/16/17 19:00 102 08/16/17 17:03 98.4 97 16 111/79 (90) 96 08/16/17 13:38 83 08/16/17 12:41 88 08/17/17 08/17/17 08/17/17 07:00 15:00 23:00 Intake Total 260 ml Output Total 950 ml Balance -690 ml Result Diagram: 08/16/17 0456 08/16/17 1513 Laboratory Results Laboratory Tests Test 08/16/17 15:13 Potassium Level 3.7 MEQ/L Administered Medications Medications (Trade) Dose Ordered Sig/Joshua Route PRN Reason Start Time Stop Time Status Last Admin Dose Admin Citalopram Hydrobromide (CeleXA) 10 mg DAILY PO 08/12/17 09:00 08/17/17 09:03 Cyclobenzaprine HCl (Flexeril) 10 mg TID PO 08/11/17 18:00 08/17/17 09:03 Pravastatin Sodium (Pravachol) 40 mg DAILY PO 08/12/17 09:00 08/17/17 09:03 Sodium Chloride (NS Flush) 2 ml BID IV FLUSH 08/11/17 21:00 08/16/17 20:31 Heparin Sodium (Porcine) (Heparin Inj) 5,000 units Q12H SQ 08/11/17 20:00 08/17/17 09:04 Senna/Docusate Sodium (Gisselle-Colace) 1 tab BID PO 08/11/17 21:00 08/16/17 20:31 Furosemide (Lasix Inj) 20 mg BID@09,18 IV PUSH 08/11/17 18:00 08/17/17 09:03 Hydralazine HCl (Apresoline) 50 mg Q4HR PRN PO SBP>160, DBP>90 08/11/17 17:30 08/12/17 23:51 Morphine Sulfate (Morphine Inj) 3 mg Q3H PRN IV PUSH pain 3-10 08/11/17 18:00 08/12/17 23:51 Sodium Chloride 1,000 ml @ 42 mls/hr [id number] IV 08/12/17 13:00 08/16/17 20:28 Acetaminophen (Tylenol) 650 mg Q4H PRN PO PAIN SCALE 1 TO 4 08/12/17 16:00 08/14/17 20:40 Acetaminophen/ Hydrocodone Bitart ([place] 5-325 Mg) 1 tab Q4H PRN PO PAIN SCALE 5 TO 10 08/12/17 16:00 08/14/17 04:09 Ondansetron HCl (Zofran Inj) 4 mg Q4H PRN IV PUSH NAUSEA 08/13/17 05:45 08/13/17 07:37 Potassium Chloride (KCl) 40 meq DAILY PO 08/16/17 09:00 08/17/17 09:02 Diltiazem HCl (Cardizem) 60 mg QID PO 08/15/17 13:00 08/17/17 09:02 Metoprolol Tartrate (Lopressor) 25 mg Q12HR PO 08/15/17 21:00 08/17/17 09:03 Objective Remarks GENERAL: Pleasant elderly female sitting up in bed in [facility]. SKIN: Warm and dry. HEAD: Normocephalic. EYES: No injection or drainage. NECK: Supple, trachea midline CARDIOVASCULAR: Regular rate and rhythm RESPIRATORY: anterior [place] clear. GASTROINTESTINAL: Abdomen soft, non-tender, nondistended. EXTREMITIES: No cyanosis NEUROLOGICAL: awake and alert and oriented. normal speech. Assessment/Plan Problem List: (1) Breast cancer ICD Codes: C50.919 - Breast cancer Status: Chronic Plan: -- Biopsy of liver lesion done 08/14; results show metastatic non-small cell cancer consistent with breast primary --We have asked pathology to test the liver sample for hormone markers --will hold off on chemotherapy until the patient's performance status and renal function has improved --had a high-risk breast cancer at the time of her diagnosis. --presented with locally advanced stage III, T2N2M0 right breast cancer, invasive ductal carcinoma which was estrogen receptor positive 72%, progesterone receptor positive 57% HER2/arslan negative. --received adjuvant systemic chemotherapy after a right mastectomy could only tolerate 7 out of 12 weeks of Taxol. placed on adjuvant hormonal therapy with Arimidex and switched to letrozole subsequently. --last seen by Dr. Curiel on March 08, 2017. She was advised to continue on letrozole. --CT abdomen, 08/11 shows multiple new ill-defined low-attenuation lesions in the liver characteristic of metastatic disease. has multiple subtle scattered lytic osseous lesions. (2) Hydronephrosis ICD Codes: N13.30 - Unspecified hydronephrosis Status: Acute Plan: --CT abdomen showed moderate to severe hydronephrosis. There is dilatation both ureters, the bladder wall thickening involving the posterior and superior aspect of the bladder is new. Possible tumor is considered. --cystoscopy on 08/12 showed no bladder mass. (3) Hypercalcemia ICD Codes: E83.52 - Hypercalcemia Status: Acute Plan: --receiving IVF --s/p pamidronate 08/13 -- Improving (4) Renal failure ICD Codes: N19 - Unspecified kidney failure Status: Acute Assessment 76y/o female with h/o breast cancer, admitted with weakness and dizziness. Oncology consulted for suspected metastatic disease due to new findings of liver lesions. h/o locally advanced right breast cancer status post mastectomy. Urinary frequency. Bilateral hydronephrosis. Acute renal failure. Hypertension. Spinal stenosis. Macular degeneration. Degenerative disk disease. Chronic back pain Plan 1. once discharged follow up in clinic 2. await hormone testing to decide on appropriate treatment 3. ok to d/c once nephrology clears patient Attending Statement The exam, history, and the medical decision-making described in the above note were completed with the assistance of the mid-level provider. I reviewed and agree with the findings presented. I attest that I had a [id number] encounter with the patient on the same day, and personally performed and documented my assessment and findings in the medical record.Feeling better. No significant pain. Await ER/MO/HER2 studies. Can be d/c once stable and f/u oncology clinic for treatment. Problem Qualifiers (1) Breast cancer: (2) Hydronephrosis: Qualified Codes: N13.2 - Hydronephrosis with renal and ureteral calculous obstruction (3) Renal failure: Qualified Codes: N17.9 - Acute kidney failure, unspecified Amy Toledo Aug 17, 2017 12:05 Jonnie Curiel MD Aug 17, 2017 15:22
--- NOTE | 2017-08-17 12:57 | HHI.PR ---
Subjective Subjective Remarks Resting in the bed Awake more alert, Complaints of constipation, not sure about Timespan Friends in the room Afebrile Nausea, some mild abdominal pain, decreased appetite (Geovanna Roy) Review of Systems Constitutional Constitutional: Fatigue, Weakness Constitutional Remarks 10 point ROS done positives noted (Geovanna Roy) GI/Abdomen GI/Abdominal Exam: Nausea, Constipation GI/Abdomen Remarks Decreased appetite (Geovanna Roy) Musculoskeletal MS: Weakness (Geovanna Roy) Integumentary Skin Remarks Dry, pale (Geovanna Roy) Neurologic Neurologic Remarks more awake today (Geovanna Roy) Psychiatric Psychiatric: Normal Mood (pleasant), Anxiety (mild,knows cancer is back) (Geovanna Roy) Vitals/Results Vital Signs Vital Signs Date Time Temp Pulse Resp B/P (MAP) Pulse Ox O2 Delivery O2 Flow Rate FiO2 08/17/17 06:17 98.1 78 17 120/52 (74) 97 08/17/17 04:00 69 08/17/17 01:33 76 08/17/17 00:50 96.9 76 18 107/53 (71) 96 08/17/17 00:00 66 08/16/17 23:30 97.9 72 20 115/70 (85) 97 08/16/17 23:00 98 08/16/17 22:00 98 08/16/17 21:00 90 08/16/17 20:00 86 08/16/17 20:00 98.1 93 20 127/73 (91) 97 08/16/17 19:00 102 08/16/17 17:03 98.4 97 16 111/79 (90) 96 08/16/17 13:38 83 (Geovanna Roy) CBC/BMP: 08/16/17 0456 08/16/17 1513 Lab Results Laboratory Tests Test 08/16/17 15:13 Potassium Level 3.7 MEQ/L Current Medications Administered Medications Medications (Trade) Dose Ordered Sig/Joshua Route PRN Reason Start Time Stop Time Status Last Admin Dose Admin Citalopram Hydrobromide (CeleXA) 10 mg DAILY PO 08/12/17 09:00 08/17/17 09:03 Cyclobenzaprine HCl (Flexeril) 10 mg TID PO 08/11/17 18:00 08/17/17 13:03 Pravastatin Sodium (Pravachol) 40 mg DAILY PO 08/12/17 09:00 08/17/17 09:03 Sodium Chloride (NS Flush) 2 ml BID IV FLUSH 08/11/17 21:00 08/16/17 20:31 Heparin Sodium (Porcine) (Heparin Inj) 5,000 units Q12H SQ 08/11/17 20:00 08/17/17 09:04 Senna/Docusate Sodium (Gisselle-Colace) 1 tab BID PO 08/11/17 21:00 08/16/17 20:31 Furosemide (Lasix Inj) 20 mg BID@09,18 IV PUSH 08/11/17 18:00 08/17/17 09:03 Hydralazine HCl (Apresoline) 50 mg Q4HR PRN PO SBP>160, DBP>90 08/11/17 17:30 08/12/17 23:51 Morphine Sulfate (Morphine Inj) 3 mg Q3H PRN IV PUSH pain 3-10 08/11/17 18:00 08/12/17 23:51 Sodium Chloride 1,000 ml @ 42 mls/hr [id number] IV 08/12/17 13:00 08/16/17 20:28 Acetaminophen (Tylenol) 650 mg Q4H PRN PO PAIN SCALE 1 TO 4 08/12/17 16:00 08/14/17 20:40 Acetaminophen/ Hydrocodone Bitart ([place] 5-325 Mg) 1 tab Q4H PRN PO PAIN SCALE 5 TO 10 08/12/17 16:00 08/17/17 13:12 Ondansetron HCl (Zofran Inj) 4 mg Q4H PRN IV PUSH NAUSEA 08/13/17 05:45 08/13/17 07:37 Potassium Chloride (KCl) 40 meq DAILY PO 08/16/17 09:00 08/17/17 09:02 Diltiazem HCl (Cardizem) 60 mg QID PO 08/15/17 13:00 08/17/17 13:03 Metoprolol Tartrate (Lopressor) 25 mg Q12HR PO 08/15/17 21:00 08/17/17 09:03 (Geovanna RoyP) Physical Exam General General Appearance: No Acute Distress, Comfortable, Pale Appearance Remarks Slow improvement of Weakness, but more alert, decreased appetite (Geovanna Roy. TOURIST INFORMATION OFFICER) Eyes Eye Exam: Pupils Equal, Pupils Reactive (Geovanna Roy. TOURIST INFORMATION OFFICER) Ears & Nose Ears & Nose Exam: Nasal Mucosa [place] (Geovanna Roy. TOURIST INFORMATION OFFICER) Throat Throat Exam: Oral Mucosa [place] & Moist (Geovanna Roy TOURIST INFORMATION OFFICER) Neck Neck Exam: Neck Supple, Trachea Midline (Geovanna Roy TOURIST INFORMATION OFFICER) Pulmonary Resp Exam: Diminished Breath Sounds (Geovanna Roy. TOURIST INFORMATION OFFICER) Cardiology CV Exam: Regular CV Remarks pulse 90s (Geovanna Roy TOURIST INFORMATION OFFICER) Gastrointestinal/Abdomen GI Exam: Soft, Non-Tender, Bowel Sounds Present, Non-Distended GI Remarks Soft taut, nontender, bowel sounds soft (Geovanna Roy TOURIST INFORMATION OFFICER) Musculoskeletal MS Exam: Joints Intact MS Remarks (Geovanna RoyP) Integumentary Skin Exam: Warm, Dry (Geovanna Roy TOURIST INFORMATION OFFICER) Extremeties Extremities Exam: Trace Edema (Geovanna Roy. TOURIST INFORMATION OFFICER) Neurologic Neuro Exam: Alert, Awake, Oriented, Speech Clear, Moving All Extremities (Geovanna Roy. TOURIST INFORMATION OFFICER) Psychiatric Psych Exam: Appropriate Responses (Geovanna RoyP) VTE Prophylaxis VTE Prophylaxis Device: SCDs VTE Prophylaxis Meds: Heparin (Geovanna RoyP) Assessment/Plan Problem List: (1) Hydronephrosis ICD Codes: N13.30 - Unspecified hydronephrosis Status: Acute (2) Renal failure ICD Codes: N19 - Unspecified kidney failure Status: Acute (3) UTI (lower urinary tract infection) ICD Codes: N39.0 - UTI (lower urinary tract infection) Status: Acute (4) Serum calcium elevated ICD Codes: E83.52 - Hypercalcemia Status: Acute (5) Breast cancer ICD Codes: C50.919 - Breast cancer Status: Chronic (6) Hypercalcemia ICD Codes: E83.52 - Hypercalcemia Status: Acute (7) metastatic liver lesions Status: Acute (8) Anemia ICD Codes: D64.9 - Anemia Status: Acute (9) Sinus tachycardia ICD Codes: R00.0 - Tachycardia, unspecified Status: Acute (10) Accelerated essential hypertension ICD Codes: I10 - Essential (primary) hypertension Status: Acute Assessment/Plan Vital signs reviewed, trends normal Labs reviewed, hypokalemia resolved 3.7. leukocytosis mild , recheck cbc am. monitoring bowel regimen, complaints of constipation but unaware of how many days it's been. Dulcolax suppository today, if no results fleets enema this p.m.. Check for impaction Bilat hydronephrosis Bladder wall thickening per CT findings, malignancy found, metastatic disease originally from previous breast cancer 08/12 s/p cystoscopy, bilateral retrograde pyelogram, bilateral ureteral stent insertion appreciate urology and renal input, working towards improvement of function if patient wants any treatment. monitor I/O and encourage PO fluids and food. Encouraged small amounts of frequent feedings. Will add boost 3 times a day with meals, Hx of breast cancer CT abdomen, 08/11 shows multiple new ill-defined low-attenuation lesions in the liver characteristic of metastatic disease. has multiple subtle scattered lytic osseous lesions, which are non small cell carcinoma, original breast. oncology following for plan of care -s/p liver bx in IR 08/14, . Results show mammary carcinoma, Patient initially said no further treatment to ., Labs pending for treatment regimen. Will f/u in office after medically cleared. Spoke briefly with Taisha , update on plan of care, patient's daughter is very interested in patient taking more chemotherapy and possibly going to rehabilitation. Hypertension uncontrolled initially, BP more stable, hydralazine if needed for blood pressure control Tachycardia resolved, HR < 100 Physical debility Physical therapy assisting with strengthening, and out of bed daily, patient and considering rehab, SNF level to strengthen. DVT prophylaxis heparin PUD prophylaxis, Pepcid Monitoring labs Discharge planning, once final test results and plan a care are initiated for outpatient, case management already involved, could benefit from support of Palliative care in the future. D/W RN D/W Dr. Mejias, seen on his behalf D/W pt (Geovanna Roy) Assessment/Plan seen, examined by myself, Dr Mejias, today Discussed with patient, she seems to be without any distress Discharge to long term facility tomorrow Follow-up with oncology Follow-up with nephrology Prognosis appears to be poor with her combination of metastatic breast cancer and renal failure Discussed with mid level provider The exam, history, and the medical decision-making described in the above note were completed with the assistance of the mid-level provider. I reviewed the findings presented. I attest that I had a [id number] encounter with the patient on the same day, and personally performed and documented my assessment and findings in the medical record 40 minutes spent. (Anthony Mejias MD) Problem Qualifiers (1) Hydronephrosis: Qualified Codes: N13.2 - Hydronephrosis with renal and ureteral calculous obstruction (2) Renal failure: Qualified Codes: N17.9 - Acute kidney failure, unspecified (3) Breast cancer: (4) Anemia: Geovanna Roy Aug 17, 2017 12:57 Anthony Mejias MD Aug 17, 2017 18:19
[2017-08-17] MEDS: ACETAMINOPHEN/HYDROcodone 325 MG/5 MG TAB PO PRN ×3 (13:12→21:29)
[2017-08-17] MEDS ORDERED: SENN1TAB PO (17:26)
[2017-08-17] MEDS ORDERED: METO25TA3 PO (17:26)
[2017-08-17] MEDS ORDERED: HYDR-3583 PO (17:26)
[2017-08-17] MEDS ORDERED: SOD PHOSPHATE/SOD BIPHOSPHATE (ADULT) ENEMA 133ML RECTAL PRN (20:00)
[2017-08-18 00:02] VITALS: PULSE 72
[2017-08-18 04:00] VITALS: BP 108/56; PULSE 77; PULSE 84; RESP 20; TEMP 97.6; O2SAT 97
[2017-08-18 07:21] VITALS: PULSE 91
[2017-08-18 07:49] LABS: HEMATOCRIT 30.5 % (35.0-46.0); MEAN CELL VOLUME 84.6 FL (80.0-100.0); MEAN CORPUSCULAR HEMOGLOBIN 28.2 PG (27.0-34.0); MEAN CORPUSCULAR HGB CONC 33.3 % (32.0-36.0); PLATELET COUNT 319 TH/MM3 (150-450); RED CELL DISTRIBUTION WIDTH 14.4 % (11.6-17.2); REVIEW FLAG FINAL; WHITE BLOOD COUNT 10.9 TH/MM3 (4.0-11.0)
[2017-08-18 08:00] VITALS: BP 119/77; PULSE 88; RESP 20; TEMP 97.2; O2SAT 97
[2017-08-18] MEDS ORDERED: DILTIAZEM-CD 240 MG CAP ER PO SCH (09:00)
[2017-08-18] MEDS: CYCLOBENZAPRINE HCL 10 MG TAB PO SCH ×3 (09:51→17:28)
[2017-08-18] MEDS: METOPROLOL TARTRATE 25 MG TAB PO SCH (09:51)
[2017-08-18] MEDS: CITALOPRAM HYDROBROMIDE 20 MG TAB PO SCH (09:51)
[2017-08-18] MEDS: DOCUSATE SODIUM 50 MG/SENNA 8.6 MG TAB PO SCH (09:51)
[2017-08-18] MEDS: HEPARIN SODIUM - SQ 10,000 UNITS/ML VIAL SQ SCH (09:51)
[2017-08-18] MEDS: PRAVASTATIN SOD 40 MG TAB PO SCH (09:52)
[2017-08-18] MEDS: SODIUM CHLORIDE 0.9% FLUSH 10 ML FLUSH IV FLUSH SCH (09:52)
[2017-08-18] MEDS: POTASSIUM CHLORIDE 20 MEQ CONTROLLED RELEASE TAB PO SCH (09:52)
--- NOTE | 2017-08-18 10:51 | HHI.PR ---
Subjective Subjective Remarks Resting in the bed Awake, tires easily Generalized abdominal pain Decreased appetite continues, but no vomiting (Humera Roy) Review of Systems Constitutional Constitutional: Fatigue, Weakness Constitutional Remarks 10 point ROS done positives noted (Humera Roy) GI/Abdomen GI/Abdominal Exam: Nausea, Constipation (treated) GI/Abdomen Remarks Decreased appetite (Humera Roy) Musculoskeletal MS: Weakness (Humera Roy) Integumentary Skin Remarks Dry, pale (Humera Roy) Neurologic Neurologic Remarks more awake today (Humera Roy) Psychiatric Psychiatric: Normal Mood (pleasant), Anxiety (mild,knows cancer is back) (Humera Roy) Vitals/Results Vital Signs Vital Signs Date Time Temp Pulse Resp B/P (MAP) Pulse Ox O2 Delivery O2 Flow Rate FiO2 08/18/17 04:00 97.6 84 20 108/56 (73) 97 08/18/17 04:00 77 08/18/17 00:02 72 08/17/17 21:25 98.0 90 18 129/73 (91) 97 08/17/17 20:00 75 08/17/17 16:00 100.1 91 18 139/66 (90) 99 08/17/17 12:00 97.5 86 18 116/65 (82) 97 (Humera Roy) CBC/BMP: 08/18/17 0730 08/16/17 1513 Lab Results Laboratory Tests Test 08/18/17 07:30 White Blood Count 10.9 TH/MM3 Red Blood Count 3.60 MIL/MM3 Hemoglobin 10.2 GM/DL Hematocrit 30.5 % Mean Corpuscular Volume 84.6 FL Mean Corpuscular Hemoglobin 28.2 PG Mean Corpuscular Hemoglobin Concent 33.3 % Red Cell Distribution Width 14.4 % Platelet Count 319 TH/MM3 Mean Platelet Volume 8.6 FL Current Medications Administered Medications Medications (Trade) Dose Ordered Sig/Joshua Route PRN Reason Start Time Stop Time Status Last Admin Dose Admin Citalopram Hydrobromide (CeleXA) 10 mg DAILY PO 08/12/17 09:00 08/18/17 09:51 Cyclobenzaprine HCl (Flexeril) 10 mg TID PO 08/11/17 18:00 08/18/17 09:51 Pravastatin Sodium (Pravachol) 40 mg DAILY PO 08/12/17 09:00 08/18/17 09:52 Sodium Chloride (NS Flush) 2 ml BID IV FLUSH 08/11/17 21:00 08/18/17 09:52 Heparin Sodium (Porcine) (Heparin Inj) 5,000 units Q12H SQ 08/11/17 20:00 08/18/17 09:51 Senna/Docusate Sodium (Gisselle-Colace) 1 tab BID PO 08/11/17 21:00 08/18/17 09:51 Bisacodyl (Dulcolax Supp) 10 mg DAILY PRN RECTAL SEVERE CONSITIPATION 08/11/17 17:30 08/17/17 16:35 Hydralazine HCl (Apresoline) 50 mg Q4HR PRN PO SBP>160, DBP>90 08/11/17 17:30 08/12/17 23:51 Morphine Sulfate (Morphine Inj) 3 mg Q3H PRN IV PUSH pain 3-10 08/11/17 18:00 08/12/17 23:51 Acetaminophen (Tylenol) 650 mg Q4H PRN PO PAIN SCALE 1 TO 4 08/12/17 16:00 08/14/17 20:40 Acetaminophen/ Hydrocodone Bitart ([place] 5-325 Mg) 1 tab Q4H PRN PO PAIN SCALE 5 TO 10 08/12/17 16:00 08/17/17 21:29 Ondansetron HCl (Zofran Inj) 4 mg Q4H PRN IV PUSH NAUSEA 08/13/17 05:45 08/13/17 07:37 Potassium Chloride (KCl) 40 meq DAILY PO 08/16/17 09:00 08/18/17 09:52 Metoprolol Tartrate (Lopressor) 25 mg Q12HR PO 08/15/17 21:00 08/18/17 09:51 Diltiazem HCl (Cardizem Cd) 240 mg DAILY PO 08/18/17 09:00 08/18/17 09:52 (Humera Roy) Physical Exam General General Appearance: No Acute Distress, Comfortable, Pale Appearance Remarks Slow improvement of Weakness, but more alert, decreased appetite ([place],Humera M. SCOURER) Eyes Eye Exam: Pupils Equal, Pupils Reactive ([place],Humera M. SCOURER) Ears & Nose Ears & Nose Exam: Nasal Mucosa [place] ([place],Humera M. SCOURER) Throat Throat Exam: Oral Mucosa [place] & Moist (Manuel[place],Humera M. SCOURER) Neck Neck Exam: Neck Supple, Trachea Midline ([place],Humera M. SCOURER) Pulmonary Resp Exam: Diminished Breath Sounds ([place],Humera M. SCOURER) Cardiology CV Exam: Regular CV Remarks pulse 90s ([place],Humera M. SCOURER) Gastrointestinal/Abdomen GI Exam: Soft, Non-Tender, Bowel Sounds Present, Non-Distended GI Remarks Soft taut, nontender, bowel sounds soft ([place],Humera M. SCOURER) Musculoskeletal MS Exam: Joints Intact MS Remarks ([place] cowanan M. SCOURER) Integumentary Skin Exam: Warm, Dry (ManuelaHumera cowan M. SCOURER) Extremeties Extremities Exam: Trace Edema ([place] cow[place] M. SCOURER) Neurologic Neuro Exam: Alert, Awake, Oriented, Speech Clear, Moving All Extremities ([place],Humera M. SCOURER) Psychiatric Psych Exam: Appropriate Responses (Fiona Royan M. SCOURER) VTE Prophylaxis VTE Prophylaxis Device: SCDs VTE Prophylaxis Meds: Heparin ([place],Humera M. SCOURER) Assessment/Plan Problem List: (1) Hydronephrosis ICD Codes: N13.30 - Unspecified hydronephrosis Status: Acute (2) Renal failure ICD Codes: N19 - Unspecified kidney failure Status: Acute (3) UTI (lower urinary tract infection) ICD Codes: N39.0 - UTI (lower urinary tract infection) Status: Acute (4) Serum calcium elevated ICD Codes: E83.52 - Hypercalcemia Status: Acute (5) Breast cancer ICD Codes: C50.919 - Breast cancer Status: Chronic (6) Hypercalcemia ICD Codes: E83.52 - Hypercalcemia Status: Acute (7) metastatic liver lesions Status: Acute (8) Anemia ICD Codes: D64.9 - Anemia Status: Acute (9) Sinus tachycardia ICD Codes: R00.0 - Tachycardia, unspecified Status: Acute (10) Accelerated essential hypertension ICD Codes: I10 - Essential (primary) hypertension Status: Acute Assessment/Plan Vital signs reviewed, trends normal Labs reviewed, hypokalemia resolved 3.7. leukocytosis mild , CBCs shows mild but stable anemia, 10.2 monitoring bowel regimen, meds given yesterday with check for impaction Bilat hydronephrosis Bladder wall thickening per CT findings, malignancy found, metastatic disease originally from previous breast cancer 08/12 s/p cystoscopy, bilateral retrograde pyelogram, bilateral ureteral stent insertion appreciate urology and renal input, working towards improvement of function if patient wants any treatment. monitor I/O and encourage PO fluids and food. Encouraged small amounts of frequent feedings. Will add boost 3 times a day with meals, still has minimal decreased appetite with generalized abdominal pain Hx of breast cancer CT abdomen, 08/11 shows multiple new ill-defined low-attenuation lesions in the liver characteristic of metastatic disease. has multiple subtle scattered lytic osseous lesions, which are non small cell carcinoma, original breast. oncology following for plan of care -s/p liver bx in IR 08/14, . Results show mammary carcinoma, Patient initially said no further treatment to ., Labs pending for treatment regimen. Will f/u in office after medically cleared. Hypertension uncontrolled initially, BP more stable, hydralazine if needed for blood pressure control Tachycardia resolved, HR < 100 Physical debility Physical therapy assisting with strengthening, and out of bed daily, planned for rehabilitation SNF today, case management working with daughter and plan a care DVT prophylaxis heparin PUD prophylaxis, Pepcid Monitoring labs Discharge planning, medically stable for snf rehabilitation next level of care D/W RN D/W Dr. Victor, seen on his behalf D/W pt (Humera Roy) Assessment/Plan pt is seen & Examined chart reviewed metastatic breast cancer w liver / Bones & bladder mets ARF d/t hydro s/p cysto w stent , minimal improvement of renal function gen weakness /poor performance status ok to d/c to SNF for inpatient rehab f/u oncology/urology f/u renal & pcp d/w pt d/w humera see MRS see HRS (Karen Victor MD) Problem Qualifiers (1) Hydronephrosis: Qualified Codes: N13.2 - Hydronephrosis with renal and ureteral calculous obstruction (2) Renal failure: Qualified Codes: N17.9 - Acute kidney failure, unspecified (3) Anemia: Humera Roy Aug 18, 2017 10:51 Karen Victor MD Aug 18, 2017 11:20
[2017-08-18] MEDS ORDERED: HYDR-3516 PO (11:22)
[2017-08-18 12:00] VITALS: BP 121/71; PULSE 97; RESP 18; TEMP 98.5; O2SAT 96
--- NOTE | 2017-08-18 12:29 | HHI.NPPN ---
Subjective History of Present Illness 76-year-old female with past medical history of hypertension, hyperlipidemia, spinal stenosis, macular degeneration, and breast cancer who came to the hospital with complaint of recurrent falls and generalized weakness. I was called to see the patient because of elevated BUN and creatinine. Additional Remarks No acute complaints, ongoing fatigue. Objective Data Data Vital Signs Date Time Temp Pulse Resp B/P (MAP) Pulse Ox O2 Delivery O2 Flow Rate FiO2 08/18/17 08:00 97.2 88 20 119/77 (91) 97 08/18/17 04:00 97.6 84 20 108/56 (73) 97 08/18/17 04:00 77 08/18/17 00:02 72 08/17/17 21:25 98.0 90 18 129/73 (91) 97 08/17/17 20:00 75 08/17/17 16:00 100.1 91 18 139/66 (90) 99 -: 08/18/17 0730 08/16/17 1513 Physical Exam General Appearance: No Acute Distress, Comfortable, Pale Eyes Eye Exam: Pupils Equal, Pupils Reactive Ears & Nose Ears & Nose Exam: Nasal Mucosa [place] Throat Throat Exam: Oral Mucosa [place] & Moist Neck Neck Exam: Neck Supple, Trachea Midline Pulmonary Resp Exam: Diminished Breath Sounds Cardiology CV Exam: Regular Gastrointestinal/Abdomen GI Exam: Soft, Non-Tender, Bowel Sounds Present, Non-Distended Musculoskeletal MS Exam: Joints Intact Integumentary Skin Exam: Warm, Dry Extremeties Extremities Exam: Trace Edema Neurologic Neuro Exam: Alert, Awake, Oriented, Speech Clear, Moving All Extremities Psychiatric Psych Exam: Appropriate Responses VTE Prophylaxis Device: SCDs Assessment/Plan Assessment Summary: PRATIK/Acute Renal Failure Electrolyte Assessment: Hypercalcemia Problem List: (1) Hydronephrosis ICD Codes: N13.30 - Unspecified hydronephrosis Status: Acute (2) Breast cancer ICD Codes: C50.919 - Breast cancer Status: Chronic (3) Serum calcium elevated ICD Codes: E83.52 - Hypercalcemia Status: Acute (4) Anemia ICD Codes: D64.9 - Anemia Status: Acute (5) UTI (lower urinary tract infection) ICD Codes: N39.0 - UTI (lower urinary tract infection) Status: Acute (6) Renal failure ICD Codes: N19 - Unspecified kidney failure Status: Acute Plan Patient had cystoscopy and bilateral stents done. Urine out put is good. Avoid Nephrotoxins Creatinine has been improving, no BMP today. - Will order labs. Planned possible d/c to SNF. May have some permanent damage to renal function. Encourage oral intake. Oncology following for possible metastatic Breast Cancer. Problem Qualifiers (1) Hydronephrosis: Qualified Codes: N13.2 - Hydronephrosis with renal and ureteral calculous obstruction (2) Anemia: (3) Renal failure: Qualified Codes: N17.9 - Acute kidney failure, unspecified Rashel Vela MD Aug 18, 2017 12:29
[2017-08-18 16:28] LABS: BICARBONATE 28.9 MEQ/L (21.0-32.0); POTASSIUM 4.4 MEQ/L (3.5-5.1)
--- NOTE | 2017-09-12 17:51 | HHI.DS ---
Discharge Summary Admission Date Aug 11, 2017 at 17:25 Discharge Date: Aug 18, 2017 Admitting Diagnosis Acute renal failure (1) Hydronephrosis ICD Codes: N13.30 - Unspecified hydronephrosis Status: Acute (2) Renal failure ICD Codes: N19 - Unspecified kidney failure Status: Acute (3) Accelerated essential hypertension ICD Codes: I10 - Essential (primary) hypertension Status: Acute (4) Serum calcium elevated ICD Codes: E83.52 - Hypercalcemia Status: Acute (5) Breast cancer ICD Codes: C50.919 - Breast cancer Status: Chronic (6) Anemia ICD Codes: D64.9 - Anemia Status: Acute (7) Bone metastases ICD Codes: C79.51 - Secondary malignant neoplasm of bone (8) Breast cancer ICD Codes: C50.919 - Breast cancer Status: Chronic (9) metastatic liver lesions Status: Acute (10) Hypercalcemia ICD Codes: E83.52 - Hypercalcemia Status: Acute (11) Sinus tachycardia ICD Codes: R00.0 - Tachycardia, unspecified Status: Acute Procedures Aug 12, 2017 cystoscopy, bilateral retrograde pyelogram, bilateral ureteral stent insertion 08/14/2017 liver bx Imaging Last Impressions Liver Biopsy CT 08/14/17 0000 Signed Impressions: Service Date/Time: Monday, August 14, 2017 11:03 - CONCLUSION: Uncomplicated CT guided biopsy. Maverick Pichardo MD Chest X-Ray 08/14/17 0000 Signed Impressions: Service Date/Time: Monday, August 14, 2017 16:47 - CONCLUSION: 1. Cardiomegaly. No acute abnormality. Rashel Henderson MD Abdomen/Pelvis CT 08/11/17 1510 Signed Impressions: Service Date/Time: Friday, August 11, 2017 15:39 - CONCLUSION: 1. Multiple new ill-defined low-attenuation lesions in the liver characteristic of metastatic disease. There is new ascitic fluid as well. 2. Multiple subtle scattered lytic osseous lesions most characteristic of metastatic disease. 3. The uterus is more prominent than on the prior study with ill-defined masslike areas along the posterior aspect. The uterus is not well defined from the surrounding bowel secondary to lack of contrast. 4. Bilateral moderate to severe hydronephrosis. There is dilatation of both ureters. 5. Bladder wall thickening involving the posterior and superior aspects of the bladder which is new from the prior study. This is nonspecific but of concern for possible tumor given the bilateral hydronephrosis. Marshal Ayala MD Head CT 08/11/17 1312 Signed Impressions: Service Date/Time: Friday, August 11, 2017 15:32 - CONCLUSION: Negative trauma CT Marshal Ayala MD Hospital Course 76-year-old white female came in the hospital with frequent falls over the past week. Patient daughter says she has fell 3 times at least, but patient doesn't remember. Has recently been placed on BP medicine by her PCP, still had elevated blood pressure, 204/106 on admission to ER, heart rate tachycardic, appears to be sinus tach around 110, high noted 119. Patient also is complaining of abdominal pain, left and right lower quadrants pain has been associated with nausea and decreased appetite for approximately one month. States approximately 8 pound weight loss over the past month, appetite decrease even more over the past 5 days. Patient notes polyuria, but no dysuria. Denies chest pain, no shortness of breath, occasional headache but none now. Evaluated in the ED. Had imaging studies and lab work up . CT abd. showed bila hydronephrosis with poss liver mets. She had ST on monitor. Was severely hypertensive. Calcium was elevated. Pt. was admitted for further evaluation and treatment: 76 year presented with falls, weakness. Given IVF, consultation obtained from urology, oncology, and nephrology. Found with Bilat hydronephrosis and Bladder wall thickening per CT findings, poss malignancy 08/12 s/p cystoscopy, bilateral retrograde pyelogram, bilateral ureteral stent insertion -appreciated urology input. -continued with man, monitored I/O -remained with some hematuria Hypercalcemia PRATIK Hypokalemia -put on IVF and Lasix IV -calcium trended down slowly -creat improved slowly although she remained with residual damage. -evaluated by nephrology -avoided nephrotoxic agents -replaced electrolytes as needed -likely will have permanent renal damage Hx of breast cancer CT abdomen, 08/11 shows multiple new ill-defined low-attenuation lesions in the liver characteristic of metastatic disease. has multiple subtle scattered lytic osseous lesions. -oncology following -Ca 15-3 --39.1 -s/p liver bx in IR 08/14, results show metastatic non-small cell cancer consistent with breast primary -per oncology, await hormone testing to decide on appropriate treatment Hypertension uncontrolled-initially,. Tachycardia -continue with home meds -Hydralazine PRN -continue CCB and BB -HR trending up. Inc. Cardizem to 60 mg po QID -BP and HR stabilized. Physical debility -PT for evaluation and treatment -remained weak. DVT prophylaxis heparin PUD prophylaxis, Pepcid Pt. improved slowly, remained debilitated CM consult for dc planning, arrange C vs SNF pt.'s family wanted rehab and further treatment of cancer. BP and HR stabilized. Pt. discharged to SNF in stable condition F/U urology, oncology Pt Condition on Discharge: Guarded Discharge Disposition: Discharge to SNF Discharge Instructions DIET: Follow Instructions for: Heart Healthy Diet Activities you can perform: Weight Bearing as Chris, Sexual Activity Follow up Referrals: Nephrology - [address] Rich Oncology/Hematology - 1 Week with Devora Leal MD Urology - 1 Week New Medications: Hydrocodone-Acetaminophen (Hydrocodone-Acetaminophen) 5-325 mg Tab 1 TAB PO Q4H PRN for PAIN SCALE 5 TO 10 for 10 Days, #60 TAB Metoprolol Tartrate (Metoprolol Tartrate) 25 Mg Tab 25 MG PO Q12HR for Blood Pressure Management MDD 2 for 30 Days, #60 TAB 6 Refills Sennosides-Docusate Sodium (Senna Plus 8.6-50 mg) 8.6 Mg-50 Mg Tab 1 TAB PO BID for Constipation MDD 2 for 30 Days, #60 TAB Changed Medications: Hydrocodone-Acetaminophen (Hydrocodone-Acetaminophen) 10-325 mg Tab 1 TAB PO QID PRN for pain for 30 Days, #30 TAB 0 Refills (Medication details modified) Continued Medications: Citalopram (Citalopram) 10 Mg Tab 10 MG PO DAILY for Control Depression, #30 TAB 0 Refills Cyclobenzaprine (Flexeril) 10 Mg Tab 10 MG PO TID for Muscle Spasm, #21 TAB 0 Refills Letrozole (Letrozole) 2.5 Mg Tab 1 TAB PO DAILY Pravastatin (Pravastatin) 40 Mg Tab 40 MG PO DAILY for Cholesterol Management, #30 TAB 0 Refills Discontinued Medications: Losartan (Losartan) 50 Mg Tab 50 MG PO DAILY for Blood Pressure Management, #30 TAB 0 Refills Jada Taylor Sep 12, 2017 17:51
== END 2017-08-18 18:39 | DRG 683 ==
LOC: NEPE 12:14 → NEDA 17:25 → N07A 19:15 → HCIS 08-12 19:10 → HOCB 08-17 00:30 → UNDODISIN 08-18 18:39
PROVIDERS: ADMIT Specialist; ATTEND Specialist
PROC: BT141ZZ Fluoroscopy of Kidneys, Ureters and Bladder using Low Osmolar Contrast (ICD-10-PCS; 2017-08-12)
PROC: 0T788DZ Dilation of Bilateral Ureters with Intraluminal Device, Via Natural or Artificial Opening Endoscopic (ICD-10-PCS; principal; 2017-08-12 09:17)
PROC: 0FB13ZX Excision of Right Lobe Liver, Percutaneous Approach, Diagnostic (ICD-10-PCS; 2017-08-14)
DX: N17.9 Acute kidney failure, unspecified (principal); N39.0 Urinary tract infection, site not specified; C79.11 Secondary malignant neoplasm of bladder; C78.7 Secondary malignant neoplasm of liver and intrahepatic bile duct; C50.911 Malignant neoplasm of unspecified site of right female breast; D64.9 Anemia, unspecified; I10 Essential (primary) hypertension; E83.52 Hypercalcemia; E78.5 Hyperlipidemia, unspecified; M48.00 Spinal stenosis, site unspecified; R00.0 Tachycardia, unspecified; R29.6 Repeated falls; K59.00 Constipation, unspecified; G89.29 Other chronic pain; M54.9 Dorsalgia, unspecified; E87.6 Hypokalemia; R11.2 Nausea with vomiting, unspecified; R63.4 Abnormal weight loss; R53.1 Weakness; R31.9 Hematuria, unspecified; N13.30 Unspecified hydronephrosis; Z90.11 Acquired absence of right breast and nipple; Z79.811 Long term (current) use of aromatase inhibitors; Z92.21 Personal history of antineoplastic chemotherapy; Z91.81 History of falling; Z92.3 Personal history of irradiation; Z17.0 Estrogen receptor positive status [ER+]
CPT/HCPCS: 47000; 70450; 71010; 74176; 74420; 77012; 80048; 80053; 80069; 81001; 82550; 84132; 84155; 84165; 84484; 84550; 85025; 85027; 85610; 85652; 85730; 86300; 88307; 88341; 88342; 88361; 93005; 94150; 96361; 96374; 96375; C1769; C2617; J0131; J0330; J0360; J0690; J1644; J1940; J2250; J2270; J2405; J2430; J3010; J3480; J7030; J7040